=== PATIENT | female | born 1975 | race Caucasian/White ===

== ENCOUNTER 2016-07-21 17:13 | Inpatient (IN) | payer OTHER ==
[~2016-07-21] VITALS: Ht 172.7 cm; Wt 99.9 kg
[~2016-07-21 17:13] MED LIST: ATV5X PO; CHOL20009 PO; HYDR-3785 PO; IMD2X PO; MULT-506 PO; ONDA4TAB46 PO; PRZ1 PO; RBX750 PO; ULT/50 PO
[2016-07-21] MEDS ORDERED: LORAZEPAM 2 MG/ML 1 ML VIAL IV STA (17:30)
[2016-07-21] MEDS ORDERED: SODIUM CHLORIDE 0.9% 1000ML 1,000 ML IV STA (17:30)
[2016-07-21] MEDS ORDERED: LRS10 PO (17:58)
[2016-07-21 18:02] LABS: BASO % 0.2 %; BASO ABS # 0.03 K/uL (0-0.2); COMPLETE YES; EOS % 0.2 %; HEMATOCRIT 41.6 % (37-47); IG% 0.2 %; LYMPH % 8.4 %; LYMPH ABS # 1.09 K/uL (1.2-3.4); MEAN CELL VOLUME 89.1 fL (80-100); MEAN CORPUSCULAR HEMOGLOBIN 30.2 pg (25-34); MEAN CORPUSCULAR HGB CONC 33.9 g/dl (32-36); MEAN PLATELET VOLUME 9.6 fL (7.4-10.4); MONO % 4.2 %; NEUT % 86.8 %; PLATELET COUNT 307 K/uL (130-400); RED BLOOD COUNT 4.67 M/uL (4.2-5.4); WHITE BLOOD COUNT 12.92 K/uL (4.8-10.8)
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
[2016-07-21 18:19] LABS: URINE APPEARANCE CLEAR (CLEAR); URINE BILIRUBIN NEG (NEG); URINE COLOR YELLOW; URINE NITRITE NEG (NEG); URINE SPECIFIC GRAVITY 1.011 (1.000-1.030); UROBILINOGEN NEG (NEG)
[2016-07-21 18:21] LABS: ALT/SGPT 14 U/L (12-78); AST/SGOT 12 U/L (15-37); BLOOD UREA NITROGEN 12 mg/dl (7-18); BUN/CREATININE RATIO 13.8 (10-20); CALCIUM 8.5 mg/dl (8.5-10.1); CARBON DIOXIDE 24 mmol/L (21-32); CHLORIDE 105 mmol/L (98-107); CREATININE 0.89 mg/dl (0.60-1.20); GLUCOSE 84 mg/dl (70-99); POTASSIUM 3.6 mmol/L (3.5-5.1); SODIUM 140 mmol/L (136-145)
--- NOTE | 2016-07-21 18:24 | DIAGNOSTIC IMAGING REPORT ---
CHEST ONE VIEW PORTABLE CLINICAL HISTORY: Overdose. COMPARISON STUDY: Chest CT May 04, 2011 FINDINGS: There are cholecystectomy clips. No pneumothorax or pleural effusion is present. No consolidation is identified and there is no evidence of pulmonary edema. Cardiomediastinal silhouette is normal. IMPRESSION: No acute cardiopulmonary findings. Electronically signed by: Joshua Bobo M.D. 07/21/2016 6:23 PM
[2016-07-21 18:25] LABS: ALKALINE PHOSPHATASE 63 U/L (45-117)
[2016-07-21 18:25] LABS: MANUAL MICROSCOPIC REQUIRED? NO; REVIEW REQ? NO
[2016-07-21 18:25] LABS: PROTHROMBIN TIME (PATIENT) 10.4 SECONDS (9.0-12.0)
[2016-07-21 18:34] LABS: ACETAMINOPHEN < 2 ug/ml (10-30)
[2016-07-21 18:39] LABS: BENZODIAZEPINE, URINE NEG (NEG); COCAINE,URINE NEG (NEG); PHENCYCLIDINE, URINE NEG (NEG)
[2016-07-21 18:40] LABS: PREG INTERNAL NEGATIVE QC NEG CLEAR BACKGROUND; PREG INTERNAL POSITIVE QC POS CONTROL LINE
[2016-07-21 18:53] VITALS: O2SAT 99
--- NOTE | 2016-07-21 19:04 | DIAGNOSTIC IMAGING REPORT ---
CT OF THE HEAD WITHOUT CONTRAST CLINICAL HISTORY: Overdose. COMPARISON STUDY: Head CT March 28, 2016. CT DOSE: 601.98 mGy.cm TECHNIQUE: Helical axial images of the head were obtained without IV contrast. Automated exposure control was utilized for the study. FINDINGS: No acute intracranial hemorrhage, midline shift or mass effect is present. Ventricular system is normal. The basilar cisterns are patent. There are no extra-axial collections. Fonseca-white differentiation is maintained. There are no findings to suggest acute dural sinus thrombosis or acute territorial infarct. There is no calvarial fracture. Visualized portions of the sinuses and mastoid air cells are clear. IMPRESSION: No acute intracranial findings. Electronically signed by: Joshua Bobo M.D. 07/21/2016 7:03 PM
[2016-07-21] MEDS ORDERED: TRAMADOL HCL 50 MG TAB PO STA (22:10)
[2016-07-21] MEDS ORDERED: BACLOFEN TAB 20 MG TAB PO STA (22:10)
[2016-07-21] MEDS ORDERED: hydrOXYzine HCL 25 MG TAB PO STA (23:30)
[2016-07-21] MEDS ORDERED: PRAZOSIN HCL 1 MG CAP PO STA (23:44)
[2016-07-22] MEDS ORDERED: NURSING VERBAL MED ORDER ONE (00:30)
[2016-07-22 00:35] VITALS: O2SAT 95
[2016-07-22 00:45] VITALS: BP 107/68; PULSE 105; TEMP 36.9; Ht 172.7 cm; Wt 99.9 kg
[2016-07-22] MEDS ORDERED: ALUMINUM/MAGNESIUM SUSP 30 ML UDC PO PRN (02:30)
[2016-07-22] MEDS ORDERED: SODIUM CHLORIDE 0.65% NA SOLN 45 ML (OCEAN) PRN (02:30)
[2016-07-22] MEDS ORDERED: LORAZEPAM 0.5 MG TAB PO PRN (02:30)
[2016-07-22] MEDS ORDERED: BISMUTH SUBSALICYLATE PER ML OMNICELL CHARGE PO PRN (02:30)
[2016-07-22] MEDS ORDERED: ACETAMINOPHEN 325 MG TAB PO PRN (02:30)
[2016-07-22] MEDS ORDERED: hydrOXYzine HCL 25 MG TAB PO PRN (02:30)
[2016-07-22] MEDS ORDERED: MAGNESIUM HYDROXIDE SUSP 30 ML UDC PO PRN (02:30)
--- NOTE | 2016-07-22 04:40 | EMERGENCY ROOM VISIT NOTE ---
ED Visit Note First contact with patient: 23:29 40 yr old female medically cleared and signed out to me by Dr Orosco awaiting [facility] placement following attempted overdose on her ativan witnessed by significant other. Evaluated at sign out and getting evening medications. [facility] accepted her to their facility and I signed 201. She was stable and transferred up there without issue.
[2016-07-22 06:50] VITALS: BP 106/67; PULSE 86; TEMP 36.5
[2016-07-22] MEDS ORDERED: LORAZEPAM 1 MG TAB ONE (09:25)
[2016-07-22] MEDS ORDERED: HALOPERIDOL 5 MG TAB ONE (09:25)
[2016-07-22] MEDS ORDERED: LORAZEPAM 2 MG/ML 1 ML VIAL IM PRN (09:30)
[2016-07-22] MEDS ORDERED: LORAZEPAM 1 MG TAB PO PRN (09:30)
[2016-07-22] MEDS ORDERED: HALOPERIDOL LACTATE 5 MG/ML 1 ML VIAL IM PRN (09:30)
[2016-07-22] MEDS ORDERED: HALOPERIDOL 5 MG TAB PO PRN (09:30)
[2016-07-22] MEDS: BACLOFEN 10 MG TAB PO SCH ×3 (09:38→22:03)
[2016-07-22] MEDS: TRAMADOL HCL 50 MG TAB PO PRN ×2 (09:43→22:08)
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
--- NOTE | 2016-07-22 14:26 | Neurology Consultation ---
Neurology Consultation Date of Consultation: Jul 22, 2016. Attending Physician: Jo Andrews MD Primary Care Physician: Giorgio Weiss D.O. Reason for Consultation: chronic headache History of Present Illness Source: patient Manuela is seen in the psychiatry unit for recurrent depression, PTSD, generalized anxiety and panic disorder as well as cannabis and opiate use disorders. She is diagnosed with personality disorder. She was seen in the ED due to an overdose attempt on Ativan. She had attempted to swallow about 20 tablets and then her boyfriend grabbed the bottle and then she spit out the ones in her mouth. She feels the chronic headaches an pain are not tolerable and she can't live this way. She last saw Dr Bacon in Neurology in March and no new medications were started. She has had the most relief from the combination of Ultram 50 mg and Robomol 750 QID. She states last month the Robomol was changed to baclofen which she thinks does not help. Dr Bacon had set her up for pain mgt and EEG for further management but she didn't follow through with the visits stating she was in too much pain to go to the appointments. She states the steroids were tried in the past with little effect. It actually escalated the psychiatric issues. Currently she has a headache that is stabbing behind her eye and it wraps around to the front of her face and jaw. She states she fell 2 months ago and hit her head 3 times while falling down the stairs. denies CP, SOB, abdominal pain, numbness tingling , swallowing issues. +vision changes (blurred) but she does not have her glasses , headaches behind left eye, + generalized pain, + 20 pound weight loss. 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 Allergies Coded Allergies: [place] (Verified Allergy, Severe, VOMITING,ITCHY TONGUE,FACE SWELLING, ) Macadamia Nut Oil (Verified Allergy, Severe, RASH,VOMITING,ITCHY TONGUE, FACE SWELLING, 07/22/16) Valproic Acid (Verified Allergy, Severe, TONGUE SWELLING, 07/22/16) Amoxicillin (Verified Allergy, Intermediate, BREAKOUT, 07/22/16) Ciprofloxacin (Verified Allergy, Intermediate, WELTS/SWELLING, 07/22/16) Clavulanic Acid (Verified Allergy, Intermediate, BREAKOUT, 07/22/16) Pineapple (Verified Allergy, Intermediate, VOMITING, ITCHY TONGUE, ) Iodine (Verified Adverse Reaction, Intermediate, VOMITING, 07/22/16) Erythromycin (Verified Adverse Reaction, Mild, NAUSEA, 07/21/16) Iodinated Contrast Media (Verified Adverse Reaction, Mild, VOMITING, 07/22) Current Inpatient Medications Current Inpatient Medications Medications (Trade) Dose Ordered Sig/Anil Route Start Time Stop Time Status Last Admin Dose Admin Acetaminophen (Tylenol Tab) 650 mg Q4H PRN PO 07/22/16 02:30 08/21/16 02:29 Al Hydroxide/Mg Hydroxide (Maalox Susp) 30 ml Q4H PRN PO 07/22/16 02:30 08/21/16 02:29 Bismuth Subsalicylate (Kaopectate Liqd) 15 ml DAILY PRN PO 07/22/16 02:30 08/21/16 02:29 Magnesium Hydroxide (Milk Of Magnesia Susp) 30 ml DAILY PRN PO 07/22/16 02:30 08/21/16 02:29 Sodium Chloride ([place]nab Nasal Mclean) PRN PRN NA 07/22/16 02:30 08/21/16 02:29 Hydroxyzine HCl (Vistaril Tab) 50 mg HSZ PRN PO 07/22/16 02:30 08/21/16 02:29 Hydroxyzine HCl (Vistaril Tab) 25 mg Q4H PRN PO 07/22/16 02:30 08/21/16 02:29 Prazosin HCl (Prazosin) 1 mg HS PO 07/22/16 22:00 08/21/16 21:59 Ondansetron HCl (Zofran Tab) 4 mg Q6H PRN PO 07/22/16 02:30 08/21/16 02:29 Baclofen (Lioresal Tab) 10 mg TID PO 07/22/16 09:00 08/21/16 08:59 07/22/16 09:38 10 MG Tramadol HCl (Ultram Tab) 50 mg Q6H PRN PO 07/22/16 02:30 08/21/16 02:29 07/22/16 09:43 50 MG Haloperidol Lactate (Haldol Inj) 5 mg Q4 PRN IM 07/22/16 09:30 08/21/16 09:29 Haloperidol (Haldol Tab) 5 mg Q4H PRN PO 07/22/16 09:30 08/21/16 09:29 Lorazepam (Ativan Inj) 1 mg Q4H PRN IM 07/22/16 09:30 08/21/16 09:29 Lorazepam (Ativan Tab) 1 mg Q4 PRN PO 07/22/16 09:30 08/21/16 09:29 Physical Exam Vital Signs (Past 24 Hrs): Date Time Temp Pulse Resp B/P Pulse Ox O2 Delivery O2 Flow Rate FiO2 07/22/16 06:50 36.5 86 16 106/67 07/22/16 00:45 36.9 105 18 107/68 07/22/16 00:35 64 16 134/79 95 Room Air 07/21/16 23:11 64 07/21/16 19:54 65 18 108/54 96 Room Air 07/21/16 19:42 65 07/21/16 18:53 99 Room Air 07/21/16 18:53 70 18 113/53 99 Room Air 07/21/16 17:20 37.1 81 18 124/81 99 Room Air Physical Exam: Constitutional: appearance nourished, healthy and normal Ears, Nose, Mouth and Throat: mucous membranes moist, no injection and skin normal, eyes normal Cardiovascular: normal S-1 and S-2 and regular rate and rhythm Respiratory: clear to auscultation (CTA) and no rales, rhonchi or wheeze Musculoskeletal: no peripheral edema and good distal pulses Skin: no stigmata of neurocutaneous disease noted and normal and intact Eyes: extraocular muscles intact (EOMI) and pupils equal, round and reactive to light (PERRL), pupils dilated, good vascular pulsation disc flat NEUROLOGIC EXAMINATION: Mental status: Alert and interactive Oriented to full date and location Oriented to person Speech fluent with no evidence of aphasia Cranial Nerves smile eye brow raise symmetric, tongue midline Reflexes: Deep tendon reflexes were symmetrical and graded 2/5. Plantar responses were flexor. Sensory: no sensory deficits with vibration, cool touch Coordination: Romberg absent Gait/Stance: Posture normal. Gait normal: with steady with steps, base, turning, and tandem gait. Motor: Negative for pronator drift of out stretched arms with eyes closed. Strength: biceps triceps hand manager storage 4/5 bilaterally (no good effort) hip flex bilaterally 4 /5 halted by pain, plantar flex ext bilaterally 5/5 Laboratory Results Past 24 Hours: 07/21/16 17:50 Red Blood Count 4.67, Mean Corpuscular Volume 89.1, Mean Corpuscular Hemoglobin 30.2, Mean Corpuscular Hemoglobin Concent 33.9, Mean Platelet Volume 9.6, Neutrophils (%) (Auto) 86.8, Lymphocytes (%) (Auto) 8.4, Monocytes (%) (Auto) 4.2, Eosinophils (%) (Auto) 0.2, Basophils (%) (Auto) 0.2, Neutrophils # (Auto) 11.22, Lymphocytes # (Auto) 1.09, Monocytes # (Auto) 0.54, Eosinophils # (Auto) 0.02, Basophils # (Auto) 0.03 07/21/16 17:50 Test 07/21/16 17:50 07/21/16 17:52 07/21/16 17:55 07/21/16 17:57 White Blood Count 12.92 K/uL (4.8-10.8) Red Blood Count 4.67 M/uL (4.2-5.4) Hemoglobin 14.1 g/dL (12.0-16.0) Hematocrit 41.6 % (37-47) Mean Corpuscular Volume 89.1 fL (80-100) Mean Corpuscular Hemoglobin 30.2 pg (25-34) Mean Corpuscular Hemoglobin Concent 33.9 g/dl (32-36) Platelet Count 307 K/uL (130-400) Mean Platelet Volume 9.6 fL (7.4-10.4) Neutrophils (%) (Auto) 86.8 % Lymphocytes (%) (Auto) 8.4 % Monocytes (%) (Auto) 4.2 % Eosinophils (%) (Auto) 0.2 % Basophils (%) (Auto) 0.2 % Neutrophils # (Auto) 11.22 K/uL (1.4-6.5) Lymphocytes # (Auto) 1.09 K/uL (1.2-3.4) Monocytes # (Auto) 0.54 K/uL (0.11-0.59) Eosinophils # (Auto) 0.02 K/uL (0-0.5) Basophils # (Auto) 0.03 K/uL (0-0.2) RDW Standard Deviation 43.6 fL (36.4-46.3) RDW Coefficient of Variation 13.5 % (11.5-14.5) Immature Granulocyte % (Auto) 0.2 % Immature Granulocyte # (Auto) 0.02 K/uL (0.00-0.02) Anion Gap 11.0 mmol/L (3-11) Est Creatinine Clear Calc Drug Dose 102.2 ml/min Estimated GFR () 93.3 Estimated GFR (Non- 80.5 BUN/Creatinine Ratio 13.8 (10-20) Osmolality 290 mOsm/kg (280-300) Calcium Level 8.5 mg/dl (8.5-10.1) Total Bilirubin 0.7 mg/dl (0.2-1) Direct Bilirubin 0.1 mg/dl (0-0.2) Aspartate Amino Transf (AST/SGOT) 12 U/L (15-37) Alanine Aminotransferase (ALT/SGPT) 14 U/L (12-78) Alkaline Phosphatase 63 U/L (45-117) Total Creatine Kinase 34 U/L (26-192) Creatine Kinase MB < 0.5 ng/ml (0.5-3.6) Creatine Kinase MB Ratio (0-3.0) Troponin I < 0.015 ng/ml (0-0.045) Total Protein 7.9 gm/dl (6.4-8.2) Albumin 4.1 gm/dl (3.4-5.0) Lipase 124 U/L (73-393) Human Chorionic Gonadotropin, Qual NEG (NEG) Salicylates Level < 1.7 mg/dl (2.8-20) Acetaminophen Level < 2 ug/ml (10-30) Ethyl Alcohol mg/dL < 3.0 mg/dl (0-3) Prothrombin Time 10.4 SECONDS (9.0-12.0) Prothromb Time International Ratio 1.0 (0.9-1.1) Activated Partial Thromboplast Time 25.8 SECONDS (21.0-31.0) Partial Thromboplastin Ratio 1.0 Urine Color YELLOW Urine Appearance CLEAR (CLEAR) Urine pH 6.0 (4.5-7.5) Urine Specific [place] 1.011 (1.000-1.030) Urine Protein NEG (NEG) Urine Glucose (UA) NEG (NEG) Urine Ketones NEG (NEG) Urine Occult Blood NEG (NEG) Urine Nitrite NEG (NEG) Urine Bilirubin NEG (NEG) Urine Urobilinogen NEG (NEG) Urine Leukocyte Esterase NEG (NEG) Urine Opiates Screen NEG (NEG) Urine Methadone, Qualitative NEG (NEG) Urine Barbiturates NEG (NEG) Urine Phencyclidine (PCP) Level NEG (NEG) Ur Amphetamine/Methamphetamine NEG (NEG) MDMA (Ecstasy) Screen NEG (NEG) Urine Benzodiazepines Screen NEG (NEG) Urine Cocaine Metabolite NEG (NEG) Urine Marijuana (THC) POS (NEG) Imaging CT head- No acute intracranial findings. Impression 40 year old female with psychiatric issues, chronic pain, migraine headaches Plan 1. no further imaging needed- full work up as outpatient for headaches 2. adding additional medication (as she had tried most available) does not seem like a good option at this point 3. EEG - to r/o any seizure focus to headaches and facial phenomenon 4. pain mgt -would recommend injection of trigger points or Botox may be an option 5. possible referral to headache specialist as an out patient 6. further recommendations to follow. I have seen and discussed above patient with Dr Twan Bacon, neurology I have seen this patient on a single outpatient visit in March and felt than that her chronic headache issue would not be solved by yet another medication trial ( she has been on over 40 medications for treatment of her depression and headache issues and to date none has been effective ( other than self medication with marijuana ) and she has multiple comorbidities as well that interfere with the medical model of headache treatment I was planning to have her evaluated for potential injection management ( possibly botox ) and was going to get an eeg to readdress some of the potential seizure disorder questions that have been raised periodically but these plans never came to fruition due to multiple other issues not the least wof which was a mild closed head trauma in the mid fall of this year. I felt that she was going to need a tertiary level of care but her options for this are somewhat limited by insurance and by access within [facility] At this time agree with having pain management evaluate her, getting an eeg, and considering a trial fo hig dose then rapidly tapering steroids if psychiatry would feel it safe in this iinpatient setting We will drop by tomorrow to assess ow things have evolved and will read the eeg when done I agree with the plans outlined by Lilli AVILEZ and have discussed them with her Twan Bacon MD
[2016-07-22] MEDS: PRAZOSIN HCL 1 MG CAP PO SCH (22:04)
[2016-07-22] MEDS: hydrOXYzine HCL 25 MG TAB PO PRN (22:07)
[2016-07-23 06:09] VITALS: BP_SYST 117; BP_SYST 93; BP_DIAS 57; BP_DIAS 77; PULSE 104; PULSE 75; TEMP 36.9
[2016-07-23] MEDS ORDERED: BUPIVACAINE 0.5 % 5 MG/1 ML PF 10ML VIAL ONE (08:23)
[2016-07-23] MEDS ORDERED: TRIAMCINOLONE ACET 40 MG/ML VIAL ONE (08:23)
[2016-07-23 09:09] VITALS: BP 129/84; PULSE 74
--- NOTE | 2016-07-23 09:12 | Operative Note-Pain Management ---
Pain Clinic Operative Note GREATER AND LESSER OCCIPITAL NERVE BLOCKS, AURICULOTEMPORAL, SUPRAORBITAL, AND SUPRATROCHLEAR NERVE BLOCKS PROCEDURE NOTE Diagnosis: Chronic Headache Disorder Side: Right Greater and Lesser Occipital Nerve blocks Left Auriculotemporal, Supraorbital/Supratrochlear, and CNV3 (Mandibular branch ) nerve blocks Surgeon: Dr. Saida Galvna Anesthesia: none Material forwarded to lab: none The patient was counseled on the risks, benefits of the procedure and agrees to proceed. No sign of infection at site of needle insertion. Consent was obtained and witnessed. Time out was performed. Standard vital sign monitors were placed on the patient. A syringe containing a mixture of 12 ml 9ml 0.5% bupivacaine PF and 40mg kenalog and was placed on a 25G needle. Skeletal landmarks identified the greater and lesser occipital nerve on the appropriate side of injection. Then alcohol was utilized for skin preparation. After negative aspiration for blood 2ml were injected in a fan like fashion at each site. Next, the auriculotemporal nerve was identified at 1 ml of the above mix was injected after negative aspiration for blood. Then the supraorbital and supratrochlear nerves were identified and 0.5ml of the above mix was injected at each site after negative aspiration for blood. Finally, the left mandibular branch of CN V3 was blocked with 1ml of above solution in the same manner. All questions were answered prior to departure and report was given to the floor RN. I attest to the content of the Intraoperative Record and any orders documented therein. Any exceptions are noted below.
[2016-07-23] MEDS: BACLOFEN 10 MG TAB PO SCH ×3 (09:20→20:55)
--- NOTE | 2016-07-23 10:32 | CONSULTATION REPORT ---
DATE OF CONSULTATION: 07/23/2016 INPATIENT NEW CONSULT CHIEF COMPLAINT: Headache. HISTORY OF PRESENT ILLNESS: I saw a 40-year-old, MsDinh Ayala today at the [facility]. She was admitted on 07/21/2016 with intentional overdose, having taken 20 Ativan tablets. She reports that this was her first suicide attempt. She states that she has chronic, since the age of 12, headaches and jaw pain and has a history of multiple closed head injuries and jaw dislocation on the left side. She states that it feels like there is "a spike" going through her left eye at this current time as well as through the right-side back of her occiput. She states that pain is chronic and worse with moving around and stress and better with sleeping. She states that pain has gotten to the point where she just wants it to stop, prompting her overdose as well as other stressful things in her life. She states that she has tried about 40 different types of medications to alleviate her pain with no relief. She did have 2 appointments scheduled at our office for evaluation, but no showed for both of those office visits. She denies any bowel or bladder incontinence, motor weakness, footdrop or falls. She admits to blurry vision in the past, but none current. She denies any seizure activity or hemiparesis associated with her headaches. PAST MEDICAL HISTORY: Significant for anxiety, agoraphobia, depression, dysmetabolic syndrome X, fibromyalgia, chronic headache disorder, hemiplegic migraine without status migrainosus, hypokalemia, mood disorder, polycystic ovary syndrome and PTSD. PAST SURGICAL HISTORY: Significant for appendectomy and cholecystectomy. FAMILY HISTORY: Significant for personality disorder and diabetes. SOCIAL HISTORY: She denies tobacco or alcohol usage at this time. She does admit to marijuana usage. She is single with a 15-year-old daughter. MEDICATIONS AND ALLERGIES: Reviewed as per EMR. REVIEW OF SYSTEMS: A 10-point review of systems is otherwise negative. IMAGING STUDIES: CT scan of her head dated 07/21/2016 shows no acute intracranial findings. PHYSICAL EXAMINATION: VITAL SIGNS: Height is 172 cm and her BMI is 33. Blood pressure is 129/84, pulse 74, respirations 16, and temperature 36.9 degrees centigrade. GENERAL: She appears older than her stated age of [age] years old, is awake, alert and oriented x3, appearing in no acute distress, lying in bed. She is exquisitely tender over left supraorbital and supratrochlear nerves. Mildly tender over the right. Tender over the left cranial nerve V3 mandibular branch. Tender over the left auriculotemporal branch. Mildly tender over the left greater occipital and lesser occipital nerves. Nontender over the right auriculotemporal nerve. Exquisitely tender over the right greater and lesser occipital nerves. She has mild spasm located over splenius capitis and bilateral mid and proximal trapezius, left equal to right. She is not tender over her cervical facets. Spurling's maneuver is negative bilaterally. She has adequate range of motion of her cervical spine in all planes. She has 5/5 strength in the bilateral upper extremities, equal throughout with intact sensation. No appreciable ankle clonus. Gait was not observed. ASSESSMENT: 1. Chronic headache disorder. 2. History of chronic migraine without status migrainosus. 3. Depression. 4. Mood disorder. 5. Posttraumatic stress disorder. TREATMENT: 1. We will plan for a left supraorbital, supratrochlear, and auriculotemporal and cranial nerve V3 mandibular branch nerve block as well as a right greater and lesser occipital nerve blocks. Should she have good relief of this, could be a possible candidate for RFA in the future. 2. Would hold on Botox administration at this time due to need for maintenance at every 90-day intervals and suspect this will be difficult for the patient to make these appointments. 3. About 5 minutes after the nerve block was performed, the patient notes start of improvement and reports that it feels as if "the spike" has been removed from her head and her jaw pain is dramatically improved. 4. Would recommend conservative tramadol use and would not escalate narcotics further than tramadol. Would diminish use if possible. 5. Please call with any questions. Thanks for the consult. AMANDA
--- NOTE | 2016-07-23 11:00 | Psychiatric Progress Notes ---
Progress Note Date of Service Jul 23, 2016. Interval History 40 yo female admitted voluntarily on 07/22/16 with severe depression and suicidality, having attempted to OD on ativan but was stopped by her boyfriend. She has along history of mental health treatment for PTSD, depression and borderline personality disorder. Chief Complaint "I have a lot of pain". Subjective Patient was seen & assessed interval progress reviewed with Treatment Team. The patient is focused on reports of pain again today. She was seen by pain management this AM, receiving injections for chronic headaches. At the time of my interview she says that the headache is slightly improved, but mostly feels "numb" from the injection. She says that her mood is "Sad. I have a lot on my plate." and goes on to talk about the rift between she and her mother over her father's estate distribution. She feels that her mother is disregarding father 's wishes for Manuela to have the house and "keeping it all for herself". She talks at length of her pain in various parts of her body, having had "42 trials of antidepressants", "20 rounds of PT", "I need 27 surgeries, but can't have them because I won't heal from them", "no one knows the pain I'm in". She returns to the room after the interview to say that she was angry with me for not validating her pain and only with great effort, was she able to see that my focus is on what she can control now, and less about reviewing all of the things that she can't control. With this discussion she was able to calm down, and agreed that art is something that she can control and has been therapeutic for her in the past. She became quite childlike after this discussion, with a pouting affect and demeanor. She denies acute SI, but has conditional SI saying "if my pain doesn't go away" then life is not worth living. Review of Systems Constitutional: + fatigue ENT: No dental problems, No hearing loss, No nasal symptoms, No problem reported, No sore throat, No tinnitus, No trouble swallowing, No unusual epistaxis Respiratory: No cough, No dyspnea at rest, No dyspnea on exertion, No hemoptysis, No problem reported, No shortness of breath, No sputum, No wheezing Cardiovascular: No PND, No chest pain, No claudication, No edema, No orthopnea , No palpitations, No problem reported Abdomen: No GI bleeding, No constipation, No diarrhea, No nausea, No pain, No problem reported, No vomiting Musculoskeletal: + joint pain (ankles, knees, shoulders, back headache) Neurologic: No balance problems, No memory loss, No numbness/tingling, No paralysis, No problem reported, No vertigo, No weakness Psychiatric: + depression symptoms Integumentary: No bleeding, No color change, No itch, No new/changing skin lesions, No problem reported, No rash Sleep Information Total Hours of Sleep: 5.25 Meal Information Percent of Breakfast Consumed: 0 Percent of Lunch Consumed: 0 Percent of Dinner Consumed: 100 Mental Status Exam During interview pt is: alert and oriented Appearance: appropriately groomed, disheveled (still in hospital gowns) Eye contact is: good Motor behavior is: steady gait & station Speech: loud (and at times rapid) Affect: labile, irritable Mood is: depressed, irritable Thought process: perseveration (regarding pain issues) Thought content: reality based without delusions Suicidal thought are: present (but conditional) Homicidal thoughts are: denied Hallucinations: denies auditory, denies visual Cognition: memory grossly intact, attention grossly intact Intelligence estimated to be: average Insight: impaired Judgement: impaired Medication Trials (1) past psych meds Prozac, paxil, lithium, depakote, risperdal, zyprexa, lamictal, sertraline, amitriptyline, cymbalta Last Edited By: Mary Jo Kay on Jul 23, 2016 10:46 Impression The patient remains irritable and focused on her pain. She is difficult to redirect away from her focus on talking about all that has occurred in the past , and the things that she is unable to achieve. She continues to refuse a trial of an antidepressant, and specifically says that Cymbalta caused her BP to go up. In terms of her BPD, we will need to be consistent with her in our approach, and work to help her feel safe in the milieu to prevent her from further decompensation. We will need to set up a family meeting and have yet to obtain records from OP providers although she did sign releases today. CYS report was made yesterday in deference to the fact that she attempted the OD in the presence of her child. Will encourage group and individual therapy. Continued Inpatient Care The patient continues to require in patient care due to the severity of her condition, and the risk for self harm if discharged. Plan (1) Major depressive disorder, recurrent severe without psychotic features 07/23 - Q 15 min checks for safety - Encourage participation in group and individual counseling - Obtain OP records from [place] and from her therapist - Recommend family meeting with those with whom she lives. - Patient currently refusing a trial of ADM's - Coordinate aftercare with current providers - Assist the patient to learn and utilize healthy coping strategies - Safety plan (2) Chronic post-traumatic stress disorder (PTSD) 07/23/16 - Encourage healthy coping strategies - Individual and group therapies (3) KEN (generalized anxiety disorder) 07/23 - Ativan DC'd s/p OD and will need to coordinate use with OP provider - Assist the patient to learn and utilize healthy coping strategies - Vistaril prn for anxiety or sleep - Encourage mindfulness, deep breathing, relaxation and exercise (4) Panic disorder with agoraphobia 07/23 - see interventions for KEN (5) Borderline personality disorder 07/23 - Be consistent in all boundaries - Assist the patient to have good boundaries with peers - Encourage healthy coping strategies, and discourage dysfunctional ones - Coordinate with OP therapist (6) Cannabis abuse 07/23 - Recommend abstinence - Educate about the negative impact of substances to mood Discharge / Aftercare Planning Primary Care Physician: Name: Dr Weiss Psychiatrist: Name: Gabrielle De Oliveira Therapist: Name: Kortney Henning Director Workforce Management: Name: .none Visit Code E&M Code: 16235 Risk Factors Assessment : Yes /single/: Yes Higher / Fall in social status: No Access to guns: No Health problems: Yes Mental Health Diagnoses: Yes Substance use disorders: Yes Previous attempt: Yes Previous psychiatric stay: Yes Hopelessness: Yes Smoker: No Protective Factors Assessment Moravian beliefs: No : No Responsible for young children: Yes Employed: No Stable relationships: No Supportive family: No Good rapport with provider: Yes Data Vital Signs Last 24 Hrs: Date Time Temp Pulse Resp B/P Pulse Ox O2 Delivery O2 Flow Rate FiO2 07/23/16 09:09 74 16 129/84 07/23/16 06:09 36.9 75 16 93/57 104 117/77 Meds Administered Last 24 Hrs: Meds Administered (Past 24Hrs) Medications (Trade) Dose Ordered Sig/Anil Route Start Time Stop Time Status Last Admin Dose Admin Sodium Chloride (Nss 1000ml) 1,000 ml @ 999 mls/hr Q1H1M STAT IV 07/21/16 17:30 07/21/16 18:30 DC 07/21/16 18:28 999 MLS/HR Lorazepam (Ativan Inj) 1 mg NOW STAT IV 07/21/16 17:30 07/21/16 17:31 DC 07/21/16 18:28 1 MG Tramadol HCl (Ultram Tab) 50 mg NOW STAT PO 07/21/16 22:10 07/21/16 22:11 DC 07/21/16 22:19 50 MG Baclofen (Lioresal Tab) 20 mg ONE STAT PO 07/21/16 22:10 07/21/16 22:11 DC 07/21/16 22:18 20 MG Hydroxyzine HCl (Vistaril Tab) 50 mg NOW STAT PO 07/21/16 23:30 07/21/16 23:32 DC 07/21/16 23:40 50 MG Prazosin HCl (Prazosin) 1 mg ONE STAT PO 07/21/16 23:44 07/21/16 23:45 DC 07/22/16 00:07 1 MG Hydroxyzine HCl (Vistaril Tab) 50 mg HSZ PRN PO 07/22/16 02:30 08/21/16 02:29 07/22/16 22:07 50 MG Prazosin HCl (Prazosin) 1 mg HS PO 07/22/16 22:00 08/21/16 21:59 07/22/16 22:04 1 MG Baclofen (Lioresal Tab) 10 mg TID PO 07/22/16 09:00 08/21/16 08:59 07/23/16 09:20 10 MG Tramadol HCl (Ultram Tab) 50 mg Q6H PRN PO 07/22/16 02:30 08/21/16 02:29 07/22/16 22:08 50 MG Lab Results Last 24 Hrs: 07/21/16 17:50 Red Blood Count 4.67, Mean Corpuscular Volume 89.1, Mean Corpuscular Hemoglobin 30.2, Mean Corpuscular Hemoglobin Concent 33.9, Mean Platelet Volume 9.6, Neutrophils (%) (Auto) 86.8, Lymphocytes (%) (Auto) 8.4, Monocytes (%) (Auto) 4.2, Eosinophils (%) (Auto) 0.2, Basophils (%) (Auto) 0.2, Neutrophils # (Auto) 11.22, Lymphocytes # (Auto) 1.09, Monocytes # (Auto) 0.54, Eosinophils # (Auto) 0.02, Basophils # (Auto) 0.03 07/21/16 17:50 Test 07/21/16 17:50 07/21/16 17:52 07/21/16 17:55 07/21/16 17:57 White Blood Count 12.92 K/uL (4.8-10.8) Red Blood Count 4.67 M/uL (4.2-5.4) Hemoglobin 14.1 g/dL (12.0-16.0) Hematocrit 41.6 % (37-47) Mean Corpuscular Volume 89.1 fL (80-100) Mean Corpuscular Hemoglobin 30.2 pg (25-34) Mean Corpuscular Hemoglobin Concent 33.9 g/dl (32-36) Platelet Count 307 K/uL (130-400) Mean Platelet Volume 9.6 fL (7.4-10.4) Neutrophils (%) (Auto) 86.8 % Lymphocytes (%) (Auto) 8.4 % Monocytes (%) (Auto) 4.2 % Eosinophils (%) (Auto) 0.2 % Basophils (%) (Auto) 0.2 % Neutrophils # (Auto) 11.22 K/uL (1.4-6.5) Lymphocytes # (Auto) 1.09 K/uL (1.2-3.4) Monocytes # (Auto) 0.54 K/uL (0.11-0.59) Eosinophils # (Auto) 0.02 K/uL (0-0.5) Basophils # (Auto) 0.03 K/uL (0-0.2) RDW Standard Deviation 43.6 fL (36.4-46.3) RDW Coefficient of Variation 13.5 % (11.5-14.5) Immature Granulocyte % (Auto) 0.2 % Immature Granulocyte # (Auto) 0.02 K/uL (0.00-0.02) Anion Gap 11.0 mmol/L (3-11) Est Creatinine Clear Calc Drug Dose 102.2 ml/min Estimated GFR () 93.3 Estimated GFR (Non- 80.5 BUN/Creatinine Ratio 13.8 (10-20) Osmolality 290 mOsm/kg (280-300) Calcium Level 8.5 mg/dl (8.5-10.1) Total Bilirubin 0.7 mg/dl (0.2-1) Direct Bilirubin 0.1 mg/dl (0-0.2) Aspartate Amino Transf (AST/SGOT) 12 U/L (15-37) Alanine Aminotransferase (ALT/SGPT) 14 U/L (12-78) Alkaline Phosphatase 63 U/L (45-117) Total Creatine Kinase 34 U/L (26-192) Creatine Kinase MB < 0.5 ng/ml (0.5-3.6) Creatine Kinase MB Ratio (0-3.0) Troponin I < 0.015 ng/ml (0-0.045) Total Protein 7.9 gm/dl (6.4-8.2) Albumin 4.1 gm/dl (3.4-5.0) Lipase 124 U/L (73-393) Human Chorionic Gonadotropin, Qual NEG (NEG) Salicylates Level < 1.7 mg/dl (2.8-20) Acetaminophen Level < 2 ug/ml (10-30) Ethyl Alcohol mg/dL < 3.0 mg/dl (0-3) Prothrombin Time 10.4 SECONDS (9.0-12.0) Prothromb Time International Ratio 1.0 (0.9-1.1) Activated Partial Thromboplast Time 25.8 SECONDS (21.0-31.0) Partial Thromboplastin Ratio 1.0 Urine Color YELLOW Urine Appearance CLEAR (CLEAR) Urine pH 6.0 (4.5-7.5) Urine Specific [place] 1.011 (1.000-1.030) Urine Protein NEG (NEG) Urine Glucose (UA) NEG (NEG) Urine Ketones NEG (NEG) Urine Occult Blood NEG (NEG) Urine Nitrite NEG (NEG) Urine Bilirubin NEG (NEG) Urine Urobilinogen NEG (NEG) Urine Leukocyte Esterase NEG (NEG) Urine Opiates Screen NEG (NEG) Urine Methadone, Qualitative NEG (NEG) Urine Barbiturates NEG (NEG) Urine Phencyclidine (PCP) Level NEG (NEG) Ur Amphetamine/Methamphetamine NEG (NEG) MDMA (Ecstasy) Screen NEG (NEG) Urine Benzodiazepines Screen NEG (NEG) Urine Cocaine Metabolite NEG (NEG) Urine Marijuana (THC) POS (NEG)
[2016-07-23] MEDS ORDERED: PRLSR20 PO (12:59)
[2016-07-23] MEDS ORDERED: RANI150T3 PO (13:01)
[2016-07-23] MEDS: TRAMADOL HCL 50 MG TAB PO PRN ×2 (13:21→20:55)
[2016-07-23] MEDS: ONDANSETRON 4 MG TAB PO PRN (14:10)
--- NOTE | 2016-07-23 15:00 | Neurology Progress Notes ---
Neurology Progress Note Date of Service Jul 23, 2016. Liliana Roy is seen in the psychiatry unit for recurrent depression, PTSD, generalized anxiety and panic disorder as well as cannabis and opiate use disorders. She is diagnosed with personality disorder. She was seen in the ED due to an overdose attempt on Ativan. She had attempted to swallow about 20 tablets and then her boyfriend grabbed the bottle and then she spit out the ones in her mouth. She feels the chronic headaches an pain are not tolerable and she can't live this way. She last saw Dr Bacon in Neurology in March and no new medications were started. She has had the most relief from the combination of Ultram 50 mg and Robomol 750 QID. She states last month the Robomol was changed to baclofen which she thinks does not help. Dr Bacon had set her up for pain mgt and EEG for further management but she didn't follow through with the visits stating she was in too much pain to go to the appointments. She states the steroids were tried in the past with little effect. It actually escalated the psychiatric issues. Currently she has a headache that is stabbing behind her eye and it wraps around to the front of her face and jaw. She states she fell 2 months ago and hit her head 3 times while falling down the stairs. Today her boyfriend is in the room. She states pain management gave her craniocervical injection which felt better right after they started them but now it is hurting worse. She had the EEG this am also and Dr Bacon with see her later and give her the results. denies CP, SOB, abdominal pain, N, V. + headache, back pain, leg pain. Her boyfriend has brought in her TENS unit and she states that does help. Objective Date Time Temp Pulse Resp B/P Pulse Ox O2 Delivery O2 Flow Rate FiO2 07/23/16 09:09 74 16 129/84 07/23/16 06:09 36.9 75 16 93/57 104 117/77 no new labs Imaging: EEG pending read Exam: Physical Exam: Constitutional: appearance nourished, healthy and normal Ears, Nose, Mouth and Throat: mucous membranes moist, no injection and skin normal, eyes normal Cardiovascular: normal S-1 and S-2 and regular rate and rhythm Respiratory: clear to auscultation (CTA) and no rales, ronchi or wheeze Musculoskeletal: no peripheral edema and good distal pulses Skin: no stigmata of neurocutaneous disease noted and normal and intact Eyes: extraocular muscles intact (EOMI) and pupils equal, round and reactive to light (PERRL) NEUROLOGIC EXAMINATION: Mental status: Alert and interactive Oriented to full date and location Oriented to person Speech fluent with no evidence of aphasia, when asked to discuss pain and management or other topics appears to be relaxed. Cranial Nerves facial symmetry Coordination: finger to nose with no bi pass Gait/Stance: lying in bed but moving with no assistance. Strength: hand promotional representative biceps triceps bilaterally 5/5, hip flex plantar flex ext 5/5 bilaterally Current Inpatient Medications Medications (Trade) Dose Ordered Sig/Anil Route Start Time Stop Time Status Last Admin Dose Admin Acetaminophen (Tylenol Tab) 650 mg Q4H PRN PO 07/22/16 02:30 08/21/16 02:29 Al Hydroxide/Mg Hydroxide (Maalox Susp) 30 ml Q4H PRN PO 07/22/16 02:30 08/21/16 02:29 Bismuth Subsalicylate (Kaopectate Liqd) 15 ml DAILY PRN PO 07/22/16 02:30 08/21/16 02:29 Magnesium Hydroxide (Milk Of Magnesia Susp) 30 ml DAILY PRN PO 07/22/16 02:30 08/21/16 02:29 Sodium Chloride (Toole Nasal [place]) PRN PRN NA 07/22/16 02:30 08/21/16 02:29 Hydroxyzine HCl (Vistaril Tab) 50 mg HSZ PRN PO 07/22/16 02:30 08/21/16 02:29 07/22/16 22:07 50 MG Hydroxyzine HCl (Vistaril Tab) 25 mg Q4H PRN PO 07/22/16 02:30 08/21/16 02:29 Prazosin HCl (Prazosin) 1 mg HS PO 07/22/16 22:00 08/21/16 21:59 07/22/16 22:04 1 MG Ondansetron HCl (Zofran Tab) 4 mg Q6H PRN PO 07/22/16 02:30 08/21/16 02:29 07/23/16 14:10 4 MG Baclofen (Lioresal Tab) 10 mg TID PO 07/22/16 09:00 08/21/16 08:59 07/23/16 14:08 10 MG Tramadol HCl (Ultram Tab) 50 mg Q6H PRN PO 07/22/16 02:30 08/21/16 02:29 07/23/16 13:21 50 MG Haloperidol Lactate (Haldol Inj) 5 mg Q4 PRN IM 07/22/16 09:30 08/21/16 09:29 Haloperidol (Haldol Tab) 5 mg Q4H PRN PO 07/22/16 09:30 08/21/16 09:29 Lorazepam (Ativan Inj) 1 mg Q4H PRN IM 07/22/16 09:30 08/21/16 09:29 Lorazepam (Ativan Tab) 1 mg Q4 PRN PO 07/22/16 09:30 08/21/16 09:29 Impression 40 year old female with psychiatric issues, chronic pain, migraine headaches Plan 1. no further imaging needed- full work up as outpatient for headaches 2. adding additional medication (as she had tried most available) does not seem like a good option at this point- will start magnesium 400 mg daily and would try riboflavin but not on formulary in hospital 3. EEG - to r/o any seizure focus to headaches and facial phenomenon-pending read 4. pain mgt - trigger point injections done this am. Will not do botox due to needed follow up 5. possible referral to headache specialist as an out patient 6. no further treatment recommended from neurology stand point-will sign off for now 7. scheduled with Dr Bacon as outpatient can keep current appointment-then can be referred to Sharmila Zaragoza in [place] headache specialist for further intervention I have seen and discussed above patient with Dr Sandra Bacon, neurology Patient dseen and examined and above reviewed with Lilli MOTTA C today was briefly better post injection but pain is now back and she is tearful and openly suicidal in terms of thoughts Am very leery about steroids here but if psych wants to try them wiith close observation of behavior we could go for a short tapering course Mag oxide and riboflavin not likley to help but will do no harm She will need an outpatient specialty headache clinic at a tertiary center post discharge and in light of her [facility] coverage suspect this will have to be Eduin we will see tomorrow but for now have few or no other suggestions sandra Bacon MD
--- NOTE | 2016-07-23 16:18 | ELECTROENCEPHALOGRAPH REPORT ---
CLINICAL DIAGNOSIS: Chronic daily increasingly severe headaches, vague history of syncopal events in the past. Question seizures. EEG DIAGNOSIS: Essentially normal during wakefulness. DESCRIPTION OF TRACING: This EEG was done as a bedside recording with simultaneous video analysis of patient's movement and behavior. The tracing is of good technical quality with few or no muscle or movement artifacts. Photic stimulation was performed. During wakefulness, there is evidence for a normal background rhythm in the alpha range of up to 10 Hz of maximum frequency and 30 microvolts of maximum amplitude. This is maximum in posterior head regions bilaterally symmetrical. Polymorphic mid to lower frequency theta activity is seen over all head regions without clear focal or regional predominance. Anterior head region maximum bilaterally symmetrical low voltage fast activity in the beta range is present. Photic stimulation provokes a modest driving response without a photomyogenic or photoparoxysmal component. At no time during the waking tracing is there evidence for potentially epileptogenic activity in the form of polyspike or spike wave bursts, focal sharp waves or focal spikes. INTERPRETATION: This EEG is essentially normal during wakefulness without evidence for a focal or generalized encephalopathy and without evidence for potentially epileptogenic activity.
[2016-07-23] MEDS: PRAZOSIN HCL 1 MG CAP PO SCH ×2 (20:56→22:00)
[2016-07-23] MEDS: hydrOXYzine HCL 25 MG TAB PO PRN (22:37)
[2016-07-24 06:30] VITALS: BP_SYST 90; BP_SYST 96; BP_DIAS 53; BP_DIAS 58; PULSE 69; PULSE 76; TEMP 36.9
[2016-07-24] MEDS: MAGNESIUM OXIDE 400 MG TAB PO SCH (08:56)
[2016-07-24] MEDS: BACLOFEN 10 MG TAB PO SCH ×3 (08:56→21:42)
[2016-07-24] MEDS: TRAMADOL HCL 50 MG TAB PO PRN ×2 (08:56→17:33)
--- NOTE | 2016-07-24 10:33 | Psychiatric Progress Notes ---
Progress Note Date of Service Jul 24, 2016. Interval History 40 yo female admitted voluntarily on 07/22/16 with severe depression and suicidality, having attempted to OD on ativan but was stopped by her boyfriend. She has along history of mental health treatment for PTSD, depression and borderline personality disorder. Chief Complaint "My pain is back and I'm in hell.". Subjective Patient was seen & assessed interval progress reviewed with Treatment Team. The patient is very dramatic when presenting to the interview room, saying that her equilibrium is off and stumbling into the door frame. She begins the session again by focusing on her pain, which she feels is unrelieved by the injections yesterday and now wants to proceed with the recommended Botox injections. We reviewed her family meeting yesterday with Bina. She acknowledges that she was very angry during the meeting and said things that she did not mean that she is sure were hurtful. She reports a history of "stuffing my anger and not talking" and then behaving badly in response. She admits that she says she's going to kill herself as an expression of her desperation, but does not want to . She feels that [place], Bina's , is angry with her all of the time and doesn't want her there, but with exploration is able to acknowledge that perhaps she is projecting her own anger onto others. She is trying to differentiate what is hers to own ("most of it") and how to deal with it. She repeats that pain has interfered with her ability to deal with her life, at times confusing her thoughts, and making life unbearable. today she says "I don't want to kill myself.". Nursing reports that she made multiple statements about suicide during her meeting and after. Review of Systems Constitutional: + fatigue ENT: No dental problems, No hearing loss, No nasal symptoms, No problem reported, No sore throat, No tinnitus, No trouble swallowing, No unusual epistaxis Respiratory: No cough, No dyspnea at rest, No dyspnea on exertion, No hemoptysis, No problem reported, No shortness of breath, No sputum, No wheezing Cardiovascular: No PND, No chest pain, No claudication, No edema, No orthopnea , No palpitations, No problem reported Abdomen: No GI bleeding, No constipation, No diarrhea, No nausea, No pain, No problem reported, No vomiting Musculoskeletal: + problem reported (pain in multiple joints) Neurologic: No balance problems, No memory loss, No numbness/tingling, No paralysis, No problem reported, No vertigo, No weakness Psychiatric: + depression symptoms Integumentary: No bleeding, No color change, No itch, No new/changing skin lesions, No problem reported, No rash Sleep Information Total Hours of Sleep: 3.25 Meal Information Percent of Breakfast Consumed: 100 Percent of Lunch Consumed: 100 Percent of Dinner Consumed: 90 Mental Status Exam During interview pt is: alert and oriented Appearance: appropriately groomed, disheveled (still in hospital gowns) Eye contact is: good Motor behavior is: steady gait & station Speech: loud (and at times rapid) Affect: labile, irritable Mood is: depressed, irritable Thought process: perseveration (regarding pain issues) Thought content: reality based without delusions Suicidal thought are: present (but conditional) Homicidal thoughts are: denied Hallucinations: denies auditory, denies visual Cognition: memory grossly intact, attention grossly intact Intelligence estimated to be: average Insight: impaired Judgement: impaired Medication Trials (1) past psych meds Prozac, paxil, lithium, depakote, risperdal, zyprexa, lamictal, sertraline, amitriptyline, cymbalta Last Edited By: Mary Jo Kay on Jul 23, 2016 10:46 Impression Difficult meeting with her boyfriend Bina yesterday, finding it difficult to hear him say that her behavior needs to change. She responded catastrophically with threats to kill herself, but has pulled back from that saying that she doesn't want to . We discussed the need to learn a new emotional vocabulary rather than jumping to suicidality to express her desperation and she seems better able to hear that today. She continues to refuse meds. Will work to set up OP treatment which she says that she attends but Bina says she sabotages. She will need to demonstrate multiple days in which she can be in control and without suicidal statements prior to discharge. She may also benefit from a meeting with bina's [place] with whom she is currently in conflict, if she is to return to their home. Continued Inpatient Care The patient continues to require in patient care due to the severity of her condition, and the risk for self harm if discharged. Plan (1) Major depressive disorder, recurrent severe without psychotic features 07/23 - Q 15 min checks for safety - Encourage participation in group and individual counseling - Obtain OP records from [facility] and from her therapist - Recommend family meeting with those with whom she lives. - Patient currently refusing a trial of ADM's - Coordinate aftercare with current providers - Assist the patient to learn and utilize healthy coping strategies - Safety plan 07/24 - Meeting with boyfriend Bina yesterday - Assist the patient to improve her emotional vocabulary and willing to express her emotions assertively (2) Chronic post-traumatic stress disorder (PTSD) 07/23/16 - Encourage healthy coping strategies - Individual and group therapies (3) KEN (generalized anxiety disorder) 07/23 - Ativan DC'd s/p OD and will need to coordinate use with OP provider - Assist the patient to learn and utilize healthy coping strategies - Vistaril prn for anxiety or sleep - Encourage mindfulness, deep breathing, relaxation and exercise (4) Panic disorder with agoraphobia 07/23 - see interventions for KEN (5) Borderline personality disorder 07/23 - Be consistent in all boundaries - Assist the patient to have good boundaries with peers - Encourage healthy coping strategies, and discourage dysfunctional ones - Coordinate with OP therapist (6) Cannabis abuse 07/23 - Recommend abstinence - Educate about the negative impact of substances to mood Discharge / Aftercare Planning Primary Care Physician: Name: Dr Weiss Psychiatrist: Name: Gabrielle De Oliveira Therapist: Name: Kortney Henning Rate And Cost Analyst: Name: .none Visit Code E&M Code: 30055 Risk Factors Assessment : Yes /single/: Yes Higher / Fall in social status: No Access to guns: No Health problems: Yes Mental Health Diagnoses: Yes Substance use disorders: Yes Previous attempt: Yes Previous psychiatric stay: Yes Hopelessness: Yes Smoker: No Protective Factors Assessment Oriental [employer] beliefs: No : No Responsible for young children: Yes Employed: No Stable relationships: No Supportive family: No Good rapport with provider: Yes Data Vital Signs Last 24 Hrs: Date Time Temp Pulse Resp B/P Pulse Ox O2 Delivery O2 Flow Rate FiO2 07/24/16 06:30 36.9 69 16 96/53 76 90/58 Meds Administered Last 24 Hrs: Meds Administered (Past 24Hrs) Medications (Trade) Dose Ordered Sig/Anil Route Start Time Stop Time Status Last Admin Dose Admin Prazosin HCl (Prazosin) 1 mg HS PO 07/22/16 22:00 08/21/16 21:59 07/23/16 22:00 1 MG Magnesium Oxide (Mag-Ox Tab) 400 mg QAM PO 07/24/16 09:00 08/23/16 08:59 07/24/16 08:56 400 MG Lab Results Last 24 Hrs: 07/21/16 17:50 Red Blood Count 4.67, Mean Corpuscular Volume 89.1, Mean Corpuscular Hemoglobin 30.2, Mean Corpuscular Hemoglobin Concent 33.9, Mean Platelet Volume 9.6, Neutrophils (%) (Auto) 86.8, Lymphocytes (%) (Auto) 8.4, Monocytes (%) (Auto) 4.2, Eosinophils (%) (Auto) 0.2, Basophils (%) (Auto) 0.2, Neutrophils # (Auto) 11.22, Lymphocytes # (Auto) 1.09, Monocytes # (Auto) 0.54, Eosinophils # (Auto) 0.02, Basophils # (Auto) 0.03 07/21/16 17:50 Test 07/21/16 17:50 07/21/16 17:52 07/21/16 17:55 07/21/16 17:57 White Blood Count 12.92 K/uL (4.8-10.8) Red Blood Count 4.67 M/uL (4.2-5.4) Hemoglobin 14.1 g/dL (12.0-16.0) Hematocrit 41.6 % (37-47) Mean Corpuscular Volume 89.1 fL (80-100) Mean Corpuscular Hemoglobin 30.2 pg (25-34) Mean Corpuscular Hemoglobin Concent 33.9 g/dl (32-36) Platelet Count 307 K/uL (130-400) Mean Platelet Volume 9.6 fL (7.4-10.4) Neutrophils (%) (Auto) 86.8 % Lymphocytes (%) (Auto) 8.4 % Monocytes (%) (Auto) 4.2 % Eosinophils (%) (Auto) 0.2 % Basophils (%) (Auto) 0.2 % Neutrophils # (Auto) 11.22 K/uL (1.4-6.5) Lymphocytes # (Auto) 1.09 K/uL (1.2-3.4) Monocytes # (Auto) 0.54 K/uL (0.11-0.59) Eosinophils # (Auto) 0.02 K/uL (0-0.5) Basophils # (Auto) 0.03 K/uL (0-0.2) RDW Standard Deviation 43.6 fL (36.4-46.3) RDW Coefficient of Variation 13.5 % (11.5-14.5) Immature Granulocyte % (Auto) 0.2 % Immature Granulocyte # (Auto) 0.02 K/uL (0.00-0.02) Anion Gap 11.0 mmol/L (3-11) Est Creatinine Clear Calc Drug Dose 102.2 ml/min Estimated GFR () 93.3 Estimated GFR (Non- 80.5 BUN/Creatinine Ratio 13.8 (10-20) Osmolality 290 mOsm/kg (280-300) Calcium Level 8.5 mg/dl (8.5-10.1) Total Bilirubin 0.7 mg/dl (0.2-1) Direct Bilirubin 0.1 mg/dl (0-0.2) Aspartate Amino Transf (AST/SGOT) 12 U/L (15-37) Alanine Aminotransferase (ALT/SGPT) 14 U/L (12-78) Alkaline Phosphatase 63 U/L (45-117) Total Creatine Kinase 34 U/L (26-192) Creatine Kinase MB < 0.5 ng/ml (0.5-3.6) Creatine Kinase MB Ratio (0-3.0) Troponin I < 0.015 ng/ml (0-0.045) Total Protein 7.9 gm/dl (6.4-8.2) Albumin 4.1 gm/dl (3.4-5.0) Lipase 124 U/L (73-393) Human Chorionic Gonadotropin, Qual NEG (NEG) Salicylates Level < 1.7 mg/dl (2.8-20) Acetaminophen Level < 2 ug/ml (10-30) Ethyl Alcohol mg/dL < 3.0 mg/dl (0-3) Prothrombin Time 10.4 SECONDS (9.0-12.0) Prothromb Time International Ratio 1.0 (0.9-1.1) Activated Partial Thromboplast Time 25.8 SECONDS (21.0-31.0) Partial Thromboplastin Ratio 1.0 Urine Color YELLOW Urine Appearance CLEAR (CLEAR) Urine pH 6.0 (4.5-7.5) Urine Specific [place] 1.011 (1.000-1.030) Urine Protein NEG (NEG) Urine Glucose (UA) NEG (NEG) Urine Ketones NEG (NEG) Urine Occult Blood NEG (NEG) Urine Nitrite NEG (NEG) Urine Bilirubin NEG (NEG) Urine Urobilinogen NEG (NEG) Urine Leukocyte Esterase NEG (NEG) Urine Opiates Screen NEG (NEG) Urine Methadone, Qualitative NEG (NEG) Urine Barbiturates NEG (NEG) Urine Phencyclidine (PCP) Level NEG (NEG) Ur Amphetamine/Methamphetamine NEG (NEG) MDMA (Ecstasy) Screen NEG (NEG) Urine Benzodiazepines Screen NEG (NEG) Urine Cocaine Metabolite NEG (NEG) Urine Marijuana (THC) POS (NEG)
--- NOTE | 2016-07-24 14:58 | Neurology Progress Notes ---
Neurology Progress Note Date of Service Jul 24, 2016. Liliana Roy is seen in the psychiatry unit for recurrent depression, PTSD, generalized anxiety and panic disorder as well as cannabis and opiate use disorders. She is diagnosed with personality disorder. She was seen in the ED due to an overdose attempt on Ativan. She had attempted to swallow about 20 tablets and then her boyfriend grabbed the bottle and then she spit out the ones in her mouth. She feels the chronic headaches an pain are not tolerable and she can't live this way. She last saw Dr Bacon in Neurology in March and no new medications were started. She has had the most relief from the combination of Ultram 50 mg and Robomol 750 QID. She states last month the Robomol was changed to baclofen which she thinks does not help. Dr Bacon had set her up for pain mgt and EEG for further management but she didn't follow through with the visits stating she was in too much pain to go to the appointments. She states the steroids were tried in the past with little effect. It actually escalated the psychiatric issues. Currently she has a headache that is stabbing behind her eye and it wraps around to the front of her face and jaw. She states she fell 2 months ago and hit her head 3 times while falling down the stairs. Currently she is a group sitting and doing well. She appears very in gauged with what she is doing. She waves out the window and has a smile on her face. Nursing staff reports that she thinks the injections are helping and they offered her botox as an outpatient. Objective Date Time Temp Pulse Resp B/P Pulse Ox O2 Delivery O2 Flow Rate FiO2 07/24/16 06:30 36.9 69 16 96/53 76 90/58 no new labs Imaging: This EEG is essentially normal during wakefulness without evidence for a focal or generalized encephalopathy and without evidence for potentially epileptogenic activity. Exam: gen: appears in no acute distress, pleasant, engaged in activity, smiles and waves sitting and moving with no difficulty or any signs of pain. Current Inpatient Medications Medications (Trade) Dose Ordered Sig/Anil Route Start Time Stop Time Status Last Admin Dose Admin Acetaminophen (Tylenol Tab) 650 mg Q4H PRN PO 07/22/16 02:30 08/21/16 02:29 Al Hydroxide/Mg Hydroxide (Maalox Susp) 30 ml Q4H PRN PO 07/22/16 02:30 08/21/16 02:29 Bismuth Subsalicylate (Kaopectate Liqd) 15 ml DAILY PRN PO 07/22/16 02:30 08/21/16 02:29 Magnesium Hydroxide (Milk Of Magnesia Susp) 30 ml DAILY PRN PO 07/22/16 02:30 08/21/16 02:29 Sodium Chloride ([place] Nasal [place]) PRN PRN NA 07/22/16 02:30 08/21/16 02:29 Hydroxyzine HCl (Vistaril Tab) 50 mg HSZ PRN PO 07/22/16 02:30 08/21/16 02:29 07/23/16 22:37 50 MG Hydroxyzine HCl (Vistaril Tab) 25 mg Q4H PRN PO 07/22/16 02:30 08/21/16 02:29 Prazosin HCl (Prazosin) 1 mg HS PO 07/22/16 22:00 08/21/16 21:59 07/23/16 22:00 1 MG Ondansetron HCl (Zofran Tab) 4 mg Q6H PRN PO 07/22/16 02:30 08/21/16 02:29 07/23/16 14:10 4 MG Baclofen (Lioresal Tab) 10 mg TID PO 07/22/16 09:00 08/21/16 08:59 07/24/16 14:20 10 MG Tramadol HCl (Ultram Tab) 50 mg Q6H PRN PO 07/22/16 02:30 08/21/16 02:29 07/24/16 08:56 50 MG Haloperidol Lactate (Haldol Inj) 5 mg Q4 PRN IM 07/22/16 09:30 08/21/16 09:29 Haloperidol (Haldol Tab) 5 mg Q4H PRN PO 07/22/16 09:30 08/21/16 09:29 Lorazepam (Ativan Inj) 1 mg Q4H PRN IM 07/22/16 09:30 08/21/16 09:29 Lorazepam (Ativan Tab) 1 mg Q4 PRN PO 07/22/16 09:30 08/21/16 09:29 Magnesium Oxide (Mag-Ox Tab) 400 mg QAM PO 07/24/16 09:00 08/23/16 08:59 07/24/16 08:56 400 MG Impression 40 year old female with psychiatric issues, chronic pain, migraine headaches Plan 1. no further imaging needed- full work up as outpatient for headaches 2. adding additional medication (as she had tried most available) does not seem like a good option at this point- will start magnesium 400 mg daily and would try riboflavin but not on formulary in hospital 3. EEG - to r/o any seizure focus to headaches and facial phenomenon- had no recorded seizure activity-WNL 4. pain mgt - trigger point injections done - botox may be option as outpatient 5. possible referral to headache specialist as an out patient 6. no further treatment recommended from neurology stand point-will sign off for now 7. scheduled with Dr Bacon as outpatient can keep current appointment-then can be referred to Sharmila Zaragoza in [place] headache specialist for further intervention I have seen and discussed above patient with Dr Twan Bacon, neurology Significantly improved denies suicidality now haeadache down to a 6/10 which for her is tolerable and she looks well Pain minagement has seen her and she my wel be a botox candidate Neurology will sign off at this point We can see her as neede but if botox fails to afford relief she is going to need to move on to a tertiary level headache clinic Twan Bacon MD
[2016-07-24] MEDS: hydrOXYzine HCL 25 MG TAB PO PRN (22:52)
[2016-07-24] MEDS: PRAZOSIN HCL 1 MG CAP PO SCH (22:53)
--- NOTE | 2016-07-25 05:15 | MEDICAL INTERVAL PROGRESS NOTE ---
DATE: 07/24/2016 Room number jordin 325, bed 1. The patient was seen this morning for followup after undergoing peripheral cranial nerve blocks. This morning she reports that she had relief for approximately 4 hours of her typical pain over the right jaw as well as her headache. She reports her symptoms recurred since then. She denies any other problems or other persistent symptoms. PHYSICAL EXAMINATION: Exam demonstrates injection site to be unremarkable. She has diffuse tenderness over the calvarium. She has pain over the left mandibular region. ASSESSMENT: Tension headaches responsive to peripheral cranial nerve blockade. TREATMENT AND RECOMMENDATIONS: Recommended either Botox injections or RFA. The patient was instructed on the risks, benefits as well as alternatives with reference to longer term relief of headaches using either Botox or radiofrequency ablation. Her questions were answered. She requires more time to review her options and decide. If she does elect to proceed with RFA or Botox, she can contact the pain management center at [facility] after discharge.
[2016-07-25 06:41] VITALS: BP 120/71; PULSE 77; TEMP 36.8
[2016-07-25] MEDS: BACLOFEN 10 MG TAB PO SCH ×3 (09:01→21:16)
[2016-07-25] MEDS: MAGNESIUM OXIDE 400 MG TAB PO SCH (09:02)
[2016-07-25] MEDS: TRAMADOL HCL 50 MG TAB PO PRN ×3 (09:05→23:47)
--- NOTE | 2016-07-25 11:50 | Psychiatric Progress Notes ---
Progress Note Date of Service Jul 25, 2016. Interval History 40 yo female admitted voluntarily on 07/22/16 with severe depression and suicidality, having attempted to OD on ativan but was stopped by her boyfriend. She has along history of mental health treatment for PTSD, depression and borderline personality disorder. Chief Complaint "I'm in hell again.". Subjective Patient was seen & assessed interval progress reviewed with Treatment Team. The patient says that she had a relatively good evening yesterday, feeling that her pain was somewhat controlled (6-02/02) and even had a good conversation with her boyfriend Yves. She said that she apologized to him and described herself as "a spaz" and that she didn't really want to kill herself. They talked about some fun things happening at home with the kitten and their dogs which amused her. She continues to feel frustrated with her pain, that she perceives is altering her personality, describing it as "exhausting". She denies suicidal thoughts, but says that her pain was worse upon awakening today, which made her feel like "How am I going to get through this?". She has decided that she wants to proceed with Botox injections for her headaches, which will likely occur as an OP with pain management. Nursing reports that she has been attending groups with good participation Review of Systems Constitutional: + fatigue (related to chronic pain) ENT: No dental problems, No hearing loss, No nasal symptoms, No problem reported, No sore throat, No tinnitus, No trouble swallowing, No unusual epistaxis Respiratory: No cough, No dyspnea at rest, No dyspnea on exertion, No hemoptysis, No problem reported, No shortness of breath, No sputum, No wheezing Cardiovascular: No PND, No chest pain, No claudication, No edema, No orthopnea , No palpitations, No problem reported Abdomen: No GI bleeding, No constipation, No diarrhea, No nausea, No pain, No problem reported, No vomiting Musculoskeletal: No calf pain, No joint pain, No muscle pain, No problem reported, No swelling Neurologic: + problem reported (chronic GIVENS) Psychiatric: + depression symptoms Integumentary: No bleeding, No color change, No itch, No new/changing skin lesions, No problem reported, No rash Sleep Information Total Hours of Sleep: 5.75 Meal Information Percent of Breakfast Consumed: 25 Percent of Lunch Consumed: 100 Percent of Dinner Consumed: 0 Mental Status Exam During interview pt is: alert and oriented Appearance: appropriately groomed, disheveled (still in hospital gowns) Eye contact is: good Motor behavior is: steady gait & station Speech: loud (and at times rapid) Affect: labile, irritable Mood is: depressed, irritable Thought process: perseveration (regarding pain issues) Thought content: reality based without delusions Suicidal thought are: present (but conditional) Homicidal thoughts are: denied Hallucinations: denies auditory, denies visual Cognition: memory grossly intact, attention grossly intact Intelligence estimated to be: average Insight: impaired Judgement: impaired Medication Trials (1) past psych meds Prozac, paxil, lithium, depakote, risperdal, zyprexa, lamictal, sertraline, amitriptyline, cymbalta Last Edited By: Mary Jo Kay on Jul 23, 2016 10:46 Impression In better control today, and is no longer suicidal. Pain remains her focus and has now decided to proceed with the recommended botox injections. She continues to refuse medications, saying that she has had many trials in the past without benefit, but is participation in group and individual counseling with some success. Her coping strategies and interpersonal relationships remain problematic, and will need to have nursing home therapy for her BPD. If she can sustain several days in which she is in good emotional and behavioral control, could consider discharge. Continued Inpatient Care The patient continues to require in patient care due to the severity of her condition, and the risk for self harm if discharged. Plan (1) Major depressive disorder, recurrent severe without psychotic features 07/23 - Q 15 min checks for safety - Encourage participation in group and individual counseling - Obtain OP records from [place] and from her therapist - Recommend family meeting with those with whom she lives. - Patient currently refusing a trial of ADM's - Coordinate aftercare with current providers - Assist the patient to learn and utilize healthy coping strategies - Safety plan 07/24 - Meeting with boyfriend Yves yesterday - Assist the patient to improve her emotional vocabulary and willing to express her emotions assertively (2) Chronic post-traumatic stress disorder (PTSD) 07/23/ - Encourage healthy coping strategies - Individual and group therapies (3) KEN (generalized anxiety disorder) 07/23 - Ativan DC'd s/p OD and will need to coordinate use with OP provider - Assist the patient to learn and utilize healthy coping strategies - Vistaril prn for anxiety or sleep - Encourage mindfulness, deep breathing, relaxation and exercise (4) Panic disorder with agoraphobia 07/23 - see interventions for KEN (5) Borderline personality disorder 07/23 - Be consistent in all boundaries - Assist the patient to have good boundaries with peers - Encourage healthy coping strategies, and discourage dysfunctional ones - Coordinate with OP therapist (6) Cannabis abuse 07/23 - Recommend abstinence - Educate about the negative impact of substances to mood Discharge / Aftercare Planning Primary Care Physician: Name: Dr Weiss Date of Appointment: Sep 30, 2016 Time of Appointment: 6:50pm Psychiatrist: Name: Kee De Oliveira Date of Appointment: Aug 04, 2016 Time of Appointment: 1:00pm Appointment Notes: Hospital follow up visit will be 30 minutes Therapist: Name: Kortney Henning De Alcoholizer: Name: sadaf Neurologist: Name: Dr. Bacon Phone Number: [phone] Appointment Notes: Waiting for phone call back for landscaping crew leader: Name: [facility] Phone Number: [phone] Date of Appointment: Aug 12, 2016 Time of Appointment: 2:20 pm Visit Code E&M Code: 25603 Risk Factors Assessment : Yes /single/: Yes Higher / Fall in social status: No Access to guns: No Health problems: Yes Mental Health Diagnoses: Yes Substance use disorders: Yes Previous attempt: Yes Previous psychiatric stay: Yes Hopelessness: Yes Smoker: No Protective Factors Assessment Oriental Orthodox beliefs: No : No Responsible for young children: Yes Employed: No Stable relationships: No Supportive family: No Good rapport with provider: Yes Data Vital Signs Last 24 Hrs: Date Time Temp Pulse Resp B/P Pulse Ox O2 Delivery O2 Flow Rate FiO2 07/25/16 06:41 36.8 77 16 120/71 Meds Administered Last 24 Hrs: Meds Administered (Past 24Hrs) Medications (Trade) Dose Ordered Sig/Anil Route Start Time Stop Time Status Last Admin Dose Admin Magnesium Oxide (Mag-Ox Tab) 400 mg QAM PO 07/24/16 09:00 08/23/16 08:59 12/30/16 09:02 400 MG Lab Results Last 24 Hrs: 07/21/16 17:50 Red Blood Count 4.67, Mean Corpuscular Volume 89.1, Mean Corpuscular Hemoglobin 30.2, Mean Corpuscular Hemoglobin Concent 33.9, Mean Platelet Volume 9.6, Neutrophils (%) (Auto) 86.8, Lymphocytes (%) (Auto) 8.4, Monocytes (%) (Auto) 4.2, Eosinophils (%) (Auto) 0.2, Basophils (%) (Auto) 0.2, Neutrophils # (Auto) 11.22, Lymphocytes # (Auto) 1.09, Monocytes # (Auto) 0.54, Eosinophils # (Auto) 0.02, Basophils # (Auto) 0.03 07/21/16 17:50 Test 07/21/16 17:50 07/21/16 17:52 07/21/16 17:55 07/21/16 17:57 White Blood Count 12.92 K/uL (4.8-10.8) Red Blood Count 4.67 M/uL (4.2-5.4) Hemoglobin 14.1 g/dL (12.0-16.0) Hematocrit 41.6 % (37-47) Mean Corpuscular Volume 89.1 fL (80-100) Mean Corpuscular Hemoglobin 30.2 pg (25-34) Mean Corpuscular Hemoglobin Concent 33.9 g/dl (32-36) Platelet Count 307 K/uL (130-400) Mean Platelet Volume 9.6 fL (7.4-10.4) Neutrophils (%) (Auto) 86.8 % Lymphocytes (%) (Auto) 8.4 % Monocytes (%) (Auto) 4.2 % Eosinophils (%) (Auto) 0.2 % Basophils (%) (Auto) 0.2 % Neutrophils # (Auto) 11.22 K/uL (1.4-6.5) Lymphocytes # (Auto) 1.09 K/uL (1.2-3.4) Monocytes # (Auto) 0.54 K/uL (0.11-0.59) Eosinophils # (Auto) 0.02 K/uL (0-0.5) Basophils # (Auto) 0.03 K/uL (0-0.2) RDW Standard Deviation 43.6 fL (36.4-46.3) RDW Coefficient of Variation 13.5 % (11.5-14.5) Immature Granulocyte % (Auto) 0.2 % Immature Granulocyte # (Auto) 0.02 K/uL (0.00-0.02) Anion Gap 11.0 mmol/L (3-11) Est Creatinine Clear Calc Drug Dose 102.2 ml/min Estimated GFR () 93.3 Estimated GFR (Non- 80.5 BUN/Creatinine Ratio 13.8 (10-20) Osmolality 290 mOsm/kg (280-300) Calcium Level 8.5 mg/dl (8.5-10.1) Total Bilirubin 0.7 mg/dl (0.2-1) Direct Bilirubin 0.1 mg/dl (0-0.2) Aspartate Amino Transf (AST/SGOT) 12 U/L (15-37) Alanine Aminotransferase (ALT/SGPT) 14 U/L (12-78) Alkaline Phosphatase 63 U/L (45-117) Total Creatine Kinase 34 U/L (26-192) Creatine Kinase MB < 0.5 ng/ml (0.5-3.6) Creatine Kinase MB Ratio (0-3.0) Troponin I < 0.015 ng/ml (0-0.045) Total Protein 7.9 gm/dl (6.4-8.2) Albumin 4.1 gm/dl (3.4-5.0) Lipase 124 U/L (73-393) Human Chorionic Gonadotropin, Qual NEG (NEG) Salicylates Level < 1.7 mg/dl (2.8-20) Acetaminophen Level < 2 ug/ml (10-30) Ethyl Alcohol mg/dL < 3.0 mg/dl (0-3) Prothrombin Time 10.4 SECONDS (9.0-12.0) Prothromb Time International Ratio 1.0 (0.9-1.1) Activated Partial Thromboplast Time 25.8 SECONDS (21.0-31.0) Partial Thromboplastin Ratio 1.0 Urine Color YELLOW Urine Appearance CLEAR (CLEAR) Urine pH 6.0 (4.5-7.5) Urine Specific Mcdaniels 1.011 (1.000-1.030) Urine Protein NEG (NEG) Urine Glucose (UA) NEG (NEG) Urine Ketones NEG (NEG) Urine Occult Blood NEG (NEG) Urine Nitrite NEG (NEG) Urine Bilirubin NEG (NEG) Urine Urobilinogen NEG (NEG) Urine Leukocyte Esterase NEG (NEG) Urine Opiates Screen NEG (NEG) Urine Methadone, Qualitative NEG (NEG) Urine Barbiturates NEG (NEG) Urine Phencyclidine (PCP) Level NEG (NEG) Ur Amphetamine/Methamphetamine NEG (NEG) MDMA (Ecstasy) Screen NEG (NEG) Urine Benzodiazepines Screen NEG (NEG) Urine Cocaine Metabolite NEG (NEG) Urine Marijuana (THC) POS (NEG) Urine Marijuana (THC Carboxy Acid) 367 NG/ML (CUTOFF=5)
--- NOTE | 2016-07-25 14:10 | Psych Management Progress Note ---
Psychiatry Miscellaneous Date of Service: Jul 25, 2016. I personally participated in the case review and medical recommendations outlined in the progress note documented by DEISI Drake. Met with patient to review care/concerns. Remains pain focussed but participating in unit activities today.
[2016-07-25] MEDS: PRAZOSIN HCL 1 MG CAP PO SCH (21:16)
[2016-07-25] MEDS: hydrOXYzine HCL 25 MG TAB PO PRN (23:47)
[2016-07-26 06:52] VITALS: BP_SYST 110; BP_SYST 119; BP_DIAS 71; BP_DIAS 81; PULSE 61; PULSE 84; TEMP 36.8
[2016-07-26] MEDS: BACLOFEN 10 MG TAB PO SCH ×3 (09:03→22:03)
[2016-07-26] MEDS: TRAMADOL HCL 50 MG TAB PO PRN ×2 (09:03→22:06)
[2016-07-26] MEDS: MAGNESIUM OXIDE 400 MG TAB PO SCH (09:03)
--- NOTE | 2016-07-26 10:02 | Psychiatric Progress Notes ---
Progress Note Date of Service Jul 26, 2016. Interval History 40 yo female admitted voluntarily on 07/22/16 with severe depression and suicidality, having attempted to OD on ativan but was stopped by her boyfriend. She has along history of mental health treatment for PTSD, depression and borderline personality disorder. Chief Complaint "I am in pain". Subjective Patient was seen & assessed interval progress reviewed with Nursing staff and chart reviewed Per nursing the patient had visit with boyfriend on 07/25/16 but instead of discussing her relationship issues and CYS concerns regarding 14yo having witnessed suicide attempt they predominantly discussed her pending botox treatments for her pain. She continues to decline medication for her mood/anxiety, emotional reactivity. Patient seen at the bedside she states she is in pain for her GIVENS and it runs down her neck into her back which limits her. She shares that nothing has worked for her. SHe is hopeful for the botox intervention. She declines any further trials of Topamax (states it gave her tremors) or B6 stating it did not help. She states magnesium baths help her absorb magnesium into her muscles and help her relax. SHe states that the magensium helps because it is absorbed in the bath through her skin and wishes she could do that here. When provider affirms behavioral associations with relaxation and skepticism about skin absorption of magnesium for her muscles she states she has read Evidence based peer reviewed articles on this. She back on oral magnesium which she states helps. Encouraged her that behavioral work can be very helpful to train the body in coping and relaxing through chronic pain. She states she has constant anxiety and catastrophic thinking. She states that she is aware that she has catastrophic thinking. She declines medications but states she is willing to trial ABC sheets to help her with her anxiety and pain related thinking. She states she is suicidal when she is in severe pain states she does not have intention or plan "no I feel safe here" but cannot state how she would cope if she again was in severe pain as she was the night of her OD and attempting to take the ativan as TI. Review of Systems She has head pain as above, denies other constitutional symptoms, and is not taking any psychotropic medications, denies SE to her medical medications. Sleep Information Total Hours of Sleep: 5.50 Meal Information Percent of Breakfast Consumed: 25 Percent of Lunch Consumed: 100 Percent of Dinner Consumed: 100 Mental Status Exam During interview pt is: alert and oriented Appearance: appropriately groomed, disheveled (in bed with isaiah thao pj bottoms, t-shirt and star wars pillow case, hair in disarray) Eye contact is: good Motor behavior is: steady gait & station Speech: loud, other (initially slow and pained then becomes r/r/r/v soft tone, when reminded of her GIVENS she again becomes slow and pained) Affect: blunted Mood is: depressed Thought process: perseveration (regarding pain issues seems to ignore her social stressors) Thought content: reality based without delusions Suicidal thought are: present (but conditional on pain) Homicidal thoughts are: denied Hallucinations: denies auditory, denies visual Cognition: memory grossly intact, attention grossly intact Intelligence estimated to be: average Insight: impaired Judgement: impaired Medication Trials (1) past psych meds Prozac, paxil, lithium, depakote, risperdal, zyprexa, lamictal, sertraline, amitriptyline, cymbalta Last Edited By: Mary Jo Kay on Jul 23, 2016 10:46 Impression In better control today, and is no longer suicidal. Pain remains her focus and has now decided to proceed with the recommended botox injections. She continues to refuse medications, saying that she has had many trials in the past without benefit, but is participation in group and individual counseling with some success. Her coping strategies and interpersonal relationships remain problematic, and will need to have termite treater helper therapy for her BPD. If she can sustain several days in which she is in good emotional and behavioral control, could consider discharge. Continued Inpatient Care The patient continues to require in patient care due to the severity of her condition, and the risk for self harm if discharged. Plan (1) Major depressive disorder, recurrent severe without psychotic features 07/23 - Q 15 min checks for safety - Encourage participation in group and individual counseling - Obtain OP records from [place] and from her therapist - Recommend family meeting with those with whom she lives. - Patient currently refusing a trial of ADM's - Coordinate aftercare with current providers - Assist the patient to learn and utilize healthy coping strategies - Safety plan 07/24 - Meeting with boyfriend Yves yesterday - Assist the patient to improve her emotional vocabulary and willing to express her emotions assertively 07/26/16 patient continues to report depressed mood and SI based on her pain she continues to decline medications for depression and anxiety, but is open to CBT, will attempt to engage her in routine use of ABC worksheets (2) Chronic post-traumatic stress disorder (PTSD) 07/23/16 - Encourage healthy coping strategies - Individual and group therapies 07/26/16 continue as above, again work on CBT with ABC sheets for mood, perhaps at times PTSD topics will be touched on at patient's leading (3) KEN (generalized anxiety disorder) 07/23 and continuing - Ativan DC'd s/p OD and will need to coordinate use with OP provider - Assist the patient to learn and utilize healthy coping strategies - Vistaril prn for anxiety or sleep - Encourage mindfulness, deep breathing, relaxation and exercise (4) Panic disorder with agoraphobia 07/23 and continuing - see interventions for KEN (5) Borderline personality disorder 07/23 and continuing - Be consistent in all boundaries - Assist the patient to have good boundaries with peers - Encourage healthy coping strategies, and discourage dysfunctional ones - Coordinate with OP therapist (6) Cannabis abuse 07/23 and continuing - Recommend abstinence - Educate about the negative impact of substances to mood Discharge / Aftercare Planning Primary Care Physician: Name: Dr Weiss Date of Appointment: Sep 30, 2016 Time of Appointment: 6:50pm Psychiatrist: Name: Kee De Oliveira Date of Appointment: Aug 04, 2016 Time of Appointment: 1:00pm Appointment Notes: Hospital follow up visit will be 30 minutes Therapist: Name: Kortney Henning Appointment Notes: Mailbox is full no one else picking up to schedule appointment Head Irrigator: Name: sadaf Neurologist: Name: Dr. Bacon Phone Number: [phone] Date of Appointment: Aug 20, 2016 Time of Appointment: 210pm Appointment Notes: . Specialist: Name: [facility] [place] Phone Number: [phone] Date of Appointment: Aug 12, 2016 Time of Appointment: 2:20 pm Visit Code E&M Code: 56973 Risk Factors Assessment : Yes /single/: Yes Higher / Fall in social status: No Access to guns: No Health problems: Yes Mental Health Diagnoses: Yes Substance use disorders: Yes Previous attempt: Yes Previous psychiatric stay: Yes Hopelessness: Yes Smoker: No Protective Factors Assessment Adventist beliefs: No : No Responsible for young children: Yes Employed: No Stable relationships: No Supportive family: No Good rapport with provider: Yes Data Vital Signs Last 24 Hrs: Date Time Temp Pulse Resp B/P Pulse Ox O2 Delivery O2 Flow Rate FiO2 07/26/16 06:52 36.8 61 16 110/71 84 119/81 Meds Administered Last 24 Hrs: Meds Administered (Past 24Hrs) Medications (Trade) Dose Ordered Sig/Anil Route Start Time Stop Time Status Last Admin Dose Admin Magnesium Oxide (Mag-Ox Tab) 400 mg QAM PO 07/24/16 09:00 08/23/16 08:59 07/25/16 09:02 400 MG
[2016-07-26] MEDS: PRAZOSIN HCL 1 MG CAP PO SCH (22:03)
[2016-07-26] MEDS: hydrOXYzine HCL 25 MG TAB PO PRN (23:23)
[2016-07-27 06:51] VITALS: BP 106/69; PULSE 83; TEMP 36.4
[2016-07-27] MEDS: BACLOFEN 10 MG TAB PO SCH ×3 (08:36→22:20)
[2016-07-27] MEDS: MAGNESIUM OXIDE 400 MG TAB PO SCH (08:36)
[2016-07-27] MEDS: TRAMADOL HCL 50 MG TAB PO PRN ×3 (08:40→23:53)
--- NOTE | 2016-07-27 09:09 | Psychiatric Progress Notes ---
Progress Note Date of Service Jul 27, 2016. Interval History 40 yo female admitted voluntarily on 07/22/16 with severe depression and suicidality, having attempted to OD on ativan but was stopped by her boyfriend. She has along history of mental health treatment for PTSD, depression and borderline personality disorder. Chief Complaint "I am in so much pain". Subjective Patient was seen & assessed interval progress reviewed with nursing staff She is up and attending groups but has variable interactions with other patients (e.g. arguing with a thought disordered patient) She is focussed on tx of her pain Rates mood as 11/03 BF did come in yesterday, and they again did not discuss the CYS visit She had a panic-like attack yesterday able to reduce distress using verbal prompts from staff She took tramadol and vistaril last night and slept 6.5hours. She was seen in her bed today in darkened room initially speaking to provider from under blanket in a whimpering voice then removes blanket and shares she is in significant pain focussed on botox injections when outpatient. She readily admits that she is not doing the behavioral things that help to provide some releive (e.g. TENS unit, heat application, massaging her jaw or distraction) "I am in too much pain" but then states she wants to learn to manage/cope with her pain. She did not do the Thought Record ABC sheets stating it was due to pain. SHe notes she remains distressed andanxious and has suicidal thoughts passive of wishing life were over while on the unit due to her pain. SHe cannot contract for safety if discharged and cannot state ways to be safe if she remains in this much pain. Denies intention or plan of hurting herself on the unit at this time. Review of Systems SIgnificant left sided head and jaw pain that radiates into her neck and back muscles. She denies other physical concerns at this time on ROS Sleep Information Total Hours of Sleep: 6.50 Meal Information Percent of Breakfast Consumed: 0 Percent of Lunch Consumed: 100 Percent of Dinner Consumed: 100 Mental Status Exam During interview pt is: alert and oriented Appearance: appropriately groomed, disheveled (in bed with hello master pj bottoms, t-shirt and star wars pillow case, hair in disarray) Eye contact is: poor Motor behavior is: no abnormal motor movements, other (hiding under her blanket at first and appears pained, followed by matter of fact conversation) Speech: loud, other (initially slow and pained then becomes r/r/r/v soft tone, when reminded of her GIVENS she again becomes slow and pained) Affect: blunted, anxious Mood is: depressed, anxious Thought process: perseveration (regarding pain issues seems to ignore her social stressors) Thought content: reality based without delusions Suicidal thought are: present (but conditional on pain) Homicidal thoughts are: denied Hallucinations: denies auditory, denies visual Cognition: memory grossly intact, attention grossly intact Intelligence estimated to be: average Insight: impaired Judgement: impaired Medication Trials (1) past psych meds Prozac, paxil, lithium, depakote, risperdal, zyprexa, lamictal, sertraline, amitriptyline, cymbalta Last Edited By: Mary Jo Kay on Jul 23, 2016 10:46 Impression Suicidality is passive but correlates with pain. She remains focussed on pain and has an outpatient she has decided to proceed with the recommended botox injections. She continues to refuse psychotropic medications, saying that she has had many trials in the past without benefit, but is participation in group and individual counseling with some success. Her coping strategies and interpersonal relationships remain problematic, and will need to have long term care administrator therapy for her BPD. If she can sustain several days in which she is in good emotional and behavioral control, could consider discharge. Continued Inpatient Care The patient continues to require in patient care due to the severity of her condition, and the risk for self harm if discharged. Plan (1) Major depressive disorder, recurrent severe without psychotic features 07/23 - Q 15 min checks for safety - Encourage participation in group and individual counseling - Obtain OP records from [place] and from her therapist - Recommend family meeting with those with whom she lives. - Patient currently refusing a trial of ADM's - Coordinate aftercare with current providers - Assist the patient to learn and utilize healthy coping strategies - Safety plan 07/24 - Meeting with boyfriend Yves yesterday - Assist the patient to improve her emotional vocabulary and willing to express her emotions assertively 07/26/16 patient continues to report depressed mood and SI based on her pain she continues to decline medications for depression and anxiety, but is open to CBT, will attempt to engage her in routine use of ABC worksheets 07/27/16 again reinforced if her goal is to learn how to manage with her pain, and she declines medications to engage in formal CBT using the ABC "thought record" worksheets, asking her to do 2 today (2) Chronic post-traumatic stress disorder (PTSD) 07/23/16 - Encourage healthy coping strategies - Individual and group therapies 07/26/16 continue as above, again work on CBT with ABC sheets for mood, perhaps at times PTSD topics will be touched on at patient's leading 07/27/16 as above (3) KEN (generalized anxiety disorder) 07/23 and continuing - Ativan DC'd s/p OD and will need to coordinate use with OP provider - Assist the patient to learn and utilize healthy coping strategies - Vistaril prn for anxiety or sleep - Encourage mindfulness, deep breathing, relaxation and exercise (4) Panic disorder with agoraphobia 07/23 and continuing - see interventions for KEN (5) Borderline personality disorder 07/23 and continuing - Be consistent in all boundaries - Assist the patient to have good boundaries with peers - Encourage healthy coping strategies, and discourage dysfunctional ones - Coordinate with OP therapist (consider DBT group at [facility] if elligible and she can travel that distance) (6) Cannabis abuse 07/23 and continuing - Recommend abstinence - Educate about the negative impact of substances to mood (7) Chronic pain Patient has declined further psychotropic trials of medication that may impact pain She has been seen by pain management and been given trial injections indicating that she is a candidate for outpatient botox She has stated desire to learn how to use CBT to cope with her pain but then has not used the exercises/techniques offered to her She has known behavioral strategies that help her pain (TENS, heat application, massage and distraction and routine use of her tramadol) but also has not used those either. Encourage her to use these strategies Encouraged her to take her tramadol consistently. Consider referral to Clinical Health Psychology at [facility] if patient can travel that distance for psychological plan for living with chronic pain. Discharge / Aftercare Planning Primary Care Physician: Name: Dr Weiss Date of Appointment: Sep 30, 2016 Time of Appointment: 6:50pm Psychiatrist: Name: Kee De Oliveira Date of Appointment: Aug 04, 2016 Time of Appointment: 1:00pm Appointment Notes: Hospital follow up visit will be 30 minutes Therapist: Name: Kortney Henning Appointment Notes: Mailbox is full no one else picking up to schedule appointment Movement Assembly Final Inspector: Name: sadaf Neurologist: Name: Dr. Bacon Phone Number: [phone] Date of Appointment: Aug 20, 2016 Time of Appointment: 210pm Appointment Notes: . Specialist: Name: [facility] Phone Number: [phone] Date of Appointment: Aug 12, 2016 Time of Appointment: 2:20 pm Visit Code E&M Code: 45434 Risk Factors Assessment : Yes /single/: Yes Higher / Fall in social status: No Access to guns: No Health problems: Yes Mental Health Diagnoses: Yes Substance use disorders: Yes Previous attempt: Yes Previous psychiatric stay: Yes Hopelessness: Yes Smoker: No Protective Factors Assessment Catholic beliefs: No : No Responsible for young children: Yes Employed: No Stable relationships: No Supportive family: No Good rapport with provider: Yes Data Vital Signs Last 24 Hrs: Date Time Temp Pulse Resp B/P Pulse Ox O2 Delivery O2 Flow Rate FiO2 07/27/16 06:51 36.4 83 16 106/69
[2016-07-27] MEDS: PRAZOSIN HCL 1 MG CAP PO SCH (22:20)
[2016-07-27] MEDS: hydrOXYzine HCL 25 MG TAB PO PRN ×2 (22:21→23:54)
[2016-07-28 06:58] VITALS: BP 106/69; PULSE 63; TEMP 36.9
[2016-07-28] MEDS: MAGNESIUM OXIDE 400 MG TAB PO SCH (08:55)
[2016-07-28] MEDS: BACLOFEN 10 MG TAB PO SCH ×3 (08:55→21:31)
[2016-07-28] MEDS: TRAMADOL HCL 50 MG TAB PO PRN ×3 (08:56→23:45)
[2016-07-28] MEDS: ONDANSETRON 4 MG TAB PO PRN (10:21)
--- NOTE | 2016-07-28 11:31 | Psychiatric Progress Notes ---
Progress Note Date of Service Jul 28, 2016. Interval History 40 yo female admitted voluntarily on 07/22/16 with severe depression and suicidality, having attempted to OD on ativan but was stopped by her boyfriend. She has along history of mental health treatment for PTSD, depression and borderline personality disorder. Chief Complaint "I almost just blacked out". Subjective Patient was seen & assessed interval progress reviewed with Treatment Team. Staff report she stayed in bed most of the day yesterday, reported pain, refused groups and meals. She remains focused on her pain, with conditional SI, saying she will become suicidal if her pain is not better controlled. She is able to list interventions that help for her pain, but doesn't always follow through on them. Today she was seen in her room where she is lying in the dark in bed. She says she "almost blacked out" in group, and had to have staff help her back to her room. She says she "woke up in pain today, it's not a good day. " She was able to eat her breakfast. She says she is drinking lots of fluids and eating snacks, and has several bottles of soda and many sugary snacks on her bedside table. She says she is working on her safety plan, which includes "better communication, knowing what to do when the pain is bad, being more assertive instead of aggressive with my needs." She says her pain is the thing that triggers "all the other stuff, my anxiety, and suicidal thoughts." She denies SI today, but says she "doesn't feel safe to go home, I'm not allowed to go back home like this, I have to feel better." She says she is overwhelmed by her pain and anxiety currently, and reports "panic attacks all day, flashbacks. " She is working on her patient workbook and says the page on catastrophic thinking really applies to her, as "I do every single thing on that page." Sleep Information Total Hours of Sleep: 5.75 Meal Information Percent of Breakfast Consumed: 90 Percent of Lunch Consumed: 100 Percent of Dinner Consumed: 100 Mental Status Exam During interview pt is: alert and oriented, other (lying in bed in darkened room) Appearance: appropriately groomed, disheveled Eye contact is: poor, other (initially lies down with hand over eyes, but later sat up, made better eye contact) Motor behavior is: no abnormal motor movements, other (hiding under her blanket at first and appears pained, followed by matter of fact conversation) Speech: other (dramatic style of speech) Affect: depressed Mood is: depressed, anxious Thought process: perseveration (regarding pain issues seems to ignore her social stressors) Thought content: reality based without delusions Suicidal thought are: present (but conditional on pain) Homicidal thoughts are: denied Hallucinations: denies auditory, denies visual Cognition: memory grossly intact, attention grossly intact Intelligence estimated to be: average Insight: impaired Judgement: impaired Medication Trials (1) past psych meds Prozac, paxil, lithium, depakote, risperdal, zyprexa, lamictal, sertraline, amitriptyline, cymbalta Last Edited By: Mary Jo Kay on Jul 23, 2016 10:46 Impression Suicidality is passive but correlates with pain. She remains focussed on pain and has decided to proceed with the recommended botox injections. She continues to refuse psychotropic medications, saying that she has had many trials in the past without benefit, but is participating in group and individual counseling with some success. Her coping strategies and interpersonal relationships remain problematic, and will need to have buttermaker therapy for her BPD. If she can sustain several days in which she is in good emotional and behavioral control, could consider discharge. Continued Inpatient Care The patient continues to require in patient care due to the severity of her condition, and the risk for self harm if discharged. Plan (1) Major depressive disorder, recurrent severe without psychotic features 07/23 - Q 15 min checks for safety - Encourage participation in group and individual counseling - Obtain OP records from [place] and from her therapist - Recommend family meeting with those with whom she lives. - Patient currently refusing a trial of ADM's - Coordinate aftercare with current providers - Assist the patient to learn and utilize healthy coping strategies - Safety plan 07/24 - Meeting with boyfriend Yves yesterday - Assist the patient to improve her emotional vocabulary and willing to express her emotions assertively 07/26/16 patient continues to report depressed mood and SI based on her pain she continues to decline medications for depression and anxiety, but is open to CBT, will attempt to engage her in routine use of ABC worksheets 07/27/16 - again reinforced if her goal is to learn how to manage with her pain, and she declines medications, resistance to engage in formal CBT using the ABC "thought record" worksheets, asking her to do 2 today 07/28/16 - Needs frequent reinforcement of goals of hospitalization and what might actually be accomplished (safety plan and coping skills for living with chronic pain, not cessation of pain). - Safety plan: Boyfriend confirmed no weapons in home, someone else should keep all meds locked and dispense to her so she doesn't have access to a large amount of pills. (2) Chronic post-traumatic stress disorder (PTSD) 07/23/16 - Encourage healthy coping strategies - Individual and group therapies 07/26/16 continue as above, again work on CBT with ABC sheets for mood, perhaps at times PTSD topics will be touched on at patient's leading 07/27/16 as above (3) KEN (generalized anxiety disorder) 07/23 and continuing - Ativan DC'd s/p OD and will need to coordinate use with OP provider - Assist the patient to learn and utilize healthy coping strategies - Vistaril prn for anxiety or sleep - Encourage mindfulness, deep breathing, relaxation and exercise (4) Panic disorder with agoraphobia 07/23 and continuing - see interventions for KEN (5) Borderline personality disorder 07/23 and continuing - Be consistent in all boundaries - Assist the patient to have good boundaries with peers - Encourage healthy coping strategies, and discourage dysfunctional ones - Coordinate with OP therapist (consider DBT group at [facility] if elligible and she can travel that distance) (6) Cannabis abuse 07/23 and continuing - Recommend abstinence - Educate about the negative impact of substances to mood (7) Chronic pain Patient has declined further psychotropic trials of medication that may impact pain She has been seen by pain management and been given trial injections indicating that she is a candidate for outpatient botox She has stated desire to learn how to use CBT to cope with her pain but then has not used the exercises/techniques offered to her She has known behavioral strategies that help her pain (TENS, heat application, massage and distraction and routine use of her tramadol) but also has not used those either. Encourage her to use these strategies Encouraged her to take her tramadol consistently. Consider referral to Clinical Health Psychology at [facility] if patient can travel that distance for psychological plan for living with chronic pain. Discharge / Aftercare Planning Primary Care Physician: Name: Dr Weiss Date of Appointment: Sep 30, 2016 Time of Appointment: 6:50pm Psychiatrist: Name: Kee De Oliveira Date of Appointment: Aug 04, 2016 Time of Appointment: 1:00pm Appointment Notes: Hospital follow up visit will be 30 minutes Therapist: Name: Kortney Henning Appointment Notes: Mailbox is full no one else picking up to schedule appointment Private Sector Executive: Name: .jessica Neurologist: Name: Dr. Bacon Phone Number: [phone] Date of Appointment: Aug 20, 2016 Time of Appointment: 210pm Appointment Notes: . Specialist: Name: [facility] Phone Number: [phone] Date of Appointment: Aug 12, 2016 Time of Appointment: 2:20 pm Visit Code E&M Code: 55100 Risk Factors Assessment : Yes /single/: Yes Higher / Fall in social status: No Access to guns: No Health problems: Yes Mental Health Diagnoses: Yes Substance use disorders: Yes Previous attempt: Yes Previous psychiatric stay: Yes Hopelessness: Yes Smoker: No Protective Factors Assessment Mandaeism beliefs: No : No Responsible for young children: Yes Employed: No Stable relationships: No Supportive family: No Good rapport with provider: Yes Data Vital Signs Last 24 Hrs: Date Time Temp Pulse Resp B/P Pulse Ox O2 Delivery O2 Flow Rate FiO2 07/28/16 06:58 36.9 63 16 106/69
[2016-07-28 19:42] LABS: SYNTHETIC CANNABINOIDS QL URIN NEGATIVE (Negative)
[2016-07-28] MEDS: PRAZOSIN HCL 1 MG CAP PO SCH (21:32)
[2016-07-28] MEDS: hydrOXYzine HCL 25 MG TAB PO PRN ×2 (22:13→23:44)
[2016-07-29 06:49] VITALS: BP 101/60; PULSE 70; TEMP 36.6
[2016-07-29] MEDS: MAGNESIUM OXIDE 400 MG TAB PO SCH (09:39)
[2016-07-29] MEDS: BACLOFEN 10 MG TAB PO SCH ×3 (09:39→21:02)
[2016-07-29] MEDS: TRAMADOL HCL 50 MG TAB PO PRN ×2 (09:45→21:01)
--- NOTE | 2016-07-29 11:38 | Psychiatric Progress Notes ---
Progress Note Date of Service Jul 29, 2016. Interval History 40 yo female admitted voluntarily on 07/22/16 with severe depression and suicidality, having attempted to OD on ativan but was stopped by her boyfriend. She has along history of mental health treatment for PTSD, depression and borderline personality disorder. Chief Complaint "There's a horrible loop in my head.". Subjective Patient was seen & assessed interval progress reviewed with Treatment Team. The patient says that she has a "terrible loop" of negative thoughts in her head again today. She says that she has them every day, that these are not new. She also reports chronic flashbacks and nightmares, last night having a nightmare that her brother was choking her. She says that she has "thousands of triggers" to her PTSD, and cannot list them all. She continues to complain of GIVENS pain, and was informed that botox injections are an OP procedure with an appt on 08/12/16 with pain management. She describes her anxiety today as having "knots in my stomach" and "panic all the time". She rates her mood today 10/03 but denies SI. She talks about her pain causing her to be someone she does not want to be, that she is mean and acts out toward others when in pain. "Its a big problem for my family.". She talks about having had many losses/ in her life that she has not adequately processed, and says "I don' t know who I am.". Nursing reports that the patient had an extreme reaction to learning that she would be discharged shortly claiming to have too much pain to go home, and that she was suicidal. She even called her boyfriend who then called in to say that he would report us to the [facility]MA if we discharged her. Review of Systems Constitutional: + fatigue ENT: No dental problems, No hearing loss, No nasal symptoms, No problem reported, No sore throat, No tinnitus, No trouble swallowing, No unusual epistaxis Respiratory: No cough, No dyspnea at rest, No dyspnea on exertion, No hemoptysis, No problem reported, No shortness of breath, No sputum, No wheezing Cardiovascular: No PND, No chest pain, No claudication, No edema, No orthopnea , No palpitations, No problem reported Abdomen: No GI bleeding, No constipation, No diarrhea, No nausea, No pain, No problem reported, No vomiting Musculoskeletal: No calf pain, No joint pain, No muscle pain, No problem reported, No swelling Neurologic: + problem reported (headaches) Psychiatric: + anxiety (with panic and agorabphobia), + depression symptoms Sleep Information Total Hours of Sleep: 4.50 Meal Information Percent of Breakfast Consumed: 0 Percent of Lunch Consumed: 0 Percent of Dinner Consumed: 50 Mental Status Exam Appearance: appropriately dressed, appropriately groomed Eye contact is: good Motor behavior is: no abnormal motor movements Speech: normal in rate, rhythm & volume Affect: blunted Mood is: depressed, anxious Thought process: goal directed (but focused on many past issues) Thought content: reality based without delusions Suicidal thought are: denied Homicidal thoughts are: denied Hallucinations: denies auditory, denies visual Cognition: memory grossly intact, attention grossly intact Intelligence estimated to be: average Insight: impaired Judgement: impaired Medication Trials (1) past psych meds Prozac, paxil, lithium, depakote, risperdal, zyprexa, lamictal, sertraline, amitriptyline, cymbalta Last Edited By: Mary Jo Kay on Jul 23, 2016 10:46 Impression Suicidality is passive but correlates with pain. She remains focussed on pain and has decided to proceed with the recommended botox injections. She continues to refuse psychotropic medications, saying that she has had many trials in the past without benefit, but is participating in group and individual counseling with some success. Her coping strategies and interpersonal relationships remain problematic, and will need to have skilled nursing therapy for her BPD. I have suggested, as have others in her past, that EMDR would be a good approach to targe her PTSD, and recommended she explore this with her therapist or insurance. Her problems are chronic and will not necessarily benefit from a short term hospital stay. If she can sustain several days in which she is in good emotional and behavioral control, could consider discharge. Continued Inpatient Care The patient continues to require in patient care due to the severity of her condition, and the risk for self harm if discharged. Plan (1) Major depressive disorder, recurrent severe without psychotic features 07/23 - Q 15 min checks for safety - Encourage participation in group and individual counseling - Obtain OP records from [facility] and from her therapist - Recommend family meeting with those with whom she lives. - Patient currently refusing a trial of ADM's - Coordinate aftercare with current providers - Assist the patient to learn and utilize healthy coping strategies - Safety plan 07/24 - Meeting with doroteo Marinelli yesterday - Assist the patient to improve her emotional vocabulary and willing to express her emotions assertively 07/26/16 patient continues to report depressed mood and SI based on her pain she continues to decline medications for depression and anxiety, but is open to CBT, will attempt to engage her in routine use of ABC worksheets 07/27/16 - again reinforced if her goal is to learn how to manage with her pain, and she declines medications, resistance to engage in formal CBT using the ABC "thought record" worksheets, asking her to do 2 today 07/28/16 - Needs frequent reinforcement of goals of hospitalization and what might actually be accomplished (safety plan and coping skills for living with chronic pain, not cessation of pain). - Safety plan: Elizabethiendebbie confirmed no weapons in home, someone else should keep all meds locked and dispense to her so she doesn't have access to a large amount of pills. (2) Chronic post-traumatic stress disorder (PTSD) 07/23/16 - Encourage healthy coping strategies - Individual and group therapies 07/26/16 continue as above, again work on CBT with ABC sheets for mood, perhaps at times PTSD topics will be touched on at patient's leading 07/27/16 as above 07/29/16 - Recommned patient explore EMDR therapy (3) KEN (generalized anxiety disorder) 07/23 and continuing - Ativan DC'd s/p OD and will need to coordinate use with OP provider - Assist the patient to learn and utilize healthy coping strategies - Vistaril prn for anxiety or sleep - Encourage mindfulness, deep breathing, relaxation and exercise 07/29/16 - Encourage patient to be grounded in the present, and focused on current coping strategies (4) Panic disorder with agoraphobia 07/23 and continuing - see interventions for KEN (5) Borderline personality disorder 07/23 and continuing - Be consistent in all boundaries - Assist the patient to have good boundaries with peers - Encourage healthy coping strategies, and discourage dysfunctional ones - Coordinate with OP therapist (consider DBT group at [facility] if elligible and she can travel that distance) (6) Cannabis abuse 07/23 and continuing - Recommend abstinence - Educate about the negative impact of substances to mood (7) Chronic pain Patient has declined further psychotropic trials of medication that may impact pain She has been seen by pain management and been given trial injections indicating that she is a candidate for outpatient botox She has stated desire to learn how to use CBT to cope with her pain but then has not used the exercises/techniques offered to her She has known behavioral strategies that help her pain (TENS, heat application, massage and distraction and routine use of her tramadol) but also has not used those either. Encourage her to use these strategies Encouraged her to take her tramadol consistently. Consider referral to Clinical Health Psychology at [facility] if patient can travel that distance for psychological plan for living with chronic pain. Discharge / Aftercare Planning Primary Care Physician: Name: Dr Weiss Date of Appointment: Sep 30, 2016 Time of Appointment: 6:50pm Psychiatrist: Name: Kee De Oliveira Date of Appointment: Aug 04, 2016 Time of Appointment: 1:00pm Appointment Notes: Hospital follow up visit will be 30 minutes Therapist: Name: Kortney Henning Appointment Notes: Mailbox is full no one else picking up to schedule appointment Farm Field Manager: Name: sadaf Neurologist: Name: Dr. Bacon Phone Number: [phone] Date of Appointment: Aug 20, 2016 Time of Appointment: 210pm Appointment Notes: . Specialist: Name: [facility] [place] [facility] Phone Number: [phone] Date of Appointment: Aug 12, 2016 Time of Appointment: 2:20 pm Visit Code E&M Code: 52040 Risk Factors Assessment : Yes /single/: Yes Higher / Fall in social status: No Access to guns: No Health problems: Yes Mental Health Diagnoses: Yes Substance use disorders: Yes Previous attempt: Yes Previous psychiatric stay: Yes Hopelessness: Yes Smoker: No Protective Factors Assessment Sikhism beliefs: No : No Responsible for young children: Yes Employed: No Stable relationships: No Supportive family: No Good rapport with provider: Yes Data Vital Signs Last 24 Hrs: Date Time Temp Pulse Resp B/P Pulse Ox O2 Delivery O2 Flow Rate FiO2 07/29/16 06:49 36.6 70 16 101/60 Meds Administered Last 24 Hrs: Current Inpatient Medications Medications (Trade) Dose Ordered Sig/Anil Route Start Time Stop Time Status Last Admin Dose Admin Acetaminophen (Tylenol Tab) 650 mg Q4H PRN PO 07/22/16 02:30 08/21/16 02:29 Al Hydroxide/Mg Hydroxide (Maalox Susp) 30 ml Q4H PRN PO 07/22/16 02:30 08/21/16 02:29 Bismuth Subsalicylate (Kaopectate Liqd) 15 ml DAILY PRN PO 07/22/16 02:30 08/21/16 02:29 Magnesium Hydroxide (Milk Of Magnesia Susp) 30 ml DAILY PRN PO 07/22/16 02:30 08/21/16 02:29 Sodium Chloride ([place] Nasal [place]) PRN PRN NA 07/22/16 02:30 08/21/16 02:29 Hydroxyzine HCl (Vistaril Tab) 50 mg HSZ PRN PO 07/22/16 02:30 08/21/16 02:29 07/28/16 23:44 50 MG Hydroxyzine HCl (Vistaril Tab) 25 mg Q4H PRN PO 07/22/16 02:30 08/21/16 02:29 Prazosin HCl (Prazosin) 1 mg HS PO 07/22/16 22:00 08/21/16 21:59 07/28/16 21:32 1 MG Ondansetron HCl (Zofran Tab) 4 mg Q6H PRN PO 07/22/16 02:30 08/21/16 02:29 07/28/16 10:21 4 MG Baclofen (Lioresal Tab) 10 mg TID PO 07/22/16 09:00 08/21/16 08:59 07/29/16 09:39 10 MG Tramadol HCl (Ultram Tab) 50 mg Q6H PRN PO 07/22/16 02:30 08/21/16 02:29 07/29/16 09:45 50 MG Haloperidol Lactate (Haldol Inj) 5 mg Q4 PRN IM 07/22/16 09:30 08/21/16 09:29 Haloperidol (Haldol Tab) 5 mg Q4H PRN PO 07/22/16 09:30 08/21/16 09:29 Lorazepam (Ativan Inj) 1 mg Q4H PRN IM 07/22/16 09:30 08/21/16 09:29 Lorazepam (Ativan Tab) 1 mg Q4 PRN PO 07/22/16 09:30 08/21/16 09:29 Magnesium Oxide (Mag-Ox Tab) 400 mg QAM PO 07/24/16 09:00 08/23/16 08:59 07/29/16 09:39 400 MG Lab Results Last 24 Hrs: 07/21/16 17:50 Red Blood Count 4.67, Mean Corpuscular Volume 89.1, Mean Corpuscular Hemoglobin 30.2, Mean Corpuscular Hemoglobin Concent 33.9, Mean Platelet Volume 9.6, Neutrophils (%) (Auto) 86.8, Lymphocytes (%) (Auto) 8.4, Monocytes (%) (Auto) 4.2, Eosinophils (%) (Auto) 0.2, Basophils (%) (Auto) 0.2, Neutrophils # (Auto) 11.22, Lymphocytes # (Auto) 1.09, Monocytes # (Auto) 0.54, Eosinophils # (Auto) 0.02, Basophils # (Auto) 0.03 07/21/16 17:50 Test 07/21/16 17:50 07/21/16 17:52 07/21/16 17:55 White Blood Count 12.92 K/uL (4.8-10.8) Red Blood Count 4.67 M/uL (4.2-5.4) Hemoglobin 14.1 g/dL (12.0-16.0) Hematocrit 41.6 % (37-47) Mean Corpuscular Volume 89.1 fL (80-100) Mean Corpuscular Hemoglobin 30.2 pg (25-34) Mean Corpuscular Hemoglobin Concent 33.9 g/dl (32-36) Platelet Count 307 K/uL (130-400) Mean Platelet Volume 9.6 fL (7.4-10.4) Neutrophils (%) (Auto) 86.8 % Lymphocytes (%) (Auto) 8.4 % Monocytes (%) (Auto) 4.2 % Eosinophils (%) (Auto) 0.2 % Basophils (%) (Auto) 0.2 % Neutrophils # (Auto) 11.22 K/uL (1.4-6.5) Lymphocytes # (Auto) 1.09 K/uL (1.2-3.4) Monocytes # (Auto) 0.54 K/uL (0.11-0.59) Eosinophils # (Auto) 0.02 K/uL (0-0.5) Basophils # (Auto) 0.03 K/uL (0-0.2) RDW Standard Deviation 43.6 fL (36.4-46.3) RDW Coefficient of Variation 13.5 % (11.5-14.5) Immature Granulocyte % (Auto) 0.2 % Immature Granulocyte # (Auto) 0.02 K/uL (0.00-0.02) Anion Gap 11.0 mmol/L (3-11) Est Creatinine Clear Calc Drug Dose 102.2 ml/min Estimated GFR () 93.3 Estimated GFR (Non- 80.5 BUN/Creatinine Ratio 13.8 (10-20) Osmolality 290 mOsm/kg (280-300) Calcium Level 8.5 mg/dl (8.5-10.1) Total Bilirubin 0.7 mg/dl (0.2-1) Direct Bilirubin 0.1 mg/dl (0-0.2) Aspartate Amino Transf (AST/SGOT) 12 U/L (15-37) Alanine Aminotransferase (ALT/SGPT) 14 U/L (12-78) Alkaline Phosphatase 63 U/L (45-117) Total Creatine Kinase 34 U/L (26-192) Creatine Kinase MB < 0.5 ng/ml (0.5-3.6) Creatine Kinase MB Ratio (0-3.0) Troponin I < 0.015 ng/ml (0-0.045) Total Protein 7.9 gm/dl (6.4-8.2) Albumin 4.1 gm/dl (3.4-5.0) Lipase 124 U/L (73-393) Human Chorionic Gonadotropin, Qual NEG (NEG) Salicylates Level < 1.7 mg/dl (2.8-20) Acetaminophen Level < 2 ug/ml (10-30) Ethyl Alcohol mg/dL < 3.0 mg/dl (0-3) Prothrombin Time 10.4 SECONDS (9.0-12.0) Prothromb Time International Ratio 1.0 (0.9-1.1) Activated Partial Thromboplast Time 25.8 SECONDS (21.0-31.0) Partial Thromboplastin Ratio 1.0 Urine Color YELLOW Urine Appearance CLEAR (CLEAR) Urine pH 6.0 (4.5-7.5) Urine Specific [place] 1.011 (1.000-1.030) Urine Protein NEG (NEG) Urine Glucose (UA) NEG (NEG) Urine Ketones NEG (NEG) Urine Occult Blood NEG (NEG) Urine Nitrite NEG (NEG) Urine Bilirubin NEG (NEG) Urine Urobilinogen NEG (NEG) Urine Leukocyte Esterase NEG (NEG) Urine Synthetic Stimulants see note Urine Opiates Screen NEG (NEG) Urine Methadone, Qualitative NEG (NEG) Urine Barbiturates NEG (NEG) Urine Phencyclidine (PCP) Level NEG (NEG) Ur Amphetamine/Methamphetamine NEG (NEG) MDMA (Ecstasy) Screen NEG (NEG) Urine Benzodiazepines Screen NEG (NEG) Urine Cocaine Metabolite NEG (NEG) Cannabinoids Comment see note Urine Synthetic Cannabinoids NEGATIVE (Negative) Ur Synthetic Cannabinoids Confirm (()) Urine Marijuana (THC) POS (NEG) Urine Marijuana (THC Carboxy Acid) 367 NG/ML (CUTOFF=5)
[2016-07-29 12:14] VITALS: BP 139/89; PULSE 94
[2016-07-29 16:27] VITALS: BP_SYST 115; BP_SYST 118; BP_SYST 133; BP_DIAS 71; BP_DIAS 86; BP_DIAS 91; PULSE 63; PULSE 68; PULSE 81
[2016-07-29] MEDS: PRAZOSIN HCL 1 MG CAP PO SCH (21:02)
[2016-07-29] MEDS: hydrOXYzine HCL 25 MG TAB PO PRN (22:47)
[2016-07-30] MEDS: hydrOXYzine HCL 25 MG TAB PO PRN (00:20)
[2016-07-30 06:42] VITALS: BP 113/76; PULSE 74; TEMP 36.5
[2016-07-30] MEDS: TRAMADOL HCL 50 MG TAB PO PRN (09:28)
[2016-07-30] MEDS: MAGNESIUM OXIDE 400 MG TAB PO SCH (09:28)
[2016-07-30] MEDS: BACLOFEN 10 MG TAB PO SCH (09:28)
[2016-07-30] MEDS ORDERED: PRZ1 PO (10:11)
[2016-07-30] MEDS ORDERED: MGNO400 PO (10:11)
[2016-07-30] MEDS ORDERED: ATR25 PO (10:11)
[2016-07-30] MEDS ORDERED: LRS10 PO (10:11)
--- NOTE | 2016-07-30 10:21 | Discharge Instructions ---
Discharge Information Report Includes Report will include the: Discharge Instructions & Summary Admission Admission Date / Time: Jul 22, 2016 at 00:25 Reason for Admission: Major Depressive Disorder-Recurrent Discharge Discharge Diagnosis / Problem: Major depressive disorder, borderline personality disorder, PTSD, Condition at Discharge: Good Discharge Goals Goal(s): Decrease discomfort, Increase independence, Prevent Disease Progression Activity Recommendations Activity Limitations: resume your previous activity . Instructions / Follow-Up Instructions / Follow-Up . SPECIAL CARE INSTRUCTIONS: 1. Follow through with your scheduled aftercare appointments. If unable to keep an appointment, please call to reschedule. 2. Take your medication only as prescribed. Medication should not be changed or stopped without the approval of your doctor. In the event of worsening symptoms or concerns about side effects, contact your doctor immediately. 3. Utilize new healthy coping skills, anger management skills, and stress management skills learned during your hospitalization. Journal feelings and process them with a support person. Identify stressors or situations that may result in relapse, deterioration or inappropriate behaviors and develop a plan to deal with those issues. 4. If your coping skills are ineffective and you are in crisis, contact your outpatient providers for direction. If unable to reach your providers, please call the CAN HELP LINE AT or go to the closest Emergency Room. 5. Avoid alcohol and un-prescribed drugs. 6. You have been provided with the Mental Health Advance Directives Pamphlet for your review. AFTERCARE APPOINTMENTS: * Please call your insurance company prior to your scheduled appointment to confirm your aftercare providers are covered. Take your insurance information to your appointments. . Discharge / Aftercare Planning Primary Care Physician: Name: Dr Weiss Date of Appointment: Sep 30, 2016 Time of Appointment: 6:50pm Psychiatrist: Name: Kee De Oliveira Date of Appointment: Aug 04, 2016 Time of Appointment: 1:00pm Appointment Notes: Hospital follow up visit will be 30 minutes Therapist: Name Of Therapist: Kortney Henning Appointment Comments: Mailbox is full no one else picking up to schedule appointment Architectural Drafting Instructor: Name: sadaf Neurologist: Name: Dr. Bacon Phone Number: [phone] Date of Appointment: Aug 20, 2016 Time of Appointment: 210pm Appointment Notes: . Specialist: Name: [facility] Phone Number: [phone] Date of Appointment: Aug 12, 2016 Time of Appointment: 2:20 pm . Follow-Up Care Plan for Follow-Up Care: Close follow up with OP providers, appts made Current Hospital Diet Patient's current hospital diet: Regular Diet Discharge Diet Recommended Diet: Regular Diet Procedures Procedures Performed: No Pending Studies Pending Studies at Discharge: No Medical Emergencies . Who to Call and When: Medical Emergencies: For questions or emergencies related to your hospital stay, please contact the Inpatient Behavioral Health Unit at [phone]. A streetsweeper operator is on-call 16/02 for the Behavioral Health Unit for emergencies At any time you feel your situation is an emergency, you may also call 911 immediately. . Non-Emergent Contact Non-Emergency issues call your: Primary Care Provider, Therapist Advance Directives Existing Advance Directive: No Do You Have an Existing Mental: No Existing Living Will: No Existing Power of Patient Registration Rep: No Discharge Summary Admission HPI Per the Admitting provider: Please see attached H&P Hospital Course (1) Major depressive disorder, recurrent severe without psychotic features 07/23 - Q 15 min checks for safety - Encourage participation in group and individual counseling - Obtain OP records from [place] and from her therapist - Recommend family meeting with those with whom she lives. - Patient currently refusing a trial of ADM's - Coordinate aftercare with current providers - Assist the patient to learn and utilize healthy coping strategies - Safety plan 07/24 - Meeting with boyfriendebbie Marinelli yesterday - Assist the patient to improve her emotional vocabulary and willing to express her emotions assertively 07/26/16 patient continues to report depressed mood and SI based on her pain she continues to decline medications for depression and anxiety, but is open to CBT, will attempt to engage her in routine use of ABC worksheets 07/27/16 - again reinforced if her goal is to learn how to manage with her pain, and she declines medications, resistance to engage in formal CBT using the ABC "thought record" worksheets, asking her to do 2 today 07/28/16 - Needs frequent reinforcement of goals of hospitalization and what might actually be accomplished (safety plan and coping skills for living with chronic pain, not cessation of pain). - Safety plan: Boyfriend confirmed no weapons in home, someone else should keep all meds locked and dispense to her so she doesn't have access to a large amount of pills. (2) Chronic post-traumatic stress disorder (PTSD) 07/23/16 - Encourage healthy coping strategies - Individual and group therapies 07/26/16 continue as above, again work on CBT with ABC sheets for mood, perhaps at times PTSD topics will be touched on at patient's leading 07/27/16 as above 07/29/16 - Recommned patient explore EMDR therapy (3) KEN (generalized anxiety disorder) 07/23 and continuing - Ativan DC'd s/p OD and will need to coordinate use with OP provider - Assist the patient to learn and utilize healthy coping strategies - Vistaril prn for anxiety or sleep - Encourage mindfulness, deep breathing, relaxation and exercise 07/29/16 - Encourage patient to be grounded in the present, and focused on current coping strategies (4) Panic disorder with agoraphobia 07/23 and continuing - see interventions for KEN (5) Borderline personality disorder 07/23 and continuing - Be consistent in all boundaries - Assist the patient to have good boundaries with peers - Encourage healthy coping strategies, and discourage dysfunctional ones - Coordinate with OP therapist (consider DBT group at [facility] if elligible and she can travel that distance) (6) Cannabis abuse 07/23 and continuing - Recommend abstinence - Educate about the negative impact of substances to mood (7) Chronic pain Patient has declined further psychotropic trials of medication that may impact pain She has been seen by pain management and been given trial injections indicating that she is a candidate for outpatient botox She has stated desire to learn how to use CBT to cope with her pain but then has not used the exercises/techniques offered to her She has known behavioral strategies that help her pain (TENS, heat application, massage and distraction and routine use of her tramadol) but also has not used those either. Encourage her to use these strategies Encouraged her to take her tramadol consistently. Consider referral to Clinical Health Psychology at [facility] if patient can travel that distance for psychological plan for living with chronic pain. Risk Factors Assessment : Yes /single/: Yes Higher / Fall in social status: No Access to guns: No Health problems: Yes Mental Health Diagnoses: Yes Substance use disorders: Yes Previous attempt: Yes Previous psychiatric stay: Yes Hopelessness: Yes Smoker: No Protective Factors Assessment Mandaeism beliefs: No : No Responsible for young children: Yes Employed: No Stable relationships: No Supportive family: No Good rapport with provider: Yes Day of Discharge Assessment COURSE OF HOSPITALIZATION: During the patient's 8 day stay, the patient refused the addition of an antidepressant for her mood and anxiety saying that she's had many trials in the past that were ineffective. She was continued on prazosin for nightmares and other medical medications. Vistaril was used when necessary for anxiety. The patient had a somewhat difficult course, continuing to state that she had conditional suicidal ideation if her pain was not well managed. She had consults with both pain management and neuro. She received trigger point injections from pain management here in the hospital which she said were less than effective. It was recommended she pursue Botox injections as an outpatient which she has agreed to do and appointment has been made. She had difficult relations with her boyfriend 10, frequently calling him in panic. She was quite dramatic, in the context of her borderline personality disorder , and shows to communicate her needs in non-assertive ways. At one point she reported a fall which was not witnessed and could not be supported by the facts (said she slipped on water, no water on the floor, no water on her clothing, no evidence of injury) and was encouraged to use healthier communication styles to get her messages across. She was able to agree that she is somewhat impulsive in the context of her emotions and needed to learn to communicate using her words rather than behaviors. She confirmed throughout her stay that her problems are all long-term, including her chronic PTSD, chronic panic, chronic conditional suicidal ideation. These were not conditions that were amenable to a short-term hospitalization and it was recommended she engage in long-term outpatient treatment. She was somewhat resistant to discharge, feeling that the chaos at home was something she could not tolerate. Family meeting will be held with her boyfriend Yves with whom she lives, this afternoon. DAY OF DISCHARGE ASSESSMENT: The patient says that her mood is good and rated 7 out of 10 with 10 being the best. She denies suicidal ideation. She is proud of herself that she was able to "keep it together" when her daughter had a medical emergency requiring an ER visit. She is in good behavioral control today, can identify coping strategies to deal with extreme emotions. She has prompt follow-up appointments with all of her providers. The patient is accepting of discharge today after her family meeting with him this afternoon. Today the patient is casually and appropriately dressed and groomed. Her gait and station are within normal limits, without limp or any evidence of pain. Eye contact is good. Affect is smiling. Speech is of normal rate volume and tone. Thoughts are organized and goal directed and without evidence of thought disorder. Recent and remote memory are intact per conversation. Intelligence is estimated to be average. Insight and judgment are improved over admission. Laboratory 07/21/16 17:50 Red Blood Count 4.67, Mean Corpuscular Volume 89.1, Mean Corpuscular Hemoglobin 30.2, Mean Corpuscular Hemoglobin Concent 33.9, Mean Platelet Volume 9.6, Neutrophils (%) (Auto) 86.8, Lymphocytes (%) (Auto) 8.4, Monocytes (%) (Auto) 4.2, Eosinophils (%) (Auto) 0.2, Basophils (%) (Auto) 0.2, Neutrophils # (Auto) 11.22, Lymphocytes # (Auto) 1.09, Monocytes # (Auto) 0.54, Eosinophils # (Auto) 0.02, Basophils # (Auto) 0.03 07/21/16 17:50 Test 07/21/16 17:50 07/21/16 17:52 07/21/16 17:55 White Blood Count 12.92 K/uL (4.8-10.8) Red Blood Count 4.67 M/uL (4.2-5.4) Hemoglobin 14.1 g/dL (12.0-16.0) Hematocrit 41.6 % (37-47) Mean Corpuscular Volume 89.1 fL (80-100) Mean Corpuscular Hemoglobin 30.2 pg (25-34) Mean Corpuscular Hemoglobin Concent 33.9 g/dl (32-36) Platelet Count 307 K/uL (130-400) Mean Platelet Volume 9.6 fL (7.4-10.4) Neutrophils (%) (Auto) 86.8 % Lymphocytes (%) (Auto) 8.4 % Monocytes (%) (Auto) 4.2 % Eosinophils (%) (Auto) 0.2 % Basophils (%) (Auto) 0.2 % Neutrophils # (Auto) 11.22 K/uL (1.4-6.5) Lymphocytes # (Auto) 1.09 K/uL (1.2-3.4) Monocytes # (Auto) 0.54 K/uL (0.11-0.59) Eosinophils # (Auto) 0.02 K/uL (0-0.5) Basophils # (Auto) 0.03 K/uL (0-0.2) RDW Standard Deviation 43.6 fL (36.4-46.3) RDW Coefficient of Variation 13.5 % (11.5-14.5) Immature Granulocyte % (Auto) 0.2 % Immature Granulocyte # (Auto) 0.02 K/uL (0.00-0.02) Anion Gap 11.0 mmol/L (3-11) Est Creatinine Clear Calc Drug Dose 102.2 ml/min Estimated GFR () 93.3 Estimated GFR (Non- 80.5 BUN/Creatinine Ratio 13.8 (10-20) Osmolality 290 mOsm/kg (280-300) Calcium Level 8.5 mg/dl (8.5-10.1) Total Bilirubin 0.7 mg/dl (0.2-1) Direct Bilirubin 0.1 mg/dl (0-0.2) Aspartate Amino Transf (AST/SGOT) 12 U/L (15-37) Alanine Aminotransferase (ALT/SGPT) 14 U/L (12-78) Alkaline Phosphatase 63 U/L (45-117) Total Creatine Kinase 34 U/L (26-192) Creatine Kinase MB < 0.5 ng/ml (0.5-3.6) Creatine Kinase MB Ratio (0-3.0) Troponin I < 0.015 ng/ml (0-0.045) Total Protein 7.9 gm/dl (6.4-8.2) Albumin 4.1 gm/dl (3.4-5.0) Lipase 124 U/L (73-393) Human Chorionic Gonadotropin, Qual NEG (NEG) Salicylates Level < 1.7 mg/dl (2.8-20) Acetaminophen Level < 2 ug/ml (10-30) Ethyl Alcohol mg/dL < 3.0 mg/dl (0-3) Prothrombin Time 10.4 SECONDS (9.0-12.0) Prothromb Time International Ratio 1.0 (0.9-1.1) Activated Partial Thromboplast Time 25.8 SECONDS (21.0-31.0) Partial Thromboplastin Ratio 1.0 Urine Color YELLOW Urine Appearance CLEAR (CLEAR) Urine pH 6.0 (4.5-7.5) Urine Specific [place] 1.011 (1.000-1.030) Urine Protein NEG (NEG) Urine Glucose (UA) NEG (NEG) Urine Ketones NEG (NEG) Urine Occult Blood NEG (NEG) Urine Nitrite NEG (NEG) Urine Bilirubin NEG (NEG) Urine Urobilinogen NEG (NEG) Urine Leukocyte Esterase NEG (NEG) Urine Synthetic Stimulants see note Urine Opiates Screen NEG (NEG) Urine Methadone, Qualitative NEG (NEG) Urine Barbiturates NEG (NEG) Urine Phencyclidine (PCP) Level NEG (NEG) Ur Amphetamine/Methamphetamine NEG (NEG) MDMA (Ecstasy) Screen NEG (NEG) Urine Benzodiazepines Screen NEG (NEG) Urine Cocaine Metabolite NEG (NEG) Cannabinoids Comment see note Urine Synthetic Cannabinoids NEGATIVE (Negative) Ur Synthetic Cannabinoids Confirm (()) Urine Marijuana (THC) POS (NEG) Urine Marijuana (THC Carboxy Acid) 367 NG/ML (CUTOFF=5) Total Time Total Time Spent (min): Greater than 30 minutes Total Time Included: examination of the patient, discharge planning, medication reconciliation, communication with other providers Tobacco Cessation at Discharge FDA approved Prescription: non-smoker
--- NOTE | 2016-07-30 10:32 | Psychiatric Progress Notes ---
Psychiatric Progress Note Date of Service Jul 30, 2016. Notes Spoke with Gabrielle MOTTA at [facility], by phone to discuss DC of ativan on which patient attempted to OD. She is in agreement with this and notes a policy not to prescribe meds that people have overdosed on. I informed her of boyfriend's concern about this as well.
[2016-08-28] MEDS ORDERED: HYDR-3126 PO (08:28)
[2016-09-18] MEDS ORDERED: ASPI81TA28 PO (12:23)
[2017-03-12] MEDS ORDERED: DULO-24 PO (14:09)
[2017-04-28] MEDS ORDERED: ZNTT/150 PO (15:14)
[2017-07-02] MEDS ORDERED: CYAN100T PO (15:08)
== END 2016-07-30 13:45 | disposition home or self-care (01) | DRG 885 ==
LOC: EDBD 17:13 → C.EDB 17:16 → C.MHU 07-22 00:25
PROVIDERS: ADMIT Psychiatry & Neurology Psychiatry; ATTEND Psychiatry & Neurology Psychiatry
PROC: 3E0T3BZ Introduction of Anesthetic Agent into Peripheral Nerves and Plexi, Percutaneous Approach (ICD-10-PCS; principal; 2016-07-23)
DX: F33.2 Major depressive disorder, recurrent severe without psychotic features (principal); R51 Headache; E66.9 Obesity, unspecified; Z68.33 Body mass index [BMI] 33.0-33.9, adult; I10 Essential (primary) hypertension; F41.1 Generalized anxiety disorder; F41.0 Panic disorder [episodic paroxysmal anxiety]; F43.10 Post-traumatic stress disorder, unspecified; G89.29 Other chronic pain; Z86.718 Personal history of other venous thrombosis and embolism; F60.3 Borderline personality disorder; F12.10 Cannabis abuse, uncomplicated

== ENCOUNTER 2016-08-04 14:33 | Emergency (ER) | payer OTHER ==
[~2016-08-04 14:33] MED LIST changes: +ATR25 PO; -ATV5X PO; -HYDR-3785 PO; +LRS10 PO; +MGNO400 PO; +PRLSR20 PO; +RANI150T3 PO; -RBX750 PO
[2016-08-04 14:45] VITALS: TEMP 36.4; Ht 172.7 cm
[2016-08-04] MEDS ORDERED: SODIUM CHLORIDE 0.9% 1000ML 1,000 ML IV STA (15:17)
[2016-08-04] MEDS ORDERED: KETOROLAC TROMETHAMINE 30 MG/ML VIAL IV STA (15:17)
[2016-08-04] MEDS ORDERED: ONDANSETRON INJ 2 MG/ML 2 ML VIAL IV STA (15:17)
[2016-08-04 15:36] LABS: BASO % 0.3 %; BASO ABS # 0.03 K/uL (0-0.2); COMPLETE YES; EOS % 0.3 %; HEMATOCRIT 40.7 % (37-47); IG% 0.2 %; LYMPH % 19.8 %; LYMPH ABS # 1.85 K/uL (1.2-3.4); MEAN CELL VOLUME 89.3 fL (80-100); MEAN CORPUSCULAR HGB CONC 33.7 g/dl (32-36); MEAN PLATELET VOLUME 10.7 fL (7.4-10.4); MONO % 5.8 %; NEUT % 73.6 %; PLATELET COUNT 228 K/uL (130-400); RED BLOOD COUNT 4.56 M/uL (4.2-5.4); WHITE BLOOD COUNT 9.35 K/uL (4.8-10.8)
[2016-08-04 15:48] LABS: ALT/SGPT 17 U/L (12-78); AST/SGOT 13 U/L (15-37); BLOOD UREA NITROGEN 5 mg/dl (7-18); CALCIUM 8.7 mg/dl (8.5-10.1); CARBON DIOXIDE 28 mmol/L (21-32); CHLORIDE 103 mmol/L (98-107); CREATININE 0.88 mg/dl (0.60-1.20); GLUCOSE 94 mg/dl (70-99); POTASSIUM 3.8 mmol/L (3.5-5.1); SODIUM 141 mmol/L (136-145)
[2016-08-04 15:51] LABS: ALB/GLOB RATIO 1.2 (0.9-2); ALKALINE PHOSPHATASE 68 U/L (45-117)
[2016-08-04 16:25] LABS: MANUAL MICROSCOPIC REQUIRED? NO; REVIEW REQ? NO; URINE APPEARANCE CLEAR (CLEAR); URINE BILIRUBIN NEG (NEG); URINE COLOR RED; URINE EPITHELIAL CELL AUTO >30 /lpf (0-5); URINE NITRITE NEG (NEG); URINE PH 6.5 (4.5-7.5); URINE SPECIFIC GRAVITY 1.008 (1.000-1.030); UROBILINOGEN NEG (NEG)
--- NOTE | 2016-08-04 16:48 | DIAGNOSTIC IMAGING REPORT ---
ULTRASOUND OF THE PELVIS CLINICAL HISTORY: Pelvic pain. COMPARISON STUDY: Pelvic CT dated 10/12/2012. TECHNIQUE: Real-time, grayscale, and color flow sonography of the pelvis is performed both transabdominally and endovaginally. Images are reviewed in the transverse and longitudinal planes. FINDINGS: Uterus: The retroverted uterus is normal in size and echotexture, measuring 9.2 x 4.7 x 5.8 cm. Small nabothian cysts are incidentally noted in the cervix. Endometrium: The endometrium is normal in appearance, and the endometrial stripe is normal in thickness measuring up to 0.7 cm. Ovaries: The ovaries are normal in size and morphology. The right ovary measures 3.1 x 1.7 x 2.2 cm and the left ovary measures 2.9 x 1.5 x 2.1 cm. Small follicles are present bilaterally. Normal Doppler waveforms are shown within both ovaries. Pelvis: There is no free fluid in the cul-de-sac. No concerning adnexal lesion is seen. IMPRESSION: No acute sonographic abnormality is identified in the pelvis. Electronically signed by: Hira Stokes M.D. 08/04/2016 4:46 PM Dictated Date/Time: 08/04/2016 4:45 PM
--- NOTE | 2016-08-04 17:31 | EMERGENCY ROOM VISIT NOTE ---
History First contact with patient: 15:04 Chief Complaint: ABDOMINAL PAIN Stated Complaint: ABD/ OVARY PAIN AND BURNING, PRESSURE, NAUSEA AND Nursing Triage Summary: Pt reports sharp pain in abd. "A clump of blood clots came out of me. I have my period. I'm pretty sure my ovary burst. There is a family hx. The pain is so bad that I have started to disconnect from reality." History of Present Illness Patient is a 40-year-old white female with extensive past medical history including multiple psychiatric diagnoses, fibromyalgia, migraine disorder, chronic pain syndrome, polycystic ovarian syndrome, among others who presents emergency department for evaluation of pelvic pain. Patient states that she started her menstrual cycle about 2-3 days ago. She states that she woke up with left-sided pelvic pain this morning. She states that she was doing " Lamaze breathing" in bed to help work through the pain. She got up to use the bathroom and states that she passed a large clot, roughly the "size of her fist." She states that she felt a little dizzy, lightheaded and near syncopal after this, and laid back down. She does have a history of orthostasis and is on prazosin. She states that she was nauseous and had dry heaves throughout the day. A couple of hours ago, she was riding in the car, when she noted pain starting on the right side. She states that she "felt a cyst rupture" while she was in the car. She now notes pain radiating across her entire lower abdomen into the epigastric area. She did vomit 1. She does have a history of PCOS an ovarian cyst. She took her regular medications today, including tramadol, which did help with her pain slightly. She rates her discomfort a 10/ 10 presently. She denies that she could be , but does report that she is sexually active. She was was [facility] and reports that she had a negative test at that time. Review of Systems Review of systems as per HPI. All other systems reviewed were negative. 10 systems reviewed. 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 See Problem List. Patient was recently hospitalized on our inpatient psychiatric unit, and this admission was reviewed. Family History FH: HTN (hypertension) FH: diabetes mellitus Personality disorder Social History Smoking Status: Never Smoker Alcohol Use: none Drug Use: none Marital Status: in relationship Housing Status: lives with family Current/Historical Medications Scheduled Baclofen (Baclofen), 10 MG PO TID Cholecalciferol (Vitamin D), 2,000 INTER.UNIT PO DAILY Loperamide Hcl (Imodium), 2 TABS PO PRN Magnesium Oxide (Magnesium-Oxide), 400 MG PO QAM Multivitamin (Multivitamin), 1 TAB PO DAILY Omeprazole (Prilosec), 20 MG PO DAILY Prazosin HCl (Prazosin HCl), 1 MG PO HS Ranitidine Hcl (Zantac), 150 MG PO DAILY Scheduled PRN Hydroxyzine HCl (Hydroxyzine HCl), 25 MG PO Q4H PRN for Anxiety Ondansetron Hcl (Zofran), 4 MG PO UD PRN for Nausea Tramadol Hcl (Ultram), 50 MG PO Q6H PRN for Pain Allergies Coded Allergies: Morris (Verified Allergy, Severe, VOMITING,ITCHY TONGUE,FACE SWELLING, 08/04) Macadamia Nut Oil (Verified Allergy, Severe, RASH,VOMITING,ITCHY TONGUE, FACE SWELLING, 08/04/16) Valproic Acid (Verified Allergy, Severe, TONGUE SWELLING, 08/04/16) Amoxicillin (Verified Allergy, Intermediate, BREAKOUT, 08/04/16) Ciprofloxacin (Verified Allergy, Intermediate, WELTS/SWELLING, 08/04/16) Clavulanic Acid (Verified Allergy, Intermediate, BREAKOUT, 08/04/16) Pineapple (Verified Allergy, Intermediate, VOMITING, ITCHY TONGUE, 08/04/16) Iodine (Verified Adverse Reaction, Intermediate, VOMITING, 08/04/16) Erythromycin (Verified Adverse Reaction, Mild, NAUSEA, 08/04/16) Iodinated Contrast Media (Verified Adverse Reaction, Mild, VOMITING, ) Physical Exam Vital Signs Date Time Temp Pulse Resp B/P Pulse Ox O2 Delivery O2 Flow Rate FiO2 08/04/16 17:56 63 131/72 100 08/04/16 14:45 36.4 75 18 135/89 100 Room Air Physical Exam CONSTITUTIONAL: Patient is an overweight, anxious, dramatic 40-year-old white female who was awake and alert and laying on the gurney in no acute distress, despite reporting "pain worse than childbirth," her vital signs are stable, she is breathing heavily and holding an emesis bag. EYES: Pupils equal, round, reactive to light and accommodation. EOMs intact without nystagmus. Sclera are anicteric. ENT: Tympanic membranes intact, with normal landmarks. External canals are clear. Oral and nasopharynx are clear. Mucous membranes are moist, no lesions , tongue and gums appear normal. NECK: No bruits auscultated. Supple without lymphadenopathy. No thyromegaly. No meningeal signs. Full active range of motion without discomfort. CARDIOVASCULAR: Regular rate and rhythm, with normal S1 and S2, no murmur or gallop or rub is heard. No carotid bruits auscultated. No JVD. Peripheral pulses easy to palpable. RESPIRATORY: Breath sounds equal and clear to auscultation without wheezes, rales, or rhonchi heard. Full and equal chest expansion without accessory muscle use or retractions. GI: Bowel sounds are present. Multiple well-healed surgical scars are noted. Abdomen is soft, nondistended, no localized discomfort to palpation. No guarding, rebound or rigidity. No organomegaly. No pulsatile masses. MUSCULOSKELETAL: Full range of motion of extremities x 4 with good strength. No cyanosis, edema, joint tenderness or swelling. No deformity. INTEGUMENTARY: No lesions or rash, normal skin turgor. NEUROLOGICAL: Alert, oriented, and cooperative. Cranial nerves, sensation and strength grossly intact. Pupils round, equal, and react to light, EOMs are full. LYMPH: No lymphadenopathy. Medical Decision & Procedures ER Provider Diagnostic Interpretation: ULTRASOUND OF THE PELVIS CLINICAL HISTORY: Pelvic pain. COMPARISON STUDY: Pelvic CT dated 10/12/2012. TECHNIQUE: Real-time, grayscale, and color flow sonography of the pelvis is performed both transabdominally and endovaginally. Images are reviewed in the transverse and longitudinal planes. FINDINGS: Uterus: The retroverted uterus is normal in size and echotexture, measuring 9.2 x 4.7 x 5.8 cm. Small nabothian cysts are incidentally noted in the cervix. Endometrium: The endometrium is normal in appearance, and the endometrial stripe is normal in thickness measuring up to 0.7 cm. Ovaries: The ovaries are normal in size and morphology. The right ovary measures 3.1 x 1.7 x 2.2 cm and the left ovary measures 2.9 x 1.5 x 2.1 cm. Small follicles are present bilaterally. Normal Doppler waveforms are shown within both ovaries. Pelvis: There is no free fluid in the cul-de-sac. No concerning adnexal lesion is seen. IMPRESSION: No acute sonographic abnormality is identified in the pelvis. Laboratory Results 08/04/16 15:00 Red Blood Count 4.56, Mean Corpuscular Volume 89.3, Mean Corpuscular Hemoglobin 30.0, Mean Corpuscular Hemoglobin Concent 33.7, Mean Platelet Volume 10.7, Neutrophils (%) (Auto) 73.6, Lymphocytes (%) (Auto) 19.8, Monocytes (%) (Auto) 5.8, Eosinophils (%) (Auto) 0.3, Basophils (%) (Auto) 0.3, Neutrophils # (Auto) 6.88, Lymphocytes # (Auto) 1.85, Monocytes # (Auto) 0.54, Eosinophils # (Auto) 0.03, Basophils # (Auto) 0.03 08/04/16 15:00 Test 08/04/16 15:00 White Blood Count 9.35 K/uL (4.8-10.8) Red Blood Count 4.56 M/uL (4.2-5.4) Hemoglobin 13.7 g/dL (12.0-16.0) Hematocrit 40.7 % (37-47) Mean Corpuscular Volume 89.3 fL (80-100) Mean Corpuscular Hemoglobin 30.0 pg (25-34) Mean Corpuscular Hemoglobin Concent 33.7 g/dl (32-36) Platelet Count 228 K/uL (130-400) Mean Platelet Volume 10.7 fL (7.4-10.4) Neutrophils (%) (Auto) 73.6 % Lymphocytes (%) (Auto) 19.8 % Monocytes (%) (Auto) 5.8 % Eosinophils (%) (Auto) 0.3 % Basophils (%) (Auto) 0.3 % Neutrophils # (Auto) 6.88 K/uL (1.4-6.5) Lymphocytes # (Auto) 1.85 K/uL (1.2-3.4) Monocytes # (Auto) 0.54 K/uL (0.11-0.59) Eosinophils # (Auto) 0.03 K/uL (0-0.5) Basophils # (Auto) 0.03 K/uL (0-0.2) RDW Standard Deviation 43.1 fL (36.4-46.3) RDW Coefficient of Variation 13.3 % (11.5-14.5) Immature Granulocyte % (Auto) 0.2 % Immature Granulocyte # (Auto) 0.02 K/uL (0.00-0.02) Urine Color RED Urine Appearance CLEAR (CLEAR) Urine pH 6.5 (4.5-7.5) Urine Specific [place] 1.008 (1.000-1.030) Urine Protein NEG (NEG) Urine Glucose (UA) NEG (NEG) Urine Ketones NEG (NEG) Urine Occult Blood 3+ (NEG) Urine Nitrite NEG (NEG) Urine Bilirubin NEG (NEG) Urine Urobilinogen NEG (NEG) Urine Leukocyte Esterase TRACE (NEG) Urine WBC (Auto) 1-5 /hpf (0-5) Urine RBC (Auto) >30 /hpf (0-4) Urine Hyaline Casts (Auto) 0 /lpf (0-5) Urine Epithelial Cells (Auto) >30 /lpf (0-5) Urine Bacteria (Auto) NEG (NEG) Urine Test NEG (NEG) Anion Gap 10.0 mmol/L (3-11) Estimated GFR () 94.6 Estimated GFR (Non- 81.6 BUN/Creatinine Ratio 6.0 (10-20) Calcium Level 8.7 mg/dl (8.5-10.1) Total Bilirubin 0.7 mg/dl (0.2-1) Aspartate Amino Transf (AST/SGOT) 13 U/L (15-37) Alanine Aminotransferase (ALT/SGPT) 17 U/L (12-78) Alkaline Phosphatase 68 U/L (45-117) Total Protein 7.2 gm/dl (6.4-8.2) Albumin 3.9 gm/dl (3.4-5.0) Globulin 3.3 gm/dl (2.5-4.0) Albumin/Globulin Ratio 1.2 (0.9-2) Lipase 129 U/L (73-393) Human Chorionic Gonadotropin, Quant < 1 mIU/mL Medications Administered Medications (Trade) Dose Ordered Sig/Anil Route Start Time Stop Time Status Last Admin Dose Admin Ketorolac Tromethamine (Toradol Inj) 30 mg NOW STAT IV 08/04/16 15:17 08/04/16 15:24 DC 08/04/16 15:37 30 MG Ondansetron HCl 4 mg 4 mg NOW STAT IV 08/04/16 15:17 08/04/16 15:24 DC 08/04/16 15:36 4 MG Sodium Chloride (Nss 1000ml) 1,000 ml @ 999 mls/hr Q1H1M STAT IV 08/04/16 15:17 08/04/16 16:18 DC 08/04/16 15:36 999 MLS/HR ED Course The patient was seen and evaluated as above. Her old records are reviewed, including her recent psychiatric hospitalization, at which point, her psychiatric providers did express concern regarding her chronic pain syndromes. Per their documentation, given her history of heroin addiction and high risk for abuse/overdosing, opioids were avoided during that hospitalization. On examination, particularly once the patient was distracted and conversing, her abdomen was examined and was completely benign. IV access was obtained and laboratory studies were collected. She was medicated with Toradol 30 mg and Zofran 4 mg IV. She was hydrated with normal saline solution. She was ordered a heating pad, however it does not appear that she received this during her ED stay. Laboratory studies were collected including CBC with differential, CMP, lipase, quantitative hCG and urinalysis. Given her history of ovarian cyst, and her pelvic pain with associated menses, pelvic ultrasound was performed. Patient's laboratory studies did not demonstrate any leukocytosis, anemia, electrolyte or liver function abnormalities. Lipase is normal. Her hCG level is less than 1. Urinalysis demonstrates contamination from her menses with 3+ occult blood and greater than 30 RBCs and greater than 30 epithelial cells. No bacteria, nitrates or white blood cells to suspect infection. Pelvic ultrasound demonstrated an endometrial stripe measuring 0.7 cm and normal in thickness. Ovaries were normal in size and morphology with small follicles present bilaterally. No evidence for torsion. There is no free pelvic fluid or concerning adnexal lesions. The patient was reassessed. All laboratory and diagnostic imaging studies were reviewed with her and her male friend. She continued to report severe pain, but was observed laying on the gurney in no acute distress, playing on her cell phone. She is hemodynamically stable, not demonstrating any evidence for hypotension, volume depletion or anemia. She is not . She does not have evidence for ruptured ovarian cyst or ovarian torsion. Her symptoms may be related to her menses. Differential diagnoses entertained included dysmenorrhea, ovarian cyst, ruptured ovarian cyst, ovarian torsion, , ectopic , UTI, pyelonephritis, cystitis, renal colic, among others. The patient was encouraged to use heat, continue her tramadol and use ibuprofen for discomfort. She was advised to follow-up with her [facility] for further care and management. She was educated on the worrisome signs or symptoms for which she should return to the emergency department. The patient rated her discomfort a 0/10 at discharge. Medical Decision See ED Course. Impression Primary Impression: Pelvic pain Additional Impression: Dysmenorrhea Departure Information Referrals Giorgio Weiss D.O. (PCP) Patient Instructions A Signature Page Additional Instructions DO NOT drive, drink alcohol, operate machinery, or perform dangerous activities today. You were given medications in the ER that can affect your ability to safely function or operate a vehicle. Ibuprofen(Motrin, Advil) may be used for fever or pain. Use 800 mg 3 times daily with food. Avoid using more than 2400mg in a 24 hour period. Do not use 2400mg per day for more than three consecutive days without physician direction. Prolonged inappropriate use can lead to stomach upset or ulcers. This is available over the counter and typically comes in 200mg tablets. Acetaminophen(Tylenol) may be used for fever or pain. Use 1000mg every eight hours as needed. Avoid using more than 3000mg in a 24 hour period. This is available over the counter. Rest and drink plenty of fluids as tolerated. Slow sips of water or sports drinks are recommended instead of large amounts all at once. Continue current medications. Once your stomach is settled start with a clear liquid diet (jello, soup broth, etc.) and then advance as tolerated. You should avoid full, heavy meals for about 24 hrs from the time your symptoms resolved. Return to the ER immediately for worsening or persistent abdominal pain, vomiting, fevers, chest pains, difficulty breathing, heavier bleeding, worsening of your condition, or as needed. Follow up with your program lead recheck of your current condition.
[2016-08-04 17:56] VITALS: BP 131/72; PULSE 63; O2SAT 100
[2016-08-28] MEDS ORDERED: HYDR-3126 PO (08:28)
[2016-09-18] MEDS ORDERED: ASPI81TA28 PO (12:23)
[2017-03-12] MEDS ORDERED: DULO-24 PO (14:09)
[2017-04-28] MEDS ORDERED: ZNTT/150 PO (15:14)
== END 2016-08-04 17:56 | disposition home or self-care (01) ==
LOC: C.EDB 14:37 → C.EDA 17:56
DX: R10.2 Pelvic and perineal pain (principal); N94.6 Dysmenorrhea, unspecified; M79.7 Fibromyalgia; E28.2 Polycystic ovarian syndrome; I95.1 Orthostatic hypotension; F41.9 Anxiety disorder, unspecified; F43.12 Post-traumatic stress disorder, chronic; G89.4 Chronic pain syndrome; G43.909 Migraine, unspecified, not intractable, without status migrainosus; E88.81 Metabolic syndrome and other insulin resistance; Z86.718 Personal history of other venous thrombosis and embolism

== ENCOUNTER 2016-09-16 01:33 | Observation (INO) | payer OTHER ==
[~2016-09-16] VITALS: Ht 172.7 cm; Wt 98.2 kg
[~2016-09-16 01:33] MED LIST changes: -ATR25 PO; +HYDR-3126 PO; -RANI150T3 PO
[2016-09-16] MEDS ORDERED: LORAZEPAM 2 MG/ML 1 ML VIAL ONE (01:45)
--- NOTE | 2016-09-16 02:01 | EMERGENCY ROOM VISIT NOTE ---
History Report prepared by Yeni: Farhana Lacy Under the Supervision of: Dr. Andria Rojas D.O. First contact with patient: 01:39 Chief Complaint: NEURO SYMPTOMS Stated Complaint: NEURO SYMPTOMS History of Present Illness The patient is a 40 year old female who presents to the Emergency Room with complaints of persistent neuro symptoms that began prior to arrival. The patient states that she had Botox on the 28 of August. She states that today she has noticed swelling to her legs, muscle tightness, weakness, and difficulty speaking. She states that she has a history of headaches that have caused similar symptoms in the past. The patient states that she lost the ability to speak for two months due to her previous headaches. She states that she follows with Dr. Bacon, Neurology. The patient states that she has been evaluated in the hospital in the past for her headaches. She notes left lower abdominal pain today. The patient states that she takes Baclofen and Ultram for her migraines, noting that she took both medications today. The patient additionally notes lip numbness and tongue numbness today. The patient explains that she has diffuse body pain. She also describes persistent weakness in her left arm and left leg which is also happened to her in the past with her migraines. Source of History: patient Onset: prior to arrival Position: other (global) Quality: other (neuro symptoms) Timing: other (persistent) Associated Symptoms: + numbness, + weakness Note: Associated Symptoms: muscle tightness, swelling to legs, difficulty speaking. Review of Systems See HPI for pertinent positives & negatives. A total of 10 systems reviewed and were otherwise negative. 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 (16) Hx-Venous Thrombosis&Embolism (17) Hypokalemia (18) Major depressive disorder, recurrent severe without psychotic features (19) Mood disorder (20) Other Forms Migraine W/O Intractable Migraine (21) Panic disorder with agoraphobia (22) past psych meds (23) Pleurisy (24) Polycystic Ovaries (25) PTSD (post-traumatic stress disorder) Family History FH: HTN (hypertension) FH: diabetes mellitus Personality disorder Social History Smoking Status: Never Smoker Alcohol Use: none Drug Use: none Marital Status: in relationship Housing Status: lives with family Current/Historical Medications Scheduled Baclofen (Baclofen), 10 MG PO TID Cholecalciferol (Vitamin D), 2,000 INTER.UNIT PO DAILY Hydroxyzine Hcl (Atarax), 50 MG PO HS Loperamide Hcl (Imodium), 2 TABS PO PRN Magnesium Oxide (Magnesium-Oxide), 400 MG PO QAM Multivitamin (Multivitamin), 1 TAB PO DAILY Omeprazole (Prilosec), 20 MG PO DAILY Prazosin HCl (Prazosin HCl), 1 MG PO HS Scheduled PRN Ondansetron Hcl (Zofran), 4 MG PO UD PRN for Nausea Tramadol Hcl (Ultram), 50 MG PO Q6H PRN for Pain Allergies Coded Allergies: [place] (Verified Allergy, Severe, VOMITING,ITCHY TONGUE,FACE SWELLING, ) Macadamia Nut Oil (Verified Allergy, Severe, RASH,VOMITING,ITCHY TONGUE, FACE SWELLING, 09/16/16) Valproic Acid (Verified Allergy, Severe, TONGUE SWELLING, 09/16/16) Amoxicillin (Verified Allergy, Intermediate, BREAKOUT, 09/16/16) Ciprofloxacin (Verified Allergy, Intermediate, WELTS/SWELLING, 09/16/16) Clavulanic Acid (Verified Allergy, Intermediate, BREAKOUT, 09/16/16) Pineapple (Verified Allergy, Intermediate, VOMITING, ITCHY TONGUE, 09/16/16 ) Iodine (Verified Adverse Reaction, Intermediate, VOMITING, 09/16/16) Erythromycin (Verified Adverse Reaction, Mild, NAUSEA, 09/16/16) Iodinated Contrast Media (Verified Adverse Reaction, Mild, VOMITING, ) Physical Exam Vital Signs Date Time Temp Pulse Resp B/P Pulse Ox O2 Delivery O2 Flow Rate FiO2 09/16/16 05:38 77 19 96 09/16/16 05:28 121/85 09/16/16 05:11 101 09/16/16 05:08 74 24 95 09/16/16 04:58 108/62 09/16/16 04:38 101 21 97 09/16/16 04:37 82 16 127/79 98 Room Air 09/16/16 04:34 127/79 09/16/16 04:08 102 23 97 09/16/16 03:58 121/73 09/16/16 03:38 79 22 93 09/16/16 03:28 100/66 09/16/16 03:08 80 29 92 09/16/16 03:03 80 23 93 09/16/16 02:58 92/67 09/16/16 02:33 71 94 09/16/16 02:29 132/77 09/16/16 02:03 81 17 96 09/16/16 01:58 125/85 09/16/16 01:44 87 09/16/16 01:35 129/91 09/16/16 01:34 98 Room Air 09/16/16 01:34 37.4 84 20 129/91 98 Room Air Physical Exam HEENT: Head - normocephalic and atraumatic. Pupils are equal, round, and reactive to light. Extraocular eye muscles are intact and sclera are anicteric. Ears - bilaterally patent canals with noninjected tympanic membranes and no evidence of hemotympanum. Nose - moist nasal mucosa without discharge. Mouth - moist buccal mucosa. Oropharynx is nonerythematous and there is no tonsillar exudate or edema noted. Neck: Supple; no JVD, nuchal rigidity, cervical lymphadenopathy. Heart: Regular rate and rhythm. There is a normal S1 and S2 with no murmurs, clicks, or gallops appreciated. Lungs: Clear to auscultation bilaterally with no wheezes, rales, or rhonchi. Abdomen: Soft, completely nontender, nondistended, with good bowel sounds. There are no palpable pulsatile masses or hepatosplenomegaly. There is no guarding, rigidity, or rebound noted. Extremities: No evidence of cyanosis, clubbing, or edema. There are easily palpable peripheral pulses. Neuro:The patient is awake and alert, oriented to day, time, and place. Gargled speech, pain with movement of left arm and leg and some weakness in that arm and leg. There are no cerebellar signs. Medical Decision & Procedures ER Provider Diagnostic Interpretation: CT results as stated below per my review and radiologist interpretation: CT Head: Comparison: 09/07/2015 No evidence of large territorial infarct, hemorrhage, mass or edema. The sinuses are patent. No acute osseous abnormality. Radiologist: Yevgeniy Box MD Study ready at 0436 and initial results transmitted [id number]. Laboratory Results 09/16/16 01:11 Red Blood Count 4.66, Mean Corpuscular Volume 87.1, Mean Corpuscular Hemoglobin 29.6, Mean Corpuscular Hemoglobin Concent 34.0, Mean Platelet Volume 10.2, Neutrophils (%) (Auto) 71.1, Lymphocytes (%) (Auto) 20.8, Monocytes (%) (Auto) 7.2, Eosinophils (%) (Auto) 0.4, Basophils (%) (Auto) 0.3, Neutrophils # (Auto) 6.36, Lymphocytes # (Auto) 1.87, Monocytes # (Auto) 0.65, Eosinophils # (Auto) 0.04, Basophils # (Auto) 0.03 09/16/16 01:11 Test 09/16/16 01:11 09/16/16 05:53 White Blood Count 8.97 K/uL (4.8-10.8) Red Blood Count 4.66 M/uL (4.2-5.4) Hemoglobin 13.8 g/dL (12.0-16.0) Hematocrit 40.6 % (37-47) Mean Corpuscular Volume 87.1 fL (80-100) Mean Corpuscular Hemoglobin 29.6 pg (25-34) Mean Corpuscular Hemoglobin Concent 34.0 g/dl (32-36) Platelet Count 247 K/uL (130-400) Mean Platelet Volume 10.2 fL (7.4-10.4) Neutrophils (%) (Auto) 71.1 % Lymphocytes (%) (Auto) 20.8 % Monocytes (%) (Auto) 7.2 % Eosinophils (%) (Auto) 0.4 % Basophils (%) (Auto) 0.3 % Neutrophils # (Auto) 6.36 K/uL (1.4-6.5) Lymphocytes # (Auto) 1.87 K/uL (1.2-3.4) Monocytes # (Auto) 0.65 K/uL (0.11-0.59) Eosinophils # (Auto) 0.04 K/uL (0-0.5) Basophils # (Auto) 0.03 K/uL (0-0.2) RDW Standard Deviation 43.2 fL (36.4-46.3) RDW Coefficient of Variation 13.7 % (11.5-14.5) Immature Granulocyte % (Auto) 0.2 % Immature Granulocyte # (Auto) 0.02 K/uL (0.00-0.02) Anion Gap 12.0 mmol/L (3-11) Est Creatinine Clear Calc Drug Dose 90.6 ml/min Estimated GFR () 81.0 Estimated GFR (Non- 69.9 BUN/Creatinine Ratio 9.9 (10-20) Calcium Level 8.7 mg/dl (8.5-10.1) Total Bilirubin 0.7 mg/dl (0.2-1) Aspartate Amino Transf (AST/SGOT) 17 U/L (15-37) Alanine Aminotransferase (ALT/SGPT) 26 U/L (12-78) Alkaline Phosphatase 70 U/L (45-117) Total Protein 7.7 gm/dl (6.4-8.2) Albumin 4.0 gm/dl (3.4-5.0) Globulin 3.7 gm/dl (2.5-4.0) Albumin/Globulin Ratio 1.1 (0.9-2) Chemistry Specimen Hemolysis Laboratory results per my review. Medications Administered Medications (Trade) Dose Ordered Sig/Anil Route Start Time Stop Time Status Last Admin Dose Admin Lorazepam (Ativan Inj) 2 mg STK-MED ONCE .ROUTE 09/16/16 01:45 09/16/16 01:47 DC 09/16/16 01:52 1 MG Procedure The patient was treated with 1 mg of Ativan Inj. ED Course 0145: Past medical records reviewed. The patient was evaluated in room B4B. A complete history and physical exam was performed. During the examination, the patient's speech has improved while I spoke to her. 0145: Ordered Ativan 1 mg IV. Again, I questioned the patient about her symptoms. She states that she has had this garbled speech and extremity weakness in the past associated with her headaches. 0230: I reevaluated the patient and she states that she is having diffuse body pain. I offered her something for her pain and she declined. 0315: I reevaluated the patient and she is sound asleep and hemodynamically stable. 0408: I reevaluated the patient and she was asleep. I woke the patient from sleep and she states that her pain is so severe, but continues to decline pain medications. The patient is insistent that Dr. Bacon knows her well and typically would recommend admission to the hospital for these episodes. She went on to explain that her symptoms are typically caused by the bones in her neck that shift, causing a lack of blood flow to the brain. The patient notes that her left arm and left leg are so weak. She states that she has been seeing a team of doctors since she was 8 years old that have much more experience with her medical history. The patient additionally notes concern for blood clots, stating that she had a previous DVT, but denies any anticoagulation therapy. Dr. Bacon will be consulted. I additionally did a cranial nerve evaluation at this time that was normal. She continues to exhibit weakness in the left arm and left leg With loss of sensation in that left arm and left leg. 0423: I discussed the patient's case with Dr. Bacon, Neurology. He states that he has no recollection of the patient. He recommends a CT scan and admission for her hemiplegic migraine. He also suggested considering steroid therapy. 0524: I discussed the patients case with Vicki Vásquez. He is going to evaluate the patient for further treatment. Medical Decision The patient is a 40 year old female who presents to the ED with neuro symptoms. Differential diagnosis includes migraine variant, exacerbation of chronic muscle pain and spasm, stroke, hemiplegic migraine. Labs: no leukocytosis stable H&H, normal renal function and glucose, normal LFTs. The patient has a long-standing history of chronic pain for which she follows with pain management. At this time, she is describing diffuse pain but declines wanting anything for her pain. The patient presents to ER with stiffening of her arms and legs, garbled speech, and left arm and leg weakness. The patient admits that none of the symptoms are brand-new for her but She states that she has not had an episode like this for the past 3 years. The patient received Ativan here in the emergency department which gave her significant muscle relaxation. She did sleep for a period of time here in the emergency department. On reevaluation, however, she still had weakness in her left arm and leg. She does have a history of hemiplegic migraines. This seems to be the cause again this time. The patient had a CT scan of the brain which was unremarkable. I discussed the case with the [facility] Hospitalist and they will evaluate for further management. Consults Time Called: [phone] Consulting Physician: Dr. Bacon, Neurology Returned Call: [phone] I discussed the patient's case with Dr. Bacon, Neurology. He states that he has no recollection of the patient. He recommends a CT scan and admission for her hemiplegic migraine. Additional Consults: Time Called: [phone] Consulted Physician: Vicki Vásquez Returned Call: [phone] Additional Comments: I discussed the patients case with Vicki Vásquez. He is going to evaluate the patient for further treatment. Impression Primary Impression: Hemiplegic migraine Scribe Attestation The scribe's documentation has been prepared under my direction and personally reviewed by me in its entirety. I confirm that the note above accurately reflects all work, treatment, procedures, and medical decision making performed by me. Departure Information Dispostion Being Evaluated By Hospitalist Referrals Giorgio Weiss D.O. (PCP) Patient Instructions [facility]
[2016-09-16 02:20] LABS: BASO % 0.3 %; BASO ABS # 0.03 K/uL (0-0.2); COMPLETE YES; EOS % 0.4 %; HEMATOCRIT 40.6 % (37-47); IG% 0.2 %; LYMPH % 20.8 %; LYMPH ABS # 1.87 K/uL (1.2-3.4); MEAN CELL VOLUME 87.1 fL (80-100); MEAN CORPUSCULAR HEMOGLOBIN 29.6 pg (25-34); MEAN PLATELET VOLUME 10.2 fL (7.4-10.4); MONO % 7.2 %; NEUT % 71.1 %; PLATELET COUNT 247 K/uL (130-400); RED BLOOD COUNT 4.66 M/uL (4.2-5.4); WHITE BLOOD COUNT 8.97 K/uL (4.8-10.8)
[2016-09-16 02:31] LABS: ALB/GLOB RATIO 1.1 (0.9-2); BUN/CREATININE RATIO 9.9 (10-20); CALCIUM 8.7 mg/dl (8.5-10.1); POTASSIUM 3.8 mmol/L (3.5-5.1)
[2016-09-16] MEDS ORDERED: KETOROLAC TROMETHAMINE 30 MG/ML VIAL ONE (06:06)
[2016-09-16] MEDS ORDERED: KETOROLAC TROMETHAMINE 30 MG/ML VIAL IV STA (06:07)
[2016-09-16] MEDS ORDERED: KETOROLAC TROMETHAMINE 30 MG/ML VIAL IV PRN (06:15)
[2016-09-16] MEDS ORDERED: ASPIRIN 324 MG CHEW PO STA (06:30)
--- NOTE | 2016-09-16 06:33 | DIAGNOSTIC IMAGING REPORT ---
CT HEAD WITHOUT CONTRAST (CT) CLINICAL HISTORY: Change in mental status. Stroke like symptoms. COMPARISON STUDY: 07/21/2016 TECHNIQUE: Axial CT of the brain is performed from the vertex to the skull base. IV contrast was not administered for this examination. CT DOSE: 537.48 mGy.cm FINDINGS: No intra or extra-axial mass lesions are visualized. There is no CT evidence of acute cortical infarction. There is no evidence of midline shift. There is no acute hemorrhage. No calvarial fractures are visualized. There is minor frontal lobe atrophy. There is no evidence of pathologic ventricular dilatation. There is no evidence of acute sinusitis IMPRESSION: No acute intracranial findings Electronically signed by: Kings Gonzáles M.D. 09/16/2016 6:31 AM Dictated Date/Time: 09/16/2016 6:30 AM
[2016-09-16] MEDS ORDERED: DEXAMETHASONE SOD INJ 10 MG/ML VIAL IV STA (06:36)
[2016-09-16] MEDS ORDERED: IV FLUIDS COMPLETED PRN (06:45)
[2016-09-16] MEDS ORDERED: NITROGLYCERIN 0.4 MG SL PER TAB CHARGE SL PRN (06:45)
[2016-09-16] MEDS ORDERED: ACETAMINOPHEN 325 MG TAB PO PRN (06:45)
[2016-09-16] MEDS ORDERED: PHARMACIST DISCHARGE MED REC CONSULT PRN (06:45)
[2016-09-16] MEDS ORDERED: LACTATED RINGER'S 1000ML 1,000 ML IV ONE (07:00)
[2016-09-16] MEDS ORDERED: IBUPROFEN 200 MG TAB PO PRN (07:00)
[2016-09-16] MEDS ORDERED: ONDANSETRON INJ 2 MG/ML 2 ML VIAL IV PRN (07:00)
[2016-09-16 07:27] LABS: CHOLESTEROL 160 mg/dl (0-200); CHOLESTEROL/HDL RATIO 4.3; HDL CHOLESTEROL 37 mg/dl; LDL CHOLESTEROL CALCULATED 113 mg/dl; TRIGLYCERIDES 51 mg/dl (0-150); VERY LOW DENSITY LIPOPROT CALC 10 mg/dl
--- NOTE | 2016-09-16 08:02 | HISTORY & PHYSICAL EXAMINATION ---
DATE OF ADMISSION: NOTICE TO RECEIVING REPUBLICAN/AGENCY This information is strictly Confidential and protected under [place] law. [place] law prohibits you from making any further disclosure of this information unless further disclosure is expressly permitted by the written consent of the person to whom it pertains or is authorized by law. A general authorization for the release of medical or other information is not sufficient for this purpose. Hospital accepts no responsibility if the information is made available to any other person, INCLUDING THE PATIENT. PRIMARY CARE PHYSICIAN: Dr. Weiss. Hx obtained form px and records. CHIEF COMPLAINT: worsening headache; weakness on the left side. HISTORY OF PRESENT ILLNESS: Medical history significant for chronic migraine, mood disorder, history of mini-strokes as per patient, DVT status post anticoagulation, hx seizures as per px. History of fibromyalgia as per records. [place] [facility] [place]. Patient was seen by Neurology for chronic headache symptoms during confinement. No further imaging needed. Full workup outpx for headaches. About 2 weeks ago patient had Botox injection at outpatient [facility] Pain management for migraine. Migraine headache worse after symptoms. Px admits to being very depressed because of intractable migraine. Denies suicidal ideation. A few days later, she noted that she noted decreased hearing sx. "I feel like I'm in a tunnel." Intermittent blurred vision, both eyes. Last night, while showering, she noted left-sided weakness, arm, and leg. Her L face, mouth and tongue felt funny. Px think she's had a previous episode in the past but not this bad. Patient had some fleeting chest pain, shortness of breath. No cough. Patient was brought to Emergency Room. Patient stopped aspirin 2 years ago as per family doctor advice as per px because he wanted her to be in a minimal number of pills. MEDICAL HISTORY: As above. SURGERIES: Appendectomy, cholecystectomy. HOME MEDICATIONS: Tramadol, vitamin D, Atarax, Imodium, multivitamins, Prilosec, Zofran. ALLERGIES: ALMOND, AMOXICILLIN, ERYTHROMYCIN, IODINE, CLAVULANIC ACID, CIPROFLOXACIN, [place] NUTS, PINEAPPLE, DYE. FAMILY HISTORY: Family history of heart disorder, diabetes. PERSONAL SOCIAL HISTORY: Nonsmoker, no chronic intake of alcoholic beverages. Disabled. REVIEW OF SYSTEMS: As per HPI. all other ROS negative PHYSICAL EXAMINATION: VITAL SIGNS: Blood pressure was noted to be 110/80, pulse rate 84, RR 20, temperature 37, O2 sats 98 on room air. GENERAL: Noted to be obese, anxious, no respiratory distress, dysarthria HEENT: mild facial asymmetry on the left, tongue protruding to the left side. NECK: Supple. CHEST: Clear to auscultation. HEART: Regular rate and rhythm. ABDOMEN: Soft. EXTREMITIES: No edema, no tenderness. NEUROLOGIC: mild L facial asymmetry, tongue deviated to the left. equal palatal elev, gag reflex noted. MMT of 3/5 on the left upper and lower extremities. LABS: Hemoglobin 13, hematocrit 40, white cells 8.9. Sodium 141, potassium 3.8, chloride 105, CO2 24, BUN 10, creatinine 1, glucose 100. Troponin is pending. EKG pending. CT of the head, no acute pathology. ASSESSMENT: 1. Left-sided weakness, headache ? acute stroke (hx TIAs as per px) versus complicated migraine. Hx Botox injection. 2. Chest pain, possibly from anxiety rule out pulmonary embolism. History of DVT status post anticoagulation. 3. Mood disorder. Patient claims to be very depressed from intractable migraine. 4. Post-traumatic stress disorder as per records. 5. hx fibromyalgia as per records 6. hx benzo abuse as per records PLAN: Observation PCU, neuro checks ASA for stroke prevention until stroke ruled out by MRI/MRA of brain. Decadron x 1 dose for poss complicated migraine. Neuro consult RE intractable headache, L sided weakness ER MD already in touch with Dr. Bacon. check EKG, troponin, ddimer, 2-D echo for chest pain. PE study if D-dimer abnormal. Psych consult depression. PT OT eval DVT prophylaxis with Lovenox subQ. Full code. MTDD
[2016-09-16] MEDS: BACLOFEN 10 MG TAB PO SCH ×3 (10:51→21:13)
[2016-09-16] MEDS: MULTIVITAMIN TAB PO SCH (10:51)
[2016-09-16] MEDS: ENOXAPARIN 40 MG/0.4 ML SYR SC SCH (10:51)
[2016-09-16] MEDS: hydrOXYzine HCL 10 MG TAB PO PRN (10:52)
[2016-09-16] MEDS: PANTOprazole SOD 40 MG TAB PO SCH (10:52)
[2016-09-16 12:00] VITALS: BP 121/81; PULSE 88; TEMP 36.9; O2SAT 96
[2016-09-16 12:29] VITALS: O2SAT 95; Ht 172.7 cm; Wt 98.2 kg
--- NOTE | 2016-09-16 15:34 | Neurology Consultation ---
Neurology Consultation Date of Consultation: Sep 16, 2016. Attending Physician: Pooja. Patel S Primary Care Physician: Giorgio Weiss D.O. Reason for Consultation: headache, L sided weakness History of Present Illness Source: patient Manuela is a 40 year old female who has a H PTSD, fibromyalgia, mood disorder, anxiety ,borderline personality disorder, migraines. She states that about 15 days ago she had a botox injection which she states made her headache worse. She states she then had an episode of left facial numbness and pain which developed into left sided weakness. She states this happened yesterday and got progressively worse. She also had slurred speech and unable to hold down food but nursing reports she did eat her breakfast and lunch today. denies CP, SOB, abdominal pain, current N, V, +vision changes-blurred, +some difficulty with swallowing thin liquids. Past Medical/Surgical History Medical Problems: (1) Chronic pain Status: Acute (2) Chronic pain Status: Acute (3) Depression Status: Acute (4) Dysmenorrhea Status: Acute (5) Hemiplegic migraine Status: Acute (6) Migraine Status: Acute (7) Pelvic pain Status: Acute (8) Post traumatic stress disorder Status: Acute (9) Serous otitis media Status: Acute (10) Suicidal ideation Status: Acute (11) Suicidal ideation Status: Acute (12) Suicide gesture Status: Acute Social History Smoking Status: Never smoker Drug Use: none Marital Status: in relationship Housing Status: lives with family Allergies Coded Allergies: Sterling (Verified Allergy, Severe, VOMITING,ITCHY TONGUE,FACE SWELLING, ) Macadamia Nut Oil (Verified Allergy, Severe, RASH,VOMITING,ITCHY TONGUE, FACE SWELLING, 09/16/16) Valproic Acid (Verified Allergy, Severe, TONGUE SWELLING, 09/16/16) Amoxicillin (Verified Allergy, Intermediate, BREAKOUT, 09/16/16) Ciprofloxacin (Verified Allergy, Intermediate, WELTS/SWELLING, 09/16/16) Clavulanic Acid (Verified Allergy, Intermediate, BREAKOUT, 09/16/16) Pineapple (Verified Allergy, Intermediate, VOMITING, ITCHY TONGUE, 09/16/16 ) Iodine (Verified Adverse Reaction, Intermediate, VOMITING, 09/16/16) Erythromycin (Verified Adverse Reaction, Mild, NAUSEA, 09/16/16) Iodinated Contrast Media (Verified Adverse Reaction, Mild, VOMITING, ) Current Inpatient Medications Current Inpatient Medications Medications (Trade) Dose Ordered Sig/Anil Route Start Time Stop Time Status Last Admin Dose Admin Ketorolac Tromethamine (Toradol Inj) 30 mg Q6H PRN IV 09/16/16 06:15 09/21/16 06:14 Miscellaneous 1 ea 1 ea PRN PRN N/A 09/16/16 06:45 09/16/17 06:44 Lactated Ringer's (Lr 1000ml) 1,000 ml @ 75 mls/hr [id number] ONCE IV 09/16/16 07:00 09/16/16 20:19 09/16/16 10:50 75 MLS/HR Enoxaparin Sodium (Lovenox Inj) 40 mg Q24H SC 09/16/16 08:00 10/16/16 07:59 09/16/16 10:51 40 MG Acetaminophen (Tylenol Tab) 650 mg Q4H PRN PO 09/16/16 06:45 10/16/16 06:44 Nitroglycerin (Nitrostat Tab) 0.4 mg UD PRN SL 09/16/16 06:45 10/16/16 06:44 Miscellaneous Information (Pharmacist Discharge Med Rec Consult) 1 ea UD PRN N/A 09/16/16 06:45 10/16/16 06:44 Ibuprofen (Advil Tab) 400 mg Q6H PRN PO 09/16/16 07:00 10/16/16 06:59 Ondansetron HCl (Zofran Inj) 4 mg Q6H PRN IV 09/16/16 07:00 10/16/16 06:59 Hydroxyzine HCl (Vistaril Tab) 10 mg Q6H PRN PO 09/16/16 07:00 10/16/16 06:59 09/16/16 10:52 10 MG Aspirin (Ecotrin Tab) 325 mg QAM PO 09/17/16 09:00 10/17/16 08:59 Baclofen (Lioresal Tab) 10 mg TID PO 09/16/16 09:00 10/16/16 08:59 09/16/16 14:00 10 MG Multivitamins (Multivitamin Tab) 1 tab DAILY PO 2/21/17 09:00 10/16/16 08:59 09/16/16 10:51 1 TAB Tramadol HCl (Ultram Tab) 50 mg Q6H PRN PO 09/16/16 07:00 10/16/16 06:59 Pantoprazole Sodium (Protonix Tab) 20 mg DAILY PO 09/16/16 09:00 10/16/16 08:59 09/16/16 10:52 20 MG Prazosin HCl (Prazosin) 1 mg HS PO 09/16/16 21:00 10/16/16 20:59 Physical Exam Vital Signs (Past 24 Hrs): Date Time Temp Pulse Resp B/P Pulse Ox O2 Delivery O2 Flow Rate FiO2 09/16/16 12:29 95 Room Air 09/16/16 12:00 36.9 88 18 121/81 96 Room Air 09/16/16 08:05 71 16 126/70 95 Room Air 09/16/16 07:26 66 09/16/16 05:38 77 19 96 09/16/16 05:28 121/85 09/16/16 05:11 101 09/16/16 05:08 74 24 95 09/16/16 04:58 108/62 09/16/16 04:38 101 21 97 09/16/16 04:37 82 16 127/79 98 Room Air 09/16/16 04:34 127/79 09/16/16 04:08 102 23 97 09/16/16 03:58 121/73 09/16/16 03:38 79 22 93 09/16/16 03:28 100/66 09/16/16 03:08 80 29 92 09/16/16 03:03 80 23 93 09/16/16 02:58 92/67 09/16/16 02:33 71 94 09/16/16 02:29 132/77 09/16/16 02:03 81 17 96 09/16/16 01:58 125/85 09/16/16 01:44 87 09/16/16 01:35 129/91 09/16/16 01:34 98 Room Air 09/16/16 01:34 37.4 84 20 129/91 98 Room Air Physical Exam: Constitutional: appearance nourished, healthy and obese Ears, Nose, Mouth and Throat: mucous membranes moist, no injection and skin normal, eyes normal Cardiovascular: normal S-1 and S-2 and regular rate and rhythm Respiratory: clear to auscultation (CTA) and no rales, rhonchi or wheeze Musculoskeletal: no peripheral edema and good distal pulses Skin: no stigmata of neurocutaneous disease noted and normal and intact Eyes: extraocular muscles intact (EOMI) and pupils equal, round and reactive to light (PERRL), good vascular pulsations, disc flat NEUROLOGIC EXAMINATION: Mental status: Alert and interactive Oriented to full date and location Oriented to person Speech fluent with no evidence of aphasia, talks like her tongue is thick but it is off and on not consistent Cranial Nerves smile eye brow raise symmetric, tongue midline Reflexes: Deep tendon reflexes were symmetrical and graded 2/5. Plantar responses were flexor. 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, hip flex plantar flex ext 5/5 left unable to lift arm but when elevated in air maintains leg left lifts slightly off bed but when elevated maintains for a minute Laboratory Results Past 24 Hours: 09/16/16 01:11 Red Blood Count 4.66, Mean Corpuscular Volume 87.1, Mean Corpuscular Hemoglobin 29.6, Mean Corpuscular Hemoglobin Concent 34.0, Mean Platelet Volume 10.2, Neutrophils (%) (Auto) 71.1, Lymphocytes (%) (Auto) 20.8, Monocytes (%) (Auto) 7.2, Eosinophils (%) (Auto) 0.4, Basophils (%) (Auto) 0.3, Neutrophils # (Auto) 6.36, Lymphocytes # (Auto) 1.87, Monocytes # (Auto) 0.65, Eosinophils # (Auto) 0.04, Basophils # (Auto) 0.03 09/16/16 01:11 Test 09/16/16 01:11 09/16/16 06:55 09/16/16 12:55 White Blood Count 8.97 K/uL (4.8-10.8) Red Blood Count 4.66 M/uL (4.2-5.4) Hemoglobin 13.8 g/dL (12.0-16.0) Hematocrit 40.6 % (37-47) Mean Corpuscular Volume 87.1 fL (80-100) Mean Corpuscular Hemoglobin 29.6 pg (25-34) Mean Corpuscular Hemoglobin Concent 34.0 g/dl (32-36) Platelet Count 247 K/uL (130-400) Mean Platelet Volume 10.2 fL (7.4-10.4) Neutrophils (%) (Auto) 71.1 % Lymphocytes (%) (Auto) 20.8 % Monocytes (%) (Auto) 7.2 % Eosinophils (%) (Auto) 0.4 % Basophils (%) (Auto) 0.3 % Neutrophils # (Auto) 6.36 K/uL (1.4-6.5) Lymphocytes # (Auto) 1.87 K/uL (1.2-3.4) Monocytes # (Auto) 0.65 K/uL (0.11-0.59) Eosinophils # (Auto) 0.04 K/uL (0-0.5) Basophils # (Auto) 0.03 K/uL (0-0.2) RDW Standard Deviation 43.2 fL (36.4-46.3) RDW Coefficient of Variation 13.7 % (11.5-14.5) Immature Granulocyte % (Auto) 0.2 % Immature Granulocyte # (Auto) 0.02 K/uL (0.00-0.02) D-Dimer 920 ug/L FEU (0-500) Anion Gap 12.0 mmol/L (3-11) Est Creatinine Clear Calc Drug Dose 90.6 ml/min Estimated GFR () 81.0 Estimated GFR (Non- 69.9 BUN/Creatinine Ratio 9.9 (10-20) Calcium Level 8.7 mg/dl (8.5-10.1) Total Bilirubin 0.7 mg/dl (0.2-1) Aspartate Amino Transf (AST/SGOT) 17 U/L (15-37) Alanine Aminotransferase (ALT/SGPT) 26 U/L (12-78) Alkaline Phosphatase 70 U/L (45-117) Total Protein 7.7 gm/dl (6.4-8.2) Albumin 4.0 gm/dl (3.4-5.0) Globulin 3.7 gm/dl (2.5-4.0) Albumin/Globulin Ratio 1.1 (0.9-2) Thyroid Stimulating Hormone (TSH) 2.370 uIu/ml (0.300-4.500) Chemistry Specimen Hemolysis Triglycerides Level 51 mg/dl (0-150) Cholesterol Level 160 mg/dl (0-200) HDL Cholesterol 37 mg/dl LDL Cholesterol, Calculated 113 mg/dl VLDL Cholesterol, Calculated 10 mg/dl Cholesterol/HDL Ratio 4.3 Lyme Disease IgM Antibody NEG (NEG) Troponin I < 0.015 ng/ml (0-0.045) Imaging CT head-no intracranial abnormalities Impression 40 year old female s/p headache with left sided weakness Plan 1. CT head with no abnormalities 2. continue baclofen 10 mg TID 3. MRI with and without brain pending 4. aspirin 81 mg added should add plavix is stroke is suspected 5. carotid doppler 6. echocardiogram if stroke is identified 7. this may be complex migraine. however she has been tried on multiple medication which none have given relief 8. recommend referral to [facility] in [place] headache specialist and combination of pain mgt where she is already established care 9. avoid narcotics for headache management further recommendations to follow once MRI is completed I have seen and discussed above patient with Dr Twan Bacon, neurology I know this woman from one outpatient visit and her recent stay on [address] [place] [address] she has longstanding migraines and has failed on over 40 medications and now has developed side effects and intolerance to botox after an initial favorable response to local injections. No in for what may be a recurrent hemiplegic migraine involving left face arm and leg but the exam is to some degree inconsistent and has a number of nonorganic features awaiting mri and mra which I suspect will be negative. Treatment and disposition my well be problematical and suspect early discharge will not happen Would go with nonnarcotic analgesia, steroids if symptoms of headache persist tomorrow and will need speech pt ot and perhaps a stay at [facility] if the paresis does not "resolve" agree with need for psychiatry and in the future referral out to a tertiary headache center depending on insurance. Twan Bacon MD
--- NOTE | 2016-09-16 16:10 | Progress Note ---
Internal Med Progress Note Date of Service: Sep 16, 2016. Provider Documentation: SUBJECTIVE: Patient is c/o left sided numbness and weakness, but was able to eat her lunch using her hands per RN. Talking funny, not sure if would call this slurred speech. Headaches +, No nausea, vomiting, fever, chills. OBJECTIVE: Vital Signs-as noted below Exam: GENERAL: Obese, anxious HEENT: Mild facial asymmetry on the left, tongue protruding to the left side. NECK: Supple. CHEST: Clear to auscultation. HEART: Regular rate and rhythm. ABDOMEN: Soft. EXTREMITIES: No edema, no tenderness. NEUROLOGIC: Mild Lt facial asymmetry, tongue deviated to the left. Neurological - AAOX3, Power- 3/5 left side, 5/5 all extremities, C/o decreased sensation on left side, Reflexes- normal Lab data as noted below. ASSESSMENT & PLAN: ASSESSMENT AND PLAN : HEADACHE/LEFT SIDED WEAKNESS/DECREASED SENSATION -Rule out stroke vs complicated migraine -Unclear if true weakness/slurred speech, as was able to use extremities when no one was watching her while having her lunch. Varying intensity of speech issue. -Work up- CT head- neg, MRI brain, MRA head- ordered -ASA 325 mg daily ordered MIGRAINE Hx of migraines. Received botox injection recently but says headaches worsened after that -Neurology on board ? CHEST PAIN Did not mention to me about this. -Hx of DVT s/p anticoagulation, D dimer 920, but no signs of hypoxia/Tachycardia -Will order US duplex PTSD/Mood disorder/Fibromyalgia/Hx of benzo abuse -Multiple issues, probably contributing to current symptoms, however, will rule out pathological issues -Psychiatry consulted PT OT evaluation DVT prophylaxis with Lovenox subQ. Full code. DISPOSITION PT/OT ordered To be determined Vital Signs: Date Time Temp Pulse Resp B/P Pulse Ox O2 Delivery O2 Flow Rate FiO2 09/16/16 12:29 95 Room Air 09/16/16 12:00 36.9 88 18 121/81 96 Room Air 09/16/16 08:05 71 16 126/70 95 Room Air 09/16/16 07:26 66 09/16/16 05:38 77 19 96 09/16/16 05:28 121/85 09/16/16 05:11 101 09/16/16 05:08 74 24 95 09/16/16 04:58 108/62 09/16/16 04:38 101 21 97 09/16/16 04:37 82 16 127/79 98 Room Air 09/16/16 04:34 127/79 09/16/16 04:08 102 23 97 09/16/16 03:58 121/73 09/16/16 03:38 79 22 93 09/16/16 03:28 100/66 09/16/16 03:08 80 29 92 09/16/16 03:03 80 23 93 09/16/16 02:58 92/67 09/16/16 02:33 71 94 09/16/16 02:29 132/77 09/16/16 02:03 81 17 96 09/16/16 01:58 125/85 09/16/16 01:44 87 09/16/16 01:35 129/91 09/16/16 01:34 98 Room Air 09/16/16 01:34 37.4 84 20 129/91 98 Room Air Lab Results: Results Past 24 Hours Test 09/16/16 01:11 09/16/16 06:55 09/16/16 12:55 Range/Units White Blood Count 8.97 4.8-10.8 K/uL Red Blood Count 4.66 4.2-5.4 M/uL Hemoglobin 13.8 12.0-16.0 g/dL Hematocrit 40.6 37-47 % Mean Corpuscular Volume 87.1 80-100 fL Mean Corpuscular Hemoglobin 29.6 25-34 pg Mean Corpuscular Hemoglobin Concent 34.0 32-36 g/dl Platelet Count 247 130-400 K/uL Mean Platelet Volume 10.2 7.4-10.4 fL Neutrophils (%) (Auto) 71.1 % Lymphocytes (%) (Auto) 20.8 % Monocytes (%) (Auto) 7.2 % Eosinophils (%) (Auto) 0.4 % Basophils (%) (Auto) 0.3 % Neutrophils # (Auto) 6.36 1.4-6.5 K/uL Lymphocytes # (Auto) 1.87 1.2-3.4 K/uL Monocytes # (Auto) 0.65 0.11-0.59 K/uL Eosinophils # (Auto) 0.04 0-0.5 K/uL Basophils # (Auto) 0.03 0-0.2 K/uL RDW Standard Deviation 43.2 36.4-46.3 fL RDW Coefficient of Variation 13.7 11.5-14.5 % Immature Granulocyte % (Auto) 0.2 % Immature Granulocyte # (Auto) 0.02 0.00-0.02 K/uL D-Dimer 920 0-500 ug/L FEU Sodium Level 141 136-145 mmol/L Potassium Level 3.8 3.5-5.1 mmol/L Chloride Level 105 98-107 mmol/L Carbon Dioxide Level 24 21-32 mmol/L Anion Gap 12.0 3-11 mmol/L Blood Urea Nitrogen 10 7-18 mg/dl Creatinine 1.00 0.60-1.20 mg/dl Est Creatinine Clear Calc Drug Dose 90.6 ml/min Estimated GFR () 81.0 Estimated GFR (Non- 69.9 BUN/Creatinine Ratio 9.9 10-20 Random Glucose 102 70-99 mg/dl Calcium Level 8.7 8.5-10.1 mg/dl Total Bilirubin 0.7 0.2-1 mg/dl Aspartate Amino Transf (AST/SGOT) 17 15-37 U/L Alanine Aminotransferase (ALT/SGPT) 26 12-78 U/L Alkaline Phosphatase 70 45-117 U/L Total Protein 7.7 6.4-8.2 gm/dl Albumin 4.0 3.4-5.0 gm/dl Globulin 3.7 2.5-4.0 gm/dl Albumin/Globulin Ratio 1.1 0.9-2 Thyroid Stimulating Hormone (TSH) 2.370 0.300-4.500 uIu/ml Chemistry Specimen Hemolysis Troponin I < 0.015 < 0.015 0-0.045 ng/ml Triglycerides Level 51 0-150 mg/dl Cholesterol Level 160 0-200 mg/dl HDL Cholesterol 37 mg/dl LDL Cholesterol, Calculated 113 mg/dl VLDL Cholesterol, Calculated 10 mg/dl Cholesterol/HDL Ratio 4.3 Lyme Disease IgM Antibody NEG NEG
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
--- NOTE | 2016-09-16 16:32 | DIAGNOSTIC IMAGING REPORT ---
Brain MRA HISTORY: Mental status change Stroke - Attention to [place] TECHNIQUE: 3-D [id number] MRA of the brain was performed without contrast. COMPARISON STUDY: None. FINDINGS: Visualized intracranial internal carotid arteries, distal vertebral arteries, and basilar artery are widely patent. There is no significant stenosis, occlusion, or aneurysm seen within the bilateral ACAs, MCAs, or barrel loader.. Posterior cerebral vasculature is fed at least in part by patent posterior communicating vessels. IMPRESSION: No significant stenosis, occlusion, or aneurysm within the [place]. Electronically signed by: Harman Jorge M.D. 09/16/2016 4:31 PM Dictated Date/Time: 09/16/2016 4:29 PM
--- NOTE | 2016-09-16 17:06 | DIAGNOSTIC IMAGING REPORT ---
Brain MRI WITHOUT CONTRAST HISTORY: Left-sided weakness. TECHNIQUE: Multiplanar multisequence MRI of the brain was performed without the use of contrast. COMPARISON STUDY: None. FINDINGS: There are no areas of restricted diffusion to suggest acute infarction. The midline structures are intact. The paranasal sinuses are clear. The mastoid air cells are clear. The ventricles and sulci are within normal limits for age. There is no mass, hematoma, midline shift. The major vascular flow-voids at the skull base are well maintained. IMPRESSION: No acute intracranial abnormality. Electronically signed by: Armando Butler M.D. 09/16/2016 5:04 PM Dictated Date/Time: 09/16/2016 5:01 PM
--- NOTE | 2016-09-16 17:28 | DIAGNOSTIC IMAGING REPORT ---
BILATERAL LOWER EXTREMITY VENOUS DOPPLER HISTORY: Elevated d dimer- rule out DVT COMPARISON STUDY: Venous Doppler 08/02/2010. FINDINGS: There is normal compressibility, flow, and augmentation within the bilateral lower extremity deep venous systems. IMPRESSION: No DVT within the right or left lower extremity. Electronically signed by: Armando Butler M.D. 09/16/2016 5:26 PM Dictated Date/Time: 09/16/2016 5:26 PM
[2016-09-16] MEDS: TRAMADOL HCL 50 MG TAB PO PRN ×2 (17:48→23:41)
[2016-09-16 18:11] LABS: PREG INTERNAL NEGATIVE QC NEG CLEAR BACKGROUND; PREG INTERNAL POSITIVE QC POS CONTROL LINE
[2016-09-16 18:13] LABS: MANUAL MICROSCOPIC REQUIRED? NO; REVIEW REQ? NO; URINE APPEARANCE CLOUDY (CLEAR); URINE BILIRUBIN NEG (NEG); URINE COLOR YELLOW; URINE EPITHELIAL CELL AUTO >30 /lpf (0-5); URINE NITRITE NEG (NEG); URINE SPECIFIC GRAVITY 1.019 (1.000-1.030); UROBILINOGEN NEG (NEG); ZZUR CULT IF INDIC CLEAN CATCH YES
[2016-09-16 18:21] VITALS: BP 124/76; PULSE 81; TEMP 36.8; O2SAT 95
[2016-09-16 18:38] LABS: BENZODIAZEPINE, URINE NEG (NEG); COCAINE,URINE NEG (NEG); PHENCYCLIDINE, URINE NEG (NEG)
[2016-09-16 20:00] VITALS: O2SAT 95
[2016-09-16] MEDS: PRAZOSIN HCL 1 MG CAP PO SCH (21:13)
--- NOTE | 2016-09-16 21:51 | ECHOCARDIOGRAM REPORT ---
*NOTICE TO RECEIVING LIBERTARIAN AGENCY This information is strictly Confidential and protected under [place] law. [place] law prohibits you from making any further disclosure of this information unless further disclosure is expressly permitted by the written consent of the person to whom it pertains or is authorized by law. A general authorization for the release of medical or other information is not sufficient for this purpose. Hospital accepts no responsibility if the information is made available to any other person, INCLUDING THE PATIENT. Interpretation Summary * Name: EZEQUIEL CABELLO Study Date: 09/16/2016 09:44 AM BP: 126/70 mmHg * Patient Location: C.EDINP\S\EDINP 1\S\4 HR: 88 * : 1975 (M/d/yyyy) Gender: Female Height: 68 in * Age: 40 yrs Ethnicity: [place] Weight: 216 lb * Ordering Physician: Fortino Vasquez * Referring Physician: Self, Referred * Performed By: Estephania Givens RCS * * Reason For Study: CHEST PAIN * BSA: 2.1 m2 * -- Conclusions -- * The left ventricular wall motion is normal. * There is mild concentric left ventricular hypertrophy. * Left ventricular systolic function is normal. * The LV Ejection Fraction = 60-65%. * The LV diastolic function is normal. * There is no pericardial effusion. Procedure Details * A complete two-dimensional transthoracic echocardiogram was performed (2D, M-mode, Doppler and color flow Doppler). Left Ventricle * The left ventricle is normal in size. * There is mild concentric left ventricular hypertrophy. * Left ventricular systolic function is normal. * Ejection Fraction = 60-65%. * The left ventricular wall motion is normal. Right Ventricle * The right ventricle is normal size. * The right ventricular systolic function is normal as assessed by tricuspid annular plane systolic excursion (TAPSE) (normal >1.5 cm). Atria * The left atrial size is normal. * Right atrial size is normal. * There is no evidence of atrial septal defect, but resolution does not allow assessment for a patent foramen ovale. Mitral Valve * The mitral valve is normal. * There is no mitral valve stenosis. * Significant mitral regurgitation is absent. Tricuspid Valve * The tricuspid valve is normal. * There is no tricuspid stenosis. * Significant tricuspid regurgitation is absent. Aortic Valve * The aortic valve is trileaflet. * Aortic stenosis is absent. * There is no significant aortic regurgitation. Pulmonic Valve * The pulmonary valve is not well seen, but the Doppler examination is normal without significant regurgitation or stenosis. Great Vessels * The aortic root and proximal ascending aorta are normal sized. Pericardium/Pleural * There is no pericardial effusion. Great Vessels * Normal inferior vena cava diameter and respiratory variation suggests normal central venous pressure. Left Ventricular Diastolic Function * The LV diastolic function is normal. MMode 2D Measurements and Calculations IVSd 1.2 cm IVSs 1.5 cm LVIDd 5.0 cm LVIDs 3.6 cm LVPWd 1.0 cm LVPWs 1.5 cm IVS/LVPW 1.2 FS 28.6 % EDV(Teich) 119.5 ml ESV(Teich) 53.9 ml EF(Teich) 54.9 % EDV(cubed) 126.8 ml ESV(cubed) 46.1 ml EF(cubed) 63.6 % % IVS thick 23.1 % % LVPW thick 49.4 % LV mass(C)d 217.5 grams LV mass(C)dI 103.0 grams/m\S\2 LV mass(C)s 206.8 grams LV mass(C)sI 97.9 grams/m\S\2 SV(Teich) 65.6 ml SI(Teich) 31.1 ml/m\S\2 SV(cubed) 80.7 ml SI(cubed) 38.2 ml/m\S\2 Ao root diam 3.3 cm Ao root area 8.4 cm\S\2 LA dimension 3.7 cm LA/Ao 1.1 LVOT diam 1.9 cm LVOT area 2.9 cm\S\2 LVAd ap4 27.1 cm\S\2 LVLd ap4 6.4 cm EDV(MOD-sp4) 95.1 ml EDV(sp4-el) 97.2 ml LVAs ap4 11.9 cm\S\2 LVLs ap4 4.6 cm ESV(MOD-sp4) 25.6 ml ESV(sp4-el) 26.2 ml EF(MOD-sp4) 73.1 % EF(sp4-el) 73.1 % LVAd ap2 22.3 cm\S\2 LVLd ap2 5.9 cm EDV(MOD-sp2) 68.6 ml EDV(sp2-el) 71.2 ml LVAs ap2 10.5 cm\S\2 LVLs ap2 4.6 cm ESV(MOD-sp2) 20.7 ml ESV(sp2-el) 20.3 ml EF(MOD-sp2) 69.8 % EF(sp2-el) 71.5 % LVLd %diff -7.97 % EDV(MOD-bp) 83.7 ml LVLs %diff 0.13 % ESV(MOD-bp) 23.0 ml EF(MOD-bp) 72.6 % SV(MOD-sp4) 69.5 ml SI(MOD-sp4) 32.9 ml/m\S\2 SV(MOD-sp2) 47.9 ml SI(MOD-sp2) 22.7 ml/m\S\2 SV(MOD-bp) 60.8 ml SI(MOD-bp) 28.8 ml/m\S\2 SV(sp4-el) 71.1 ml SI(sp4-el) 33.7 ml/m\S\2 SV(sp2-el) 50.9 ml SI(sp2-el) 24.1 ml/m\S\2 Doppler Measurements and Calculations MV E max malik 55.3 cm/sec MV A max malik 81.0 cm/sec MV E/A 0.68 MV P1/2t max malik 86.9 cm/sec MV P1/2t 66.5 msec MVA(P1/2t) 3.3 cm\S\2 MV dec slope 382.5 cm/sec\S\2 MV dec time 0.26 sec Ao V2 max 119.4 cm/sec Ao max PG 5.7 mmHg Ao max PG (full) 2.5 mmHg DARIA(V,A) 2.2 cm\S\2 DARIA(V,D) 2.2 cm\S\2 LV V1 max PG 3.2 mmHg LV V1 max 89.2 cm/sec PA V2 max 91.7 cm/sec PA max PG 3.4 mmHg
[2016-09-16 23:17] VITALS: BP 121/74; PULSE 88; TEMP 36.9; O2SAT 93
[2016-09-17] VITALS (9 sets, daily range): BP systolic 101–125; BP diastolic 56–90; PULSE 76–103; TEMP 36.5–36.7; O2SAT 92–98
[2016-09-17] MEDS: hydrOXYzine HCL 10 MG TAB PO PRN ×2 (00:18→21:27)
[2016-09-17 06:58] LABS: BASO % 0.2 %; BASO ABS # 0.02 K/uL (0-0.2); COMPLETE YES; IG% 0.3 %; LYMPH % 14.6 %; LYMPH ABS # 1.74 K/uL (1.2-3.4); MEAN CORPUSCULAR HEMOGLOBIN 29.8 pg (25-34); MEAN CORPUSCULAR HGB CONC 33.5 g/dl (32-36); MEAN PLATELET VOLUME 9.7 fL (7.4-10.4); MONO % 7.2 %; NEUT % 77.7 %; PLATELET COUNT 273 K/uL (130-400); RED BLOOD COUNT 3.82 M/uL (4.2-5.4); WHITE BLOOD COUNT 11.88 K/uL (4.8-10.8)
[2016-09-17 07:29] LABS: BUN/CREATININE RATIO 12.9 (10-20); CALCIUM 8.3 mg/dl (8.5-10.1); CREATININE 0.86 mg/dl (0.60-1.20); POTASSIUM 3.6 mmol/L (3.5-5.1)
[2016-09-17] MEDS: ENOXAPARIN 40 MG/0.4 ML SYR SC SCH (08:25)
[2016-09-17] MEDS: BACLOFEN 10 MG TAB PO SCH ×3 (08:26→21:27)
[2016-09-17] MEDS: MULTIVITAMIN TAB PO SCH (08:26)
[2016-09-17] MEDS: PANTOprazole SOD 40 MG TAB PO SCH (08:27)
[2016-09-17] MEDS: TRAMADOL HCL 50 MG TAB PO PRN ×2 (08:30→20:46)
[2016-09-17] MEDS ORDERED: ASPIRIN 325 MG ECTAB PO SCH (09:00)
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
--- NOTE | 2016-09-17 14:33 | Neurology Progress Notes ---
Neurology Progress Note Date of Service Sep 17, 2016. Liliana Roy is a 40 year old female who has a PMH PTSD, fibromyalgia, mood disorder, anxiety ,borderline personality disorder, migraines. She states that about 15 days ago she had a botox injection which she states made her headache worse. She states she then had an episode of left facial numbness and pain which developed into left sided weakness. She states this happened yesterday and got progressively worse. She also had slurred speech and unable to hold down food but nursing reports she did eat her breakfast and lunch today. denies CP, SOB, abdominal pain, current N, V, +vision changes-blurred, +some difficulty with swallowing thin liquids. Today she is sitting up in bed and eating her lunch. She has been up walking 60 ft with PT and walked and did ADLs with OT. She states she is still having pain but it is no worse than her normal pain. Denies CP, SOB, abdominal pain, one sided weakness, numbness tingling, N, V. Objective Date Time Temp Pulse Resp B/P Pulse Ox O2 Delivery O2 Flow Rate FiO2 09/17/16 12:00 Room Air 09/17/16 11:55 103 18 101/56 95 Room Air 09/17/16 08:00 95 Room Air 09/17/16 07:49 36.5 81 16 116/71 95 Room Air 09/17/16 04:00 95 Room Air 09/17/16 03:51 36.6 80 18 119/75 95 Room Air 09/17/16 00:00 95 Room Air 09/16/16 23:17 36.9 88 16 121/74 93 Room Air 09/16/16 20:00 95 Room Air 09/16/16 18:21 36.8 81 18 124/76 95 Room Air 09/16/16 18:18 Room Air Last 24 Hours Test 09/16/16 18:00 09/17/16 06:36 Urine Color YELLOW Urine Appearance CLOUDY Urine pH 5.0 Urine Specific [place] 1.019 Urine Protein NEG Urine Glucose (UA) NEG Urine Ketones TRACE Urine Occult Blood NEG Urine Nitrite NEG Urine Bilirubin NEG Urine Urobilinogen NEG Urine Leukocyte Esterase TRACE Urine WBC (Auto) 1-5 /hpf Urine RBC (Auto) 5-10 /hpf Urine Hyaline Casts (Auto) 5-10 /lpf Urine Epithelial Cells (Auto) >30 /lpf Urine Bacteria (Auto) 1+ Urine Test NEG Urine Opiates Screen NEG Urine Methadone, Qualitative NEG Urine Barbiturates NEG Urine Phencyclidine (PCP) Level NEG Ur Amphetamine/Methamphetamine NEG MDMA (Ecstasy) Screen NEG Urine Benzodiazepines Screen NEG Urine Cocaine Metabolite NEG Urine Marijuana (THC) POS White Blood Count 11.88 K/uL Red Blood Count 3.82 M/uL Hemoglobin 11.4 g/dL Hematocrit 34.0 % Mean Corpuscular Volume 89.0 fL Mean Corpuscular Hemoglobin 29.8 pg Mean Corpuscular Hemoglobin Concent 33.5 g/dl Platelet Count 273 K/uL Mean Platelet Volume 9.7 fL Neutrophils (%) (Auto) 77.7 % Lymphocytes (%) (Auto) 14.6 % Monocytes (%) (Auto) 7.2 % Eosinophils (%) (Auto) 0.0 % Basophils (%) (Auto) 0.2 % Neutrophils # (Auto) 9.24 K/uL Lymphocytes # (Auto) 1.74 K/uL Monocytes # (Auto) 0.85 K/uL Eosinophils # (Auto) 0.00 K/uL Basophils # (Auto) 0.02 K/uL RDW Standard Deviation 45.3 fL RDW Coefficient of Variation 13.9 % Immature Granulocyte % (Auto) 0.3 % Immature Granulocyte # (Auto) 0.03 K/uL Sodium Level 141 mmol/L Potassium Level 3.6 mmol/L Chloride Level 107 mmol/L Carbon Dioxide Level 25 mmol/L Anion Gap 9.0 mmol/L Blood Urea Nitrogen 11 mg/dl Creatinine 0.86 mg/dl Est Creatinine Clear Calc Drug Dose 106.7 ml/min Estimated GFR () 97.3 Estimated GFR (Non- 83.9 BUN/Creatinine Ratio 12.9 Random Glucose 101 mg/dl Calcium Level 8.3 mg/dl Imaging: MRI brain no contrast-No acute intracranial abnormality MRA brain -No significant stenosis, occlusion, or aneurysm within the [place]. TTE- * The left ventricular wall motion is normal. * There is mild concentric left ventricular hypertrophy. * Left ventricular systolic function is normal. * The LV Ejection Fraction = 60-65%. * The LV diastolic function is normal. * There is no pericardial effusion. * NO ASD doppler LE- No DVT within the right or left lower extremity. Exam: Physical Exam: Constitutional: appearance nourished, healthy and normal Ears, Nose, Mouth and Throat: mucous membranes moist, no injection and skin normal, eyes normal Cardiovascular: normal S-1 and S-2 and regular rate and rhythm Respiratory: clear to auscultation (CTA) and no rales, rhonchi or wheeze Musculoskeletal: no peripheral edema Skin: no stigmata of neurocutaneous disease noted and normal and intact Eyes: extraocular muscles intact (EOMI) and pupils equal, round and reactive to light (PERRL) NEUROLOGIC EXAMINATION: Mental status: Alert and interactive Oriented to full date and location Oriented to person Speech fluent with no evidence of aphasia, talking like she has a thick tongue Cranial Nerves no asymmetry to face Coordination: finger to nose with no bi pass or tremor Gait/Stance: Posture normal. Gait normal: with steady with steps, base, turning, tandem gait. Motor: Negative for pronator drift of out stretched arms with eyes closed. 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 5/5 bilaterally Current Inpatient Medications Medications (Trade) Dose Ordered Sig/Anil Route Start Time Stop Time Status Last Admin Dose Admin Ketorolac Tromethamine (Toradol Inj) 30 mg Q6H PRN IV 09/16/16 06:15 09/21/16 06:14 Miscellaneous (Iv Fluids Completed) 1 ea PRN PRN N/A 09/16/16 06:45 09/16/17 06:44 Enoxaparin Sodium (Lovenox Inj) 40 mg Q24H SC 09/16/16 08:00 10/16/16 07:59 09/17/16 08:25 40 MG Acetaminophen (Tylenol Tab) 650 mg Q4H PRN PO 09/16/16 06:45 10/16/16 06:44 Nitroglycerin (Nitrostat Tab) 0.4 mg UD PRN SL 09/16/16 06:45 10/16/16 06:44 Miscellaneous Information (Pharmacist Discharge Med Rec Consult) 1 ea UD PRN N/A 09/16/16 06:45 10/16/16 06:44 Ibuprofen (Advil Tab) 400 mg Q6H PRN PO 09/16/16 07:00 10/16/16 06:59 Ondansetron HCl (Zofran Inj) 4 mg Q6H PRN IV 09/16/16 07:00 10/16/16 06:59 09/16/16 18:46 4 MG Hydroxyzine HCl (Vistaril Tab) 10 mg Q6H PRN PO 09/16/16 07:00 10/16/16 06:59 09/17/16 00:18 10 MG Baclofen (Lioresal Tab) 10 mg TID PO 09/16/16 09:00 10/16/16 08:59 09/17/16 08:26 10 MG Multivitamins (Multivitamin Tab) 1 tab DAILY PO 09/16/16 09:00 10/16/16 08:59 09/17/16 08:26 1 TAB Tramadol HCl (Ultram Tab) 50 mg Q6H PRN PO 09/16/16 07:00 10/16/16 06:59 09/17/16 08:30 50 MG Pantoprazole Sodium (Protonix Tab) 20 mg DAILY PO 09/16/16 09:00 10/16/16 08:59 09/17/16 08:27 20 MG Prazosin HCl (Prazosin) 1 mg HS PO 09/16/16 21:00 10/16/16 20:59 09/16/16 21:13 1 MG Impression 40 year old female s/p headache with left sided weakness Plan 1. CT head with no abnormalities 2. continue baclofen 10 mg TID 3. MRI with and without brain no acute abnormalities 4. aspirin 81 mg added would continue for lifetime 5. MRA brain no acute findings 6. echocardiogram no ASD 7. this may be complex migraine. however she has been tried on multiple medication which none have given relief 8. recommend referral to [facility] headache specialist and combination of pain mgt where she is already established care 9. avoid narcotics for headache management I have seen and discussed above patient with Dr Twan Bacon, neurology Imaaging negative and patient improving but headache still an issue if stable she could be discharged and follow up with pain clinic as she does hav an appointment for this on September exam continues to show the lef facial weakness mild dysarthria but improved left arm and face strength and she did walk well in pt so doubt that rehab will get involved in the future she may need a tertiary [facility] clinic and her p may cover the [facility] in [facility] ( she has family that reside near there so the location may be very favorable ) Continue nonnarcotic analgesia if possible and hopefully cnan be discharged helga Bacon MD
[2016-09-17] MEDS: PRAZOSIN HCL 1 MG CAP PO SCH (21:52)
[2016-09-18 04:00] VITALS: BP 125/81; PULSE 63; TEMP 36.5; O2SAT 95
[2016-09-18 08:01] VITALS: BP 95/58; PULSE 77; TEMP 36.7; O2SAT 90
[2016-09-18] MEDS: MULTIVITAMIN TAB PO SCH (08:19)
[2016-09-18] MEDS: BACLOFEN 10 MG TAB PO SCH (08:19)
[2016-09-18] MEDS: PANTOprazole SOD 40 MG TAB PO SCH (08:20)
[2016-09-18] MEDS: ENOXAPARIN 40 MG/0.4 ML SYR SC SCH (08:20)
[2016-09-18] MEDS: TRAMADOL HCL 50 MG TAB PO PRN (08:26)
[2016-09-18 11:30] VITALS: BP 98/60; PULSE 77; TEMP 36.4; O2SAT 95
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
[2016-09-18] MEDS ORDERED: ASPI81TA28 PO (12:23)
--- NOTE | 2016-09-18 12:28 | Discharge Summary ---
Discharge Summary Date of Service Sep 18, 2016. Discharge Summary Admission Date: Sep 16, 2016 at 06:32 Discharge Date: Sep 18, 2016 Discharge Disposition: Home Principal Diagnosis: 1. Complicated migraine Secondary Diagnoses/Problems: 1. Fibromyalgia 2. Mood disorder Procedures: Tele monitoring CT scan head MRI brain MRA head Echocardiogram Lipid panel PT/OT Consultations: 1. Neurology 2. Psychiatry 3. PT/OT Pending Studies/Follow-Up: Instructions / Follow-Up MEDICATION CHANGES: 1. New medication: Aspirin 81 mg needs to be continued life long FOLLOW UP 1. With PCP -Dr Giorgio Weiss 09/22/16 at 2:10 PM 2. Follow up with Neurology as per schedule 3. Follow up with pain management as per schedule 4. Follow up with psychiatry as per schedule Neurology recommends [facility] Headache Clinic vs [facility] in [place] for refractory migraine headaches Medication Reconciliation New Medications: Aspirin (Aspirin Ec) 81 Mg Tab 81 MG PO DAILY for 30 Days, #30 TAB Continued Medications: Baclofen (Baclofen) 10 Mg Tab 10 MG PO TID, #90 TABS Cholecalciferol (Vitamin D) 2,000 Unit Tab 2000 INTER.UNIT PO DAILY Hydroxyzine Hcl (Atarax) 50 Mg Tab 50 MG PO HS, TAB Loperamide Hcl (Imodium) 2 Mg Cap 2 TABS PO PRN, CAP Magnesium Oxide (Magnesium-Oxide) 400 Mg Tab 400 MG PO QAM, #1 TAB Patients gets over the counter Multivitamin (Multivitamin) Tab 1 TAB PO DAILY, TAB Omeprazole (Prilosec) 20 Mg Capcr 20 MG PO DAILY, CAP Ondansetron Hcl (Zofran) 4 Mg Tab 4 MG PO UD PRN for Nausea, TAB Prazosin HCl (Prazosin HCl) 1 Mg Cap 1 MG PO HS for 30 Days, #30 CAP Tramadol Hcl (Ultram) 50 Mg Tab 50 MG PO Q6H PRN for Pain, TAB Admission Information HPI (per Admitting provider): HISTORY OF PRESENT ILLNESS: Medical history significant for chronic migraine, mood disorder, history of mini-strokes as per patient, DVT status post anticoagulation, hx seizures as per px. History of fibromyalgia as per records. [place] [facility] [place] for [place]. Patient was seen by Neurology for chronic headache symptoms during confinement. No further imaging needed. Full workup outpx for headaches. About 2 weeks ago patient had Botox injection at outpatient [facility] Pain management for migraine. Migraine headache worse after symptoms. Px admits to being very depressed because of intractable migraine. Denies suicidal ideation. A few days later, she noted that she noted decreased hearing sx. "I feel like I'm in a tunnel." Intermittent blurred vision, both eyes. Last night, while showering, she noted left-sided weakness, arm, and leg. Her L face, mouth and tongue felt funny. Px think she's had a previous episode in the past but not this bad. Patient had some fleeting chest pain, shortness of breath. No cough. Patient was brought to Emergency Room. Patient stopped aspirin 2 years ago as per family doctor advice as per px because he wanted her to be in a minimal number of pills. Hospital Course ASSESSMENT AND PLAN : HEADACHE (MIGRAINE) /LEFT SIDED WEAKNESS/DECREASED SENSATION -Resolved -Stroke ruled out. Possibly related to complicated migraine -Unclear if true weakness as was able to use extremities when no one was watching her while having her lunch and today also was using her cell phone, but when asked to lift it up was unable to do so. Does have borderline personality disorder. Able to ambulate well now, participated in PT. -Work up- CT head- neg, MRI brain- Negative, MRA head- Negative -ASA 81 mg lifetime per neurology -PT/OT ordered- cleared for discharge to home PLAN: Per neurology, may need referral to [facility] Headache specialist or [facility] in [place] where she has family. Continue with ASA 81 mg daily life long. Continue with pain mx clinic visits. MIGRAINE Hx of migraines. Received botox injection recently but says headaches worsened after that. Has had difficulties in controlling it in past - tried multiple medications with no benefit. -Toradol PRN -Neurology on board- PLAN ABOVE --> Refer to Headache specialist + Pain mx for control of her symptoms ? CHEST PAIN Did not mention to me about this. No complaints. -Hx of DVT s/p anticoagulation, D dimer 920, but no signs of hypoxia/Tachycardia -Venous duplex-= negative for DVT PTSD/Mood disorder/Fibromyalgia/Hx of benzo abuse -Multiple issues, probably contributing to current symptoms, however, will rule out pathological issues -Psychiatry consulted - no suicidal ideation, no indication for inpatient admission --> no changes in medications recommended at this point. Appreciate inputs PT OT evaluation -Was able to walk and cleared for discharge to home DVT prophylaxis with Lovenox subQ. Full code. DISPOSITION PT/OT ordered- cleared for discharge home Did not participate with PT today but I think it had more to do with her mood than not able to ambulate, as did well yesterday OK TO DISCHARGE HOME TODAY Total time spent on discharge = 32 minutes This includes examination of the patient, discharge planning, medication reconciliation, and communication with other providers. Discharge Instructions Discharge Diagnosis / Problem: 1. Complicated migraine Discharge Goals Goal(s): Improve disease control Activity Recommendations Activity Limitations: resume your previous activity (as tolerated prior to admission) . Instructions / Follow-Up Instructions / Follow-Up MEDICATION CHANGES: 1. New medication: Aspirin 81 mg needs to be continued life long FOLLOW UP 1. With PCP -Dr Giorgio Weiss 09/22/16 at 2:10 PM 2. Follow up with Neurology as per schedule 3. Follow up with pain management as per schedule 4. Follow up with psychiatry as per schedule Neurology recommends [facility] Headache Clinic vs [facility] in [place] for refractory migraine headaches Current Hospital Diet Patient's current hospital diet: AHA Diet (Heart Healthy) Discharge Diet Recommended Diet: AHA Diet (Heart Healthy) Pending Studies Studies pending at discharge: no Laboratory Results Lipid Panel Test 09/16/16 06:55 Range/Units Triglycerides Level 51 0-150 mg/dl Cholesterol Level 160 0-200 mg/dl HDL Cholesterol 37 mg/dl Cholesterol/HDL Ratio 4.3 LDL Cholesterol, Calculated 113 mg/dl Medical Emergencies . Who to Call and When: Medical Emergencies: If at any time you feel your situation is an emergency, please call 911 immediately. . Non-Emergent Contact Non-Emergency issues call your: Primary Care Provider . . "Provider Documentation" section prepared by Awilda Patel. VTE Core Measure Inpt VTE Proph given/why not?: Enoxaparin (Lovenox)SQ
[2017-03-12] MEDS ORDERED: DULO-24 PO (14:09)
[2017-04-28] MEDS ORDERED: ZNTT/150 PO (15:14)
== END 2016-09-18 13:30 | disposition home or self-care (01) ==
LOC: ENRESERVDT → ENRESERVTM → EDBD 01:33 → C.EDB 01:36 → C.EDINP 06:32 → C.MED 17:35
PROVIDERS: ADMIT Internal Medicine; ATTEND Internal Medicine
DX: G43.109 Migraine with aura, not intractable, without status migrainosus (principal); R07.9 Chest pain, unspecified; M79.7 Fibromyalgia; F33.2 Major depressive disorder, recurrent severe without psychotic features; F43.12 Post-traumatic stress disorder, chronic; E66.9 Obesity, unspecified; F40.01 Agoraphobia with panic disorder; Z79.899 Other long term (current) drug therapy

== ENCOUNTER → 2017-10-05 | Outpatient (CLI) | payer OTHER ==
[~2017-10-05] MED LIST changes: +ASPI81TA28 PO; +CYAN100T PO; -MGNO400 PO; -PRLSR20 PO; +RANI150T85 PO
--- NOTE | 2017-10-05 15:36 | DIAGNOSTIC IMAGING REPORT ---
C-SPINE ROUTINE 4 OR 5 VIEWS HISTORY: Pain. CERVICALGIA COMPARISON: None. FINDINGS: The cervical spine is visualized from C1 through the superior endplate of T1. There is no fracture. No subluxation. Moderate degenerative disc change from C5 through C7 Prevertebral soft tissues and the atlantodens interval are intact. IMPRESSION: Moderate degenerative change of the low cervical spine. No acute process. The above report was generated using voice recognition software. It may contain grammatical, syntax or spelling errors. Electronically signed by: Harman Jorge M.D. 10/05/2017 3:34 PM Dictated Date/Time: 10/05/2017 3:33 PM
== END | disposition home or self-care (01) ==
LOC: C.RADBC 14:43
PROVIDERS: ATTEND Physician Assistant Medical
DX: M54.2 Cervicalgia (principal)